=== PATIENT | female | born 1935 | race Caucasian/White ===

== ENCOUNTER 2023-04-10 09:52 | Outpatient (OUT) | payer OTHER, SELFPAY ==
[2023-04-10 10:36] LABS: Basophils Absolute Auto 0.1 10^3/uL (0.0-0.1); Basophils Percent Auto 0.9 % (0.2-2.0); Eosinophils Absolute Auto 0.2 10^3/uL (0.0-0.7); Eosinophils Percent Auto 2.4 % (0.9-7.0); Hematocrit 33.9 % (36.0-48.0); Immature Granulocytes Abs Auto 0.02 10^3/uL (0.00-0.03); Immature Granulocytes Pct Auto 0.3 % (0.0-0.5); Lymphocytes Absolute Auto 1.4 10^3/uL (1.2-3.8); Lymphocytes Percent Auto 21.4 % (20.5-60.0); Mean Corpuscular HGB Conc 32.4 g/dL (29.9-35.2); Mean Corpuscular Hemoglobin 30.2 pg (26.7-34.0); Mean Corpuscular Volume 93.1 fL (81.0-99.0); Mean Platelet Volume 10.1 fL (9.5-13.5); Monocytes Absolute Auto 0.4 10^3/uL (0.3-0.8); Neutrophils Absolute Auto 4.6 10^3/uL (1.4-6.5); Platelet Count 259 10^3/uL (150-450); Red Blood Count 3.64 10^6/uL (4.20-5.40); Red Cell Distribution Width 12.7 % (11.0-15.0); White Blood Count 6.6 10^3/uL (4.0-11.0)
[2023-04-10 11:21] LABS: Alanine Aminotransferase 24 U/L (14-59); Albumin Globulin Ratio 1.1; Albumin Level 3.9 g/dL (3.4-5.0); Alkaline Phosphatase 95 U/L (46-116); Anion Gap 11.5; Aspartate Amino Transferase 11 U/L (15-37); Bilirubin Total 0.3 mg/dL (0.2-1.0); Calcium 9.7 mg/dL (8.5-10.1); Carbon Dioxide 29.4 mmol/L (21.0-32.0); Chloride 100 mmol/L (98-107); Chol HDL Ratio 1.9; Cholesterol 152 mg/dL (<=200); Estimated GFR (African America >60 (>=60); Estimated GFR (Non-African Ame >60 (>=60); Globulin 3.5 g/dL; Glucose 112 mg/dL (74-106); HDL Cholesterol 78 mg/dL (40-60); Potassium 4.9 mmol/L (3.5-5.1); Sodium 136 mmol/L (136-145); Thyroid Stimulating Hormone 3.022 uIU/mL (0.358-3.740); Total Protein 7.4 g/dL (6.4-8.2); Triglycerides 34 mg/dL (<=150); VLDL CHOLESTEROL 6.8 mg/dL
[2023-04-10 12:46] LABS: Estimated Average Glucose 120 mg/dL; Glycohemoglobin A1C 5.8 % (4.5-6.2)
== END 2023-04-10 09:53 | disposition home or self-care (01) ==
LOC: LAB 09:56
PROVIDERS: PCP Internal Medicine; Visit Provider Internal Medicine
DX: E11.9 Type 2 diabetes mellitus without complications (principal); I10 Essential (primary) hypertension; E03.9 Hypothyroidism, unspecified; E78.5 Hyperlipidemia, unspecified
CPT/HCPCS: 36415; 80053; 80061; 83036; 84443; 85025

== ENCOUNTER 2023-08-02 08:41 | Outpatient (OUT) | payer OTHER, SELFPAY ==
--- NOTE | 2023-08-02 08:55 | US_ITS ---
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 TECHNIQUE: Duplex Doppler ultrasound analysis of carotid and vertebral arteries. . Bilateral carotid arterial duplex examination was performed using B-mode, color flow and spectral analysis. Carotid stenosis is reported according to validated velocity parameters, similar to NASCET criteria. FINDINGS: RIGHT CAROTID ARTERY Mild atherosclerotic plaque Subclavian: PSV: 107.3 cm/s cm/s EDV: 11.1 cm/s cm/s CCA: Prox: PSV: 104.8 cm/s cm/s EDV: 11.1 cm/s cm/s Mid: PSV: 82.3 cm/s cm/s EDV: 9.8 cm/s cm/s Distal: PSV: 64.4 cm/s cm/s EDV: 8.4 cm/s cm/s BULB: PSV: 32.9 cm/s cm/s EDV: 5.4 cm/s cm/s ICA: Prox: PSV: 85.6 cm/s cm/s EDV: 17.5 cm/s cm/s Mid: PSV: 88.9 cm/s cm/s EDV: 20.8 cm/s cm/s Distal: PSV: 68.8 cm/s cm/s EDV: 19.3 cm/s cm/s ECA: PSV: 87.4 cm/s cm/s EDV: 5.1 cm/s cm/s VERTEBRAL: PSV: 59.9 cm/s cm/s EDV: 7.2 cm/s cm/s, antegrade ICA/CCA ratio: PSV: 1.4 EDV: 2.5 LEFT CAROTID ARTERY Mild atherosclerotic plaque Subclavian: PSV: 101.7 cm/s cm/s EDV: 6.7 cm/s CCA: Prox: PSV: 96.3 cm/s cm/s EDV: 10.7 cm/s Mid: PSV: 97.9 cm/s cm/s EDV: 13.9 cm/s Distal: PSV: 86.6 cm/s cm/s EDV: 5.8 cm/s BULB: PSV: 62.2 cm/s cm/s EDV: 9.5 cm/s ICA: Prox: PSV: 74.3 cm/s cm/s EDV: 14.9 cm/s Mid: PSV: 80.9 cm/s cm/s EDV: 17.1 cm/s Distal: PSV: 97.4 cm/s cm/s EDV: 20.4 cm/s ECA: PSV: 90.7 cm/s cm/s EDV: 7.3 cm/s VERTEBRAL: PSV: 64.4 cm/s cm/s EDV: 16.0 cm/s , antegrade ICA/CCA ratio: PSV: 1.1 EDV: 3.5 Anechoic echogenicity the right thyroid lobe measuring 4.4 cm US/US carotid duplex BI IMPRESSION: 0-49% flow stenosis bilateral internal carotid arteries Spectral Doppler US Thresholds (Reference: Marciano EG, et al. Radiology 2000; 214:247-252) Stenosis (%) PSV (cm/sec) VICA/VCCA 0-49 <150 <2.5 50-69 150-225 2.5-4.0 >70 >225 >4.0 Electronically authenticated by: ROBSON ROCHA Date: 08/02/2023 10:39
== END 2023-08-02 08:42 | disposition home or self-care (01) ==
LOC: US 08:42
PROVIDERS: PCP Internal Medicine
DX: H35.82 Retinal ischemia (principal)
CPT/HCPCS: 93880

== ENCOUNTER 2024-01-03 10:25 | Outpatient (OUT) | payer OTHER, SELFPAY ==
[2024-01-03 11:13] LABS: Basophils Absolute Auto 0.1 10^3/uL (0.0-0.1); Basophils Percent Auto 1.2 % (0.2-2.0); Eosinophils Absolute Auto 0.3 10^3/uL (0.0-0.7); Hematocrit 36.1 % (36.0-48.0); Hemoglobin 11.9 g/dL (12.0-16.0); Immature Granulocytes Abs Auto 0.02 10^3/uL (0.00-0.03); Immature Granulocytes Pct Auto 0.2 % (0.0-0.5); Lymphocytes Absolute Auto 2.3 10^3/uL (1.2-3.8); Lymphocytes Percent Auto 26.1 % (20.5-60.0); Mean Corpuscular Hemoglobin 30.2 pg (26.7-34.0); Mean Corpuscular Volume 91.6 fL (81.0-99.0); Mean Platelet Volume 10.2 fL (9.5-13.5); Monocytes Absolute Auto 0.5 10^3/uL (0.3-0.8); Monocytes Percent Auto 5.5 % (1.7-12.0); Neutrophils Absolute Auto 5.6 10^3/uL (1.4-6.5); Platelet Count 299 10^3/uL (150-450); Red Blood Count 3.94 10^6/uL (4.20-5.40); Red Cell Distribution Width 12.5 % (11.0-15.0); White Blood Count 8.7 10^3/uL (4.0-11.0)
== END 2024-01-03 10:26 | disposition home or self-care (01) ==
LOC: LAB 10:26
PROVIDERS: PCP Internal Medicine; Visit Provider Internal Medicine
DX: I10 Essential (primary) hypertension (principal)
CPT/HCPCS: 36415; 85025

== ENCOUNTER 2024-04-04 09:05 | Outpatient (OUT) | payer OTHER, SELFPAY ==
[2024-04-04 09:59] LABS: Creatinine Urine Random 14.58 mg/dL (20.00-300.00); Protein Creatinine Ratio Urine 0.66; Total Protein Urine Random 9.6 mg/dL (<=11.9)
[2024-04-04 10:04] LABS: Estimated Average Glucose 111 mg/dL; Glycohemoglobin A1C 5.5 % (4.5-6.2)
[2024-04-04 10:19] LABS: Alanine Aminotransferase 23 U/L (14-59); Albumin Globulin Ratio 1.1; Albumin Level 3.8 g/dL (3.4-5.0); Alkaline Phosphatase 91 U/L (46-116); Anion Gap 12.6; Aspartate Amino Transferase 18 U/L (15-37); BUN Creatinine Ratio 17.8; Bilirubin Total 0.5 mg/dL (0.2-1.0); Calcium 9.8 mg/dL (8.5-10.1); Carbon Dioxide 30.2 mmol/L (21.0-32.0); Chloride 100 mmol/L (98-107); Chol HDL Ratio 1.9; Cholesterol 185 mg/dL (<=200); Estimated GFR (African America >60 (>=60); Estimated GFR (Non-African Ame 52 (>=60); Globulin 3.5 g/dL; Glucose 115 mg/dL (74-106); HDL Cholesterol 97 mg/dL (40-60); Potassium 4.8 mmol/L (3.5-5.1); Sodium 138 mmol/L (136-145); TSH W/ REFLEX FT4 4.033 uIU/mL (0.358-3.740); Total Protein 7.3 g/dL (6.4-8.2); Triglycerides 51 mg/dL (<=150); VLDL CHOLESTEROL 10.2 mg/dL
[2024-04-04 10:48] LABS: Free T4 0.92 ng/dL (0.76-1.46)
== END 2024-04-04 09:06 | disposition home or self-care (01) ==
LOC: LAB 09:05
PROVIDERS: PCP Internal Medicine; Visit Provider Internal Medicine
DX: E78.49 Other hyperlipidemia (principal); E11.42 Type 2 diabetes mellitus with diabetic polyneuropathy; I10 Essential (primary) hypertension; E03.9 Hypothyroidism, unspecified
CPT/HCPCS: 36415; 80053; 80061; 82570; 83036; 84156; 84439; 84443

== ENCOUNTER 2024-05-31 10:28 | Outpatient (OUT) | payer OTHER, SELFPAY ==
--- OUTSIDE RECORDS SUMMARY | 2024-05-31 10:51 | XMS_ITS | CCD ---
Author Organization [facility] Informat ion [facility] Care Team Providers Care Well Drill Operator Name Role Phone SHAIKH SIMON Primary Care Physician FAWWAD, SELLERS H Primary Care Unavailable TIMMIS, SANDRA Attending Unavailable TIMMIS, SANDRA Consulting Unavailable TIMMIS, SANDRA Admitting Unavailable TIMMIS, SANDRA Admitting Unavailable FAWWAD, SELLERS H Primary Care Unavailable TIMMIS, SANDRA Attending Unavailable TIMMIS, SANDRA Consulting Unavailable FAWWAD, SELLERS H Primary Care Unavailable TIMMIS, SANDRA Attending Unavailable TIMMIS, SANDRA Consulting Unavailable TIMMIS, SANDRA Admitting Unavailable AGUBOSIM, KIRSTEN Consulting Unavailable BASSAMSKIE MAYA Consulting Unavailable FAWWAD, SELLERS H Primary Care Unavailable TIMMIS, SANDRA Attending Unavailable TIMMIS, SANDRA Consulting Unavailable TIMMIS, SANDRA Admitting Unavailable DR ALEJANDRO EDWARDS Consulting Unavailable FAWWAD, SELLERS H Primary Care Unavailable FAWWAD, SELLERS H Admitting Unavailable FAWWAD, SELLERS H Attending Unavailable FAWWAD, SELLERS H Consulting Unavailable FAWWAD, SELLERS H Primary Care Unavailable FAWWAD, SELLERS H Admitting Unavailable FAWWAD, SELLERS H Attending Unavailable FAWWAD, SELLERS H Consulting Unavailable FAWWAD, SELLERS H Primary Care Unavailable FAWWAD, SELLERS H Admitting Unavailable FAWWAD, SELLERS H Attending Unavailable FAWWAD, SELLERS H Consulting Unavailable ERNESTO MEDRANO Consulting Unavailable Kanwal Bo MD Unavailable [phone] Solange ZELAYA, Ruthie Unavailable Unallocated Yojana VEGAS Provider Primary Care Provi maricruz SHAIKH SIMON Attending Unavailable RUTHIE NARVAEZ Attending UnavailSHAIKH Gonsalves Attending Unavailable SANDRA RAE Attending Unavailable Vickey English MD Primary Care Provider [phone] Medications Current Medications Medication Drug Class(es) Dates Sig (Normalized) Sig (Original) acetaminophen 325 mg / oxyCODONE hydrochloride 5 mg oral tablet (2 sources) Opioid Agonist Start: 05-27-2024 take 1 tablet by mouth once oxyCODONE-acetamin ophen (Percocet) 5-325 MG tablet Indications: Chronic knee pain after total replacement of both knee joints Take 1 tablet by mouth every 12 (twelve) hours if needed for severe pain 60 tablet 05/27/2024 Active End: 05-27-2024 take 1 tablet by mouth every six hours as needed for pain oxyCODONE-acetaminophen (Percocet) 5-325 MG tablet Take 1 tablet by mouth every 6 (six) hours if needed for severe pain 05/27/2024 Discontinued (Reorder) amLODIPine 10 mg oral tablet (4 sources) Dihydropyridine Calcium Channel Fly Start: 01-09-2024 take 1 tablet by mouth once daily amLODIPine (Norvasc) 10 MG tablet Indications: Essential (primary) hypertension (CMS/HCC) Take 1 tablet (10 mg) by mouth Daily 90 tablet 1 01/09/2024 Active carvedilol 12.5 mg oral tablet (4 sources) alpha-Adrenergic Fly, beta-Adrenergic Fly Start: 01-09-2024 take 1 tablet by mouth once carvedilol (Coreg) 12.5 MG tablet Indications: Essential (primary) hypertension (CMS/HCC) Take 1 tablet (12.5 mg) by mouth every 12 (twelve) hours 180 tablet 1 01/09/2024 Active fexofenadine hydrochloride 180 mg oral tablet (4 sources) Histamine-1 Receptor Antagonist Start: 01-09-2024 End: 07-07-2024 take 1 tablet by mouth once daily as needed fexofenadine (Tiana) 180 MG tablet Indications: Chronic allergic rhinitis Take 1 tablet (180 mg) by mouth Daily as needed (Allergies) 90 tablet 1 01/09/2024 07/07/2024 Active fluticasone propionate 0.5 mg/ml topical lotion (3 sources) Corticosteroid End: 05-22-2024 fluticasone (Cutivate) 0.05 % lotion Apply 1 application topically in the morning. 05/22/2024 Discontinued (Therapy completed) furosemide 20 mg oral tablet (4 sources) Loop Diuretic Start: 01-09-2024 End: 07-07-2024 take 1 tablet by mouth once daily furosemide (Lasix) 20 MG tablet Indications: Essential (primary) hypertension (CMS/HCC) Take 1 tablet (20 mg) by mouth Daily 90 tablet 1 01/09/2024 07/07/2024 Active gabapentin 100 mg oral capsule (4 sources) Anti-epileptic Agent Start: 10-25-2023 take 1 capsule by mouth in the morning, then take 1 capsule by mouth in the evening, then take 1 capsule by mouth at bedtime gabapentin (Neurontin) 100 MG capsule Indications: Type 2 diabetes mellitus with diabetic polyneuropathy, 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/HCC) TAKE 1 CAPSULE BY MOUTH IN THE MORNING and ONE CAPSULE IN THE EVENING and ONE CAPSULE AT BEDTIME 270 capsule 1 10/25/2023 Active levothyroxine sodium 0.075 mg oral tablet (4 sources) l-Thyroxine Start: 01-09-2024 take 1 tablet by mouth once daily levothyroxine (Synthroid, Levoxyl) 75 MCG tablet Indications: Hypothyroidism, unspecified (CMS/HCC) Take 1 tablet (75 mcg) by mouth Daily 90 tablet 1 01/09/2024 Active losartan potassium 100 mg oral tablet (4 sources) Angiotensin 2 Receptor Fly Start: 01-09-2024 take 1 tablet by mouth once daily losartan (Cozaar) 100 MG tablet Indications: Essential (primary) hypertension (CMS/HCC) Take 1 tablet (100 mg) by mouth Daily 90 tablet 1 01/09/2024 Active metFORMIN hydrochloride 500 mg oral tablet (4 sources) Biguanide Start: 01-09-2024 take 1 tablet by mouth in the morning metFORMIN (Glucophage) 500 MG tablet Indications: Type 2 diabetes mellitus without complications (CMS/HCC) Take 1 tablet (500 mg) by mouth in the morning and 1 tablet (500 mg) before bedtime. 180 tablet 1 01/09/2024 Active sertraline 50 mg oral tablet (4 sources) Serotonin Reuptake Inhibitor Start: 01-09-2024 End: 07-07-2024 take 1.5 tablets by mouth once daily sertraline (Zoloft) 50 MG tablet Indications: Recurrent major depressive disorder, in full remission (CMS/HCC) Take 1.5 tablets (75 mg) by mouth Daily 135 tablet 1 01/09/2024 07/07/2024 Active simvastatin 20 mg oral tablet (4 sources) HMG-CoA Reductase Inhibitor Start: 01-09-2024 End: 07-07-2024 take 1 tablet by mouth at bedtime simvastatin (Zocor) 20 MG tablet Indications: Other hyperlipidemia (CMS/HCC) Take 1 tablet (20 mg) by mouth at bedtime 90 tablet 1 01/09/2024 07/07/2024 Active Problems Active Problems Problem Classification Problem Date Documented Date Episodic/Chronic Diabetes mellitus with complications (4 sources) Polyneuropathy due to type 2 diabetes mellitus; Translations: [Type 2 diabetes mellitus with diabetic polyneuropathy] Onset: 07-06-2023 07-06-2023 Chronic Diabetes mellitus without complication (9 sources) Type 2 diabetes mellitus without complications; Translations: [Type 2 diabetes mellitus without complication] Onset: 04-01-2022 Chronic Disorders of lipid metabolism (5 sources) Hyperlipidemia, unspecified; Translations: [Hyperlipidemia] Onset: 01-12-2022 07-08-2023 Chronic Essential hypertension (9 sources) Essential (primary) hypertension; Translations: [Essential hypertension] Onset: 11-10-2022 07-06-2023 Chronic Gout and other crystal arthropathies (1 source) Gout, unspecified; Translations: [GOUT UNSPECIFIED] Onset: 01-12-2022 Chronic Mood disorders (5 sources) Major depressive disorder, single episode, unspecified; Translations: [Recurrent major depression in full remission] Onset: 01-12-2022 07-06-2023 Chronic Osteoarthritis (1 source) Unspecified osteoarthritis, unspecified site; Translations: [UNSPECIFIED OSTEOARTHRITIS UNS SITE] Onset: 01-12-2022 Chronic Osteoporosis (1 source) Age-related osteoporosis without current pathological fracture; Translations: [AGE-REL OSTEOPOR W/O CURR PATH FX] Onset: 01-12-2022 Chronic Other connective tissue disease (1 source) Presence of right artificial hip joint; Translations: [PRESENCE RIGHT ARTIFICIAL HIP JOINT] Onset: 02-01-2022 Chronic Other connective tissue disease (1 source) Presence of right artificial knee joint; Translations: [PRESENCE RT ARTIFICIAL KNEE JOINT] Onset: 02-01-2022 Chronic Other connective tissue disease (1 source) Presence of artificial knee joint, bilateral; Translations: [PRESENCE ARTIFICIAL KNEE JNT BILAT] Onset: 01-12-2022 Chronic Other ear and sense organ disorders (4 sources) Mixed conductive and sensorineural hearing loss, unilateral, 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; Translations: [MIXD C AND SSHL UL L EAR RSTRD HR C S] Onset: 11-11-2021 Chronic Other ear and sense organ disorders (2 sources) Mixed conductive AND sensorineural hearing loss; Translations: [Mixed conductive and sensorineural hearing loss, unilateral, 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] 05-22-2024 Chronic Other non-traumatic joint disorders (5 sources) Pain in right hip; Translations: [PAIN IN RIGHT HIP] Onset: 02-01-2022 Episodic Other non-traumatic joint disorders (5 sources) 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; Translations: [Pain in right knee] Onset: 07-06-2023 07-06-2023 Episodic Other upper respiratory disease (4 sources) Allergic rhinitis; Translations: [Allergic rhinitis, unspecified] Onset: 01-09-2024 01-09-2024 Chronic Other upper respiratory infections (1 source) Chronic maxillary sinusitis; Translations: [CHRONIC MAXILLARY SINUSITIS] Onset: 01-12-2022 Chronic Otitis media and related conditions (7 sources) Unspecified nonsuppurative otitis media, left ear; Translations: [Other specified disorders of Eustachian tube, left ear] Onset: 01-11-2022 Episodic Retinal detachments; defects; vascular occlusion; and retinopathy (4 sources) Exudative age-related macular degeneration; Translations: [Exudative age-related macular degeneration, bilateral, with active choroidal neovascularization] Onset: 07-08-2023 07-08-2023 Chronic Thyroid disorders (9 sources) Hypothyroidism, unspecified; Translations: [Hypothyroidism] Onset: 11-10-2022 07-06-2023 Chronic Unclassified (3 sources) LOW BACK PAIN, UNSPECIFIED; Translations: [LOW BACK PAIN, UNSPECIFIED] Onset: 02-01-2022 Unclassified (1 source) PERSONAL HISTORY OF COVID-19; Translations: [PERSONAL HISTORY OF COVID-19] Onset: 01-12-2022 Unclassified (1 source) CONTACT W/AND (SUSP) EXPOS COVID-19; Translations: [CONTACT W/AND (SUSP) EXPOS COVID-19] Onset: 01-11-2022 Unclassified (1 source) 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 05-27-2024 Past or Other Problems Problem Classification Problem Date Documented Da te Episodic/Chronic Heart valve disorders (1 source) Cardiac murmur, unspecified; Translations: [CARDIAC MURMUR UNSPECIFIED] Onset: 01-06-2022 Episodic Other aftercare (1 source) Other world travel counselor (current) drug therapy; Translations: [OTH SQUIRREL MAN CURRENT DRUG THERAPY] Onset: 01-06-2022 Episodic Other non-traumatic joint disorders (1 source) Pain in right knee; Translations: [PAIN IN RIGHT KNEE] Onset: 02-01-2022 Episodic Residual codes; unclassified (1 source) Acquired absence of other specified parts of digestive tract; Translations: [ACQ ABSENCE OTH PART DIGESTV TRACT] Onset: 01-12-2022 Episodic Unclassified (1 source) LOW BACK PAIN, UNSPECIFIED; Translations: [LOW BACK PAIN, UNSPECIFIED] Onset: 01-28-2022 Results Test Name Value Interpretation Reference Range Facility CBC W MANUAL DIFFon 11-08-19 23 ATYPICAL LYMPH # Normal [facility] Comment on above: Performed By: #### P OCGLUC #### [facility] [address] [address] [address] Germania Cadena ATYPICAL LYMPH % Normal [facility] Comment on above: Performed By: #### P OCGLUC #### [facility] [address] [address] [address] Germania Cadena BAND # 0.0 103/ul Normal 0.0-0.[address] [facility] Comment on above: Performed By: #### P OCGLUC #### [facility] [address] [address] [address] Germania Cadena BAND % 0 % Normal 0-[address] [facility] Comment on above: Performed By: #### P OCGLUC #### [facility] [address] [address] [address] Germania Cadena BASOM # 0.00 103/ul Normal 0.00-0.10 [facility] Comment on above: Performed By: #### P OCGLUC #### [facility] [address] [address] [address] Germania Cadena BASOM % 0.0 % Critically low 0.2-2.0 [facility] Comment on above: Performed By: #### P OCGLUC #### [facility] [address] [address] [address] Germania Cadena BLAST # Normal [facility] Comment on above: Performed By: #### P OCGLUC #### [facility] [address] [address] [address] Germania Cadena BLAST % Normal [facility] Comment on above: Performed By: #### P OCGLUC #### [facility] [address] [address] [address] Germania Cadena CORRECTED WBC Normal 4.0-11.0 [facility] Comment on above: Performed By: #### P OCGLUC #### [facility] [address] [address] [address] Germania Cadena EOS # 0.25 103/ul Normal 0.00-0.70 [facility] Comment on above: Performed By: #### P OCGLUC #### [facility] [address] [address] [address] Germania Cadena EOS% 4.0 % Normal 0.9-7.0 [facility] Comment on above: Performed By: #### P OCGLUC #### [facility] [address] [place] [address] Dr. Germania Cadena HCT 34.6 % Critically low 36.0-48.0 [facility] Comment on above: Performed By: #### P OCGLUC #### [facility] [address] [place] [address] Dr. Germania Cadena HGB 11.5 g/dl Critically low 12.0-16.0 [facility] Comment on above: Performed By: #### P OCGLUC #### [facility] [address] [address] [address] Germania Cadena LYMPHM # 1.24 103/ul Normal 1.20-3.80 [facility] Comment on above: Performed By: #### P OCGLUC #### [facility] [address] [address] [address] Germania Cadena LYMPHM% 20.0 % Critically low 20.5-60.0 [facility] Comment on above: Performed By: #### P OCGLUC #### [facility] [address] [address] [address] Germania Cadena MCH 30.4 pg Normal 26.7-34.0 [facility] Comment on above: Performed By: #### P OCGLUC #### [facility] [address] [place] [address] Dr. Germania Cadena MCHC 33.2 g/dl Normal 29.9-35.2 [facility] Comment on above: Performed By: #### P OCGLUC #### [facility] [address] [address] [address] Germania Cadena MCV 91.5 fL Normal 81.0-99.0 [facility] Comment on above: Performed By: #### P OCGLUC #### [facility] [address] [place] [address] Dr. Germania Cadena METAMYELOCYTE # Normal [facility] Comment on above: Performed By: #### P OCGLUC #### [facility] [address] [address] [address] Germania Cadena METAMYELOCYTE % Normal [facility] Comment on above: Performed By: #### P OCGLUC #### [facility] [address] [address] [address] Germania Cadena MONOM# 0.25 103/ul Critically low 0.30-0.80 [facility] Comment on above: Performed By: #### P OCGLUC #### [facility] [address] [address] [address] Germania Cadena MONOM% 4.0 % Normal 1.7-12.0 [facility] Comment on above: Performed By: #### P OCGLUC #### [facility] [address] [address] [address] Germania Cadena MPV 9.9 fL Normal 9.5-13.5 [facility] Comment on above: Performed By: #### P OCGLUC #### [facility] [address] [address] [address] Germania Cdaena MYELOCYTE # Normal [facility] Comment on above: Performed By: #### P OCGLUC #### [facility] [address] [address] [address] Germania Cadena MYELOCYTE % Normal [facility] Comment on above: Performed By: #### P OCGLUC #### [facility] [address] [place] [address] Dr. Germania Cadena NRBC Normal [facility] Comment on above: Performed By: #### P OCGLUC #### [facility] [address] [address] [address] Germania Cadena PLT 211 103/ul Normal 150-450 [facility] Comment on above: Performed By: #### P OCGLUC #### [facility] [address] [place] [address] Dr. Germania Cadena RBC 3.78 106/ul Critically low 4.20-5.40 [facility] Comment on above: Performed By: #### P OCGLUC #### [facility] [address] [place] [address] Dr. Germania Cadena RDW 12.6 % Normal 11.0-15.0 [facility] Comment on above: Performed By: #### P OCGLUC #### [facility] [address] [address] [address] Germania Cadena SEG # 4.46 103/ul Normal 1.40-6.50 [facility] Comment on above: Performed By: #### P OCGLUC #### [facility] [address] [place] [address] Dr. Germania Cadena SEG % 72.0 % Normal 43.0-75.0 [facility] Comment on above: Performed By: #### P OCGLUC #### [facility] [address] [address] [address] Germania Cadena WBC 6.2 103/ul Normal 4.0-11.0 [facility] Comment on above: Performed By: #### P OCGLUC #### [facility] [address] [place] [address] Dr. Germania Cadena GLYCOHEMOGLOBIN A1Con 2022 ADA RECOMMENDATION SEE BELOW Normal [facility] Comment on above: Result Comment: ADA RECOMMENDED LIMIT 4.0 - 6.0 ADA THERAPEUTIC TARGET < 7.0 ACTION SUGGESTED > 7.0 Performed By: #### A 1C #### [facility] [address] [place] [address] Dr. Germania Cadena Glucose [Mass/Vol] 114 mg/dL Normal [facility] Comment on above: Performed By: #### A 1C #### [facility] [address] [place] [address] Dr. Germania Cadena HbA1c (Bld) [Mass fraction] 5.6 % Normal 4.5-6.2 [facility] Comment on above: Performed By: #### A 1C #### [facility] [address] [place] [address] Dr. Germania Cadena PROF 14(COMP METB)on 023 Albumin [Mass/Vol] 3.3 g/dL Critically low 3.4-5.0 [facility] Comment on above: Performed By: #### P OCGLUC #### [facility] [address] [place] [address] Dr. Germania Cadena Albumin/Globulin [Mass ratio] 0.9 {ratio} Normal [facility] Comment on above: Performed By: #### P OCGLUC #### [facility] [address] [place] [address] Dr. Germania Cadena ALP [Catalytic activity/Vol] 91 U/L Normal 46-116 [facility] Comment on above: Performed By: #### P OCGLUC #### [facility] [address] [place] [address] Dr. Germania Cadena ALT [Catalytic activity/Vol] 40 U/L Normal 14-59 [facility] Comment on above: Performed By: #### P OCGLUC #### [facility] [address] [address] [address] Germania Cadena Anion gap [Moles/Vol] 11.1 mmol/L Normal [facility] Comment on above: Performed By: #### P OCGLUC #### [facility] [address] [address] [address] Germania Cadena AST [Catalytic activity/Vol] 22 U/L Normal 15-37 [facility] Comment on above: Performed By: #### P OCGLUC #### [facility] [address] [address] [address] Germania Cadena Bilirubin [Mass/Vol] 0.2 mg/dL Normal 0.2-1.0 [facility] Comment on above: Performed By: #### P OCGLUC #### [facility] [address] [address] [address] Germania Cadena Calcium [Mass/Vol] 9.2 mg/dL Normal 8.5-10.1 [facility] Comment on above: Performed By: #### P OCGLUC #### [facility] [address] [place] [address] Dr. Germania Cadena Chloride [Moles/Vol] 101 mmol/L Normal 98-107 [facility] Comment on above: Performed By: #### P OCGLUC #### [facility] [address] [address] [address] Germania Cadena CO2 [Moles/Vol] 28.8 mmol/L Normal 21.0-32.0 [facility] Comment on above: Performed By: #### P OCGLUC #### [facility] [address] [address] [address] Germania Cadena Creatinine [Mass/Vol] 0.85 mg/dL Normal 0.55-1.02 [facility] Comment on above: Performed By: #### P OCGLUC #### [facility] [address] [address] [address] Germania Cadena EGFR-AF LIBERIAN >60 Normal >=60 [facility] Comment on above: Performed By: #### P OCGLUC #### [facility] [address] [address] [address] Germania Cadena EGFR-NON AF LIBERIAN >60 Normal >=60 [facility] Comment on above: Performed By: #### P OCGLUC #### [facility] [address] [address] [address] Germania Cadena Globulin (S) [Mass/Vol] 3.7 g/dL Normal [facility] Comment on above: Performed By: #### P OCGLUC #### [facility] [address] [address] [address] Germania Cadena Glucose [Mass/Vol] 106 mg/dL Normal 74-106 [facility] Comment on above: Performed By: #### P OCGLUC #### [facility] [address] [address] [address] Germania Cadena Potassium [Moles/Vol] 4.3 mmol/L Normal 3.5-5.1 [facility] Comment on above: Performed By: #### P OCGLUC #### [facility] [address] [address] [address] Germania Cadena Protein [Mass/Vol] 7.0 g/dL Normal 6.4-8.2 [facility] Comment on above: Performed By: #### P OCGLUC #### [facility] [address] [address] [address] Germania Cadena Sodium [Moles/Vol] 137 mmol/L Normal 136-145 [facility] Comment on above: Performed By: #### P OCGLUC #### [facility] [address] [address] [address] Germania Cadena Urea nitrogen [Mass/Vol] 15.0 mg/dL Normal 7.0-18.0 [facility] Comment on above: Performed By: #### P OCGLUC #### [facility] [address] [address] [address] Germania Cadena Urea nitrogen/Creatinine [Mass ratio] 17.6 mg/mg Normal [facility] Comment on above: Performed By: #### P OCGLUC #### [facility] [address] [place] [address] Dr. Germania Cadena TSHon 11-07-2022 TSH 2.051 uIU/mL Normal 0.358-3.740 [facility] Comment on above: Performed By: #### P OCGLUC #### [facility] [address] [place] [address] Dr. Germania Cadena MICROALBUMIN URINEon 022 Albumin, Urine 24.8 ug/mL Normal Not Estab. [facility] Comment on above: Performed By: #### M ALBLC #### [facility] [address] [place] [address] Dr. Germania Cadena CBC AUTO DIFFon 04-01-2022 BASO # 0.1 103/ul Normal 0.0-0.1 [facility] Comment on above: Performed By: #### C BC #### [facility] [address] [place] [address] Dr. Germania Cadena Basophils/100 WBC (Bld) 1.0 % Normal 0.2-2.0 [facility] Comment on above: Performed By: #### C BC #### [facility] [address] [place] [address] Dr. Germania Cadena EO # 0.3 103/ul Normal 0.0-0.7 [facility] Comment on above: Performed By: #### C BC #### [facility] [address] [place] [address] Dr. Germania Cadena Eosinophils/100 WBC (Bld) 4.5 % Normal 0.9-7.0 [facility] Comment on above: Performed By: #### C BC #### [facility] [address] [place] [address] Dr. Germania Cadena Erythrocyte distribution width (RBC) [Ratio] 12.5 % Normal 11.0-15.0 [facility] Comment on above: Performed By: #### C BC #### [facility] [address] [place] [address] Dr. Germania Cadena Hematocrit (Bld) [Volume fraction] 35.7 % Critically low 36.0-48.0 [facility] Comment on above: Performed By: #### C BC #### [facility] [address] [place] [address] Dr. Germania Cadena Hemoglobin (Bld) [Mass/Vol] 11.8 g/dL Critically low 12.0-16.0 [facility] Comment on above: Performed By: #### C BC #### [facility] [address] [place] [address] Dr. Germania Cadena IG # 0.01 10e3/ul Normal 0.00-0.03 [facility] Comment on above: Performed By: #### C BC #### [facility] [address] [place] [address] Dr. Germania Cadena IG % 0.2 % Normal 0.0-0.5 [facility] Comment on above: Performed By: #### C BC #### [facility] [address] [place] [address] Dr. Germania Cadena LYMPH # 1.6 103/ul Normal 1.2-3.8 [facility] Comment on above: Performed By: #### C BC #### [facility] [address] [place] [address] Dr. Germania Cadena Lymphocytes/100 WBC (Bld) 26.9 % Normal 20.5-60.0 [facility] Comment on above: Performed By: #### C BC #### [facility] [address] [place] [address] Dr. Germania Cadena MANUAL DIFF REQ NO [facility] Comment on above: Performed By: #### C BC #### [facility] [address] [place] [address] Dr. Germania Cadena MCH (RBC) [Entitic mass] 30.6 pg Normal 26.7-34.0 [facility] Comment on above: Performed By: #### C BC #### [facility] [address] [place] [address] Dr. Germania Cadena MCHC (RBC) [Mass/Vol] 33.1 g/dL Normal 29.9-35.2 [facility] Comment on above: Performed By: #### C BC #### [facility] [address] [address] [address] Germania Cadena MCV (RBC) [Entitic vol] 92.5 fL Normal 81.0-99.0 [facility] Comment on above: Performed By: #### C BC #### [facility] [address] [address] [address] Germania Cadena MONO # 0.5 103/ul Normal 0.3-0.8 [facility] Comment on above: Performed By: #### C BC #### [facility] [address] [place] [address] Dr. Germania Cadena Monocytes/100 WBC (Bld) 8.2 % Normal 1.7-12.0 [facility] Comment on above: Performed By: #### C BC #### [facility] [address] [place] [address] Dr. Germania Cadena NEUT # 3.6 103/ul Normal 1.4-6.5 [facility] Comment on above: Performed By: #### C BC #### [facility] [address] [place] [address] Dr. Germania Cadena Neutrophils/100 WBC (Bld) 59.2 % Normal 43.0-75.0 [facility] Comment on above: Performed By: #### C BC #### [facility] [address] [address] [address] Germania Cadena Platelet mean volume (Bld) [Entitic vol] 10.9 fL Normal 9.5-13.5 [facility] Comment on above: Performed By: #### C BC #### [facility] [address] [address] [address] Germania Cadena PLT 254 103/ul Normal 150-[address] [facility] Comment on above: Performed By: #### C BC #### [facility] [address] [place] [address] Dr. Germania Cadena RBC 3.86 106/ul Critically low 4.20-5.40 [facility] Comment on above: Performed By: #### C BC #### [facility] [address] [address] [address] Germania Cadena WBC 6.0 103/ul Normal 4.0-11.0 [facility] Comment on above: Performed By: #### C BC #### [facility] [address] [place] [address] Dr. Germania Cadena CREATININE URINEon URINE CREAT 40.38 mg/dL Normal 20.00-300.00 [facility] Comment on above: Performed By: #### C REAU #### [facility] [address] [place] [address] Dr. Germania Cadena GLYCOHEMOGLOBIN A1Con 2021 ADA RECOMMENDATION SEE BELOW Normal [facility] Comment on above: Result Comment: ADA RECOMMENDED LIMIT 4.0 - 6.0 ADA THERAPEUTIC TARGET < 7.0 ACTION SUGGESTED > 7.0 Performed By: #### A 1C #### [facility] [address] [place] [address] Dr. Germania Cadena Glucose [Mass/Vol] 117 mg/dL Normal [facility] Comment on above: Performed By: #### A 1C #### [facility] [address] [place] [address] Dr. Germania Cadena HbA1c (Bld) [Mass fraction] 5.7 % Normal 4.5-6.2 [facility] Comment on above: Performed By: #### A 1C #### [facility] [address] [place] [address] Dr. Germania Cadena PROF CHEM 8 (BAS METB)on Anion gap [Moles/Vol] 14.6 mmol/L Normal [facility] Comment on above: Performed By: #### B MP #### [facility] [address] [place] [address] Dr. Germania Cadena Calcium [Mass/Vol] 9.8 mg/dL Normal 8.5-10.1 [facility] Comment on above: Performed By: #### B MP #### [facility] [address] [place] [address] Dr. Germania Cadena Chloride [Moles/Vol] 97 mmol/L Critically low 98-[address] [facility] Comment on above: Performed By: #### B MP #### [facility] [address] [address] [address] Germania Cadena CO2 [Moles/Vol] 29.9 mmol/L Normal 21.0-32.0 [facility] Comment on above: Performed By: #### B MP #### [facility] [address] [address] [address] Germania Cadena Creatinine [Mass/Vol] 0.78 mg/dL Normal 0.55-1.[address] [facility] Comment on above: Performed By: #### B MP #### [facility] [address] [place] [address] Dr. Germania Cadena EGFR-AF LIBERIAN >60 Normal >=60 [facility] Comment on above: Performed By: #### B MP #### [facility] [address] [place] [address] Dr. Germania Cadena EGFR-NON AF LIBERIAN >60 Normal >=[address] [facility] Comment on above: Performed By: #### B MP #### [facility] [address] [place] [address] Dr. Germania Cadena Glucose [Mass/Vol] 97 mg/dL Normal 74-106 [facility] Comment on above: Performed By: #### B MP #### [facility] [address] [place] [address] Dr. Germania Cadena Potassium [Moles/Vol] 4.5 mmol/L Normal 3.5-5.[address] [facility] Comment on above: Performed By: #### B MP #### [facility] [address] [address] [address] Germania Cadena Sodium [Moles/Vol] 137 mmol/L Normal 136-145 [facility] Comment on above: Performed By: #### B MP #### [facility] [address] [address] [address] Germania Cadena Urea nitrogen [Mass/Vol] 12.0 mg/dL Normal 7.0-18.0 [facility] Comment on above: Performed By: #### B MP #### [facility] [address] [address] [address] Germania Cadena Urea nitrogen/Creatinine [Mass ratio] 15.4 mg/mg Normal [facility] Comment on above: Performed By: #### B MP #### [facility] [address] [address] [address] Germania Cadena XR LSPINE 2_3 VIEWSon 2021 XR LSPINE 2_3 VIEWS EXAMINATION: XR LSPINE 2_3 VIEWS HISTORY: Low back pain ; chronic lumbar pain with new hip and knee pain COMPARISON: No relevant comparison available. FINDINGS: BONES: Moderate left convex curvature lumbar spine. No fracture or spondylolisthesis. Straightening of normal lordotic curvature. Moderate marked degenerative facet arthropathy L3-L4 through L5-S1. DISC SPACES: Moderate-marked disc space narrowing at all lumbar levels with prominent endplate osteophytes. PARASPINOUS: Marked atherosclerotic disease of aorta without visible aneurysm. OTHER: Negative. IMPRESSION: 1. No appreciable acute abnormality. 2. 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 Electronically authenticated by: ALEJANDRO EDWARDS Date: 2022-01-28 18:12 Normal [address] [facility] POINT OF CARE GLUCOSEon 12-23 Glucose [Mass/Vol] 112 mg/dL Critically high 74-106 [facility] Comment on above: Performed By: #### P OCGLUC #### [facility] [address] [address] [address] Germania Cadena Covid-19 PCR (CVDTBH)on 12-22 SARS-CoV-2 (COVID-19) RNA RONNIE+probe Ql (Unsp spec) Not detected Normal NOT DETECTED [facility] Comment on above: Result Comment: This test is not yet approved or cleared by the [place] FDA. When there are no FDA-approved or cleared tests available, and other criteria are met, FDA can make tests available under an emergency access mechanism called an Emergency Use Authorization (EUA). The EUA for this test is supported by the Wound Care Coordinator of Health and Human Service's (HHS's) declaration that circumstances exist to justify the emergency use of in vitro diagnostics for the detection and/or diagnosis of the virus that causes COVID-19. This EUA will remain in effect (meaning this test can be used) for the duration of the COVID-19 declaration justifying emergency of IVDs, unless it is terminated or revoked by FDA (after which the test may no longer be used). When diagnostic testing is negative, the possibility of a false negative should be considered in the context of a patient's recent exposures and the presence of clinical signs and symptoms consistent with SARS-CoV-2. Performed By: #### C VDTB #### [facility] [address] [place] [address] Dr. Germania Cadena CBC AUTO DIFFon 01-03-2022 BASO # 0.0 103/ul Normal 0.0-0.1 [facility] Comment on above: Performed By: #### C BC #### [facility] [address] [place] [address] Dr. Germania Cadena Basophils/100 WBC (Bld) 0.5 % Normal 0.2-2.0 [facility] Comment on above: Performed By: #### C BC #### [facility] [address] [place] [address] Dr. Germania Cadena EO # 0.1 103/ul Normal 0.0-0.7 [facility] Comment on above: Performed By: #### C BC #### [facility] [address] [place] [address] Dr. Germania Cadena Eosinophils/100 WBC (Bld) 1.8 % Normal 0.9-7.[address] [facility] Comment on above: Performed By: #### C BC #### [facility] [address] [place] [address] Dr. Germania Cadena Erythrocyte distribution width (RBC) [Ratio] 13.1 % Normal 11.0-15.[address] [facility] Comment on above: Performed By: #### C BC #### [facility] [address] [place] [address] Dr. Germania Cadena Hematocrit (Bld) [Volume fraction] 34.8 % Critically low 36.0-48.0 [facility] Comment on above: Performed By: #### C BC #### [facility] [address] [place] [address] Dr. Germania Cadena Hemoglobin (Bld) [Mass/Vol] 11.4 g/dL Critically low 12.0-16.0 [facility] Comment on above: Performed By: #### C BC #### [facility] [address] [place] [address] Dr. Germania Cadena IG # 0.02 10e3/ul Normal 0.00-0.03 [facility] Comment on above: Performed By: #### C BC #### [facility] [address] [place] [address] Dr. Germania Cadena IG % 0.3 % Normal 0.0-0.5 [facility] Comment on above: Performed By: #### C BC #### [facility] [address] [place] [address] Dr. Germania Cadena LYMPH # 1.0 103/ul Critically low 1.2-3.8 [facility] Comment on above: Performed By: #### C BC #### [facility] [address] [place] [address] Dr. Germania Cadena Lymphocytes/100 WBC (Bld) 13.1 % Critically low 20.5-60.0 [facility] Comment on above: Performed By: #### C BC #### [facility] [address] [place] [address] Dr. Germania Cadena MANUAL DIFF REQ NO [facility] Comment on above: Performed By: #### C BC #### [facility] [address] [place] [address] Dr. Germania Cadena MCH (RBC) [Entitic mass] 30.8 pg Normal 26.7-34.[address] [facility] Comment on above: Performed By: #### C BC #### [facility] [address] [place] [address] Dr. Germania Cadena MCHC (RBC) [Mass/Vol] 32.8 g/dL Normal 29.9-35.[address] [facility] Comment on above: Performed By: #### C BC #### [facility] [address] [address] [address] Germania Cadena MCV (RBC) [Entitic vol] 94.1 fL Normal 81.0-99.0 [facility] Comment on above: Performed By: #### C BC #### [facility] [address] [address] [address] Germania Cadena MONO # 0.4 103/ul Normal 0.3-0.8 [facility] Comment on above: Performed By: #### C BC #### [facility] [address] [address] [address] Germania Cadena Monocytes/100 WBC (Bld) 5.5 % Normal 1.7-12.0 [facility] Comment on above: Performed By: #### C BC #### [facility] [address] [address] [address] Germania Cadena NEUT # 6.1 103/ul Normal 1.4-6.5 [facility] Comment on above: Performed By: #### C BC #### [facility] [address] [address] [address] Germania Cadena Neutrophils/100 WBC (Bld) 78.8 % Critically high 43.0-75.0 [facility] Comment on above: Performed By: #### C BC #### [facility] [address] [address] [address] Germania Cadena Platelet mean volume (Bld) [Entitic vol] 10.6 fL Normal 9.5-13.[address] [facility] Comment on above: Performed By: #### C BC #### [facility] [address] [address] [address] Germania Cadena PLT 193 103/ul Normal 150-[address] [facility] Comment on above: Performed By: #### C BC #### [facility] [address] [address] [address] Germania Cadena RBC 3.70 106/ul Critically low 4.20-5.40 [facility] Comment on above: Performed By: #### C BC #### [facility] [address] [address] [address] Germania Cadena WBC 7.8 103/ul Normal 4.0-11.0 [facility] Comment on above: Performed By: #### C BC #### [facility] [address] [place] [address] Dr. Germania Cadena PROF CHEM 8 (BAS METB)on Anion gap [Moles/Vol] 11.5 mmol/L Normal [facility] Comment on above: Performed By: #### B MP #### [facility] [address] [place] [address] Dr. Germania Cadena Calcium [Mass/Vol] 9.0 mg/dL Normal 8.5-10.1 [facility] Comment on above: Performed By: #### B MP #### [facility] [address] [place] [address] Dr. Germania Cadena Chloride [Moles/Vol] 99 mmol/L Normal 98-107 [facility] Comment on above: Performed By: #### B MP #### [facility] [address] [place] [address] Dr. Germania Cadena CO2 [Moles/Vol] 30.2 mmol/L Normal 21.0-32.0 [facility] Comment on above: Performed By: #### B MP #### [facility] [address] [place] [address] Dr. Germania Cadena Creatinine [Mass/Vol] 0.85 mg/dL Normal 0.55-1.02 [facility] Comment on above: Performed By: #### B MP #### [facility] [address] [place] [address] Dr. Germania Cadena EGFR-AF LIBERIAN >60 Normal >=60 [facility] Comment on above: Performed By: #### B MP #### [facility] [address] [place] [address] Dr. Germania Cadena EGFR-NON AF LIBERIAN >60 Normal >=60 [facility] Comment on above: Performed By: #### B MP #### [facility] [address] [place] [address] Dr. Germania Cadena Glucose [Mass/Vol] 110 mg/dL Critically high 74-106 T [facility] Comment on above: Performed By: #### B MP #### [facility] [address] [address] [address] Germania Cadena Potassium [Moles/Vol] 4.7 mmol/L Normal 3.5-5.1 [facility] Comment on above: Performed By: #### B MP #### [facility] [address] [address] [address] Germania Cadena Sodium [Moles/Vol] 136 mmol/L Normal 136-145 [facility] Comment on above: Performed By: #### B MP #### [facility] [address] [address] [address] Germania Cadena Urea nitrogen [Mass/Vol] 23.0 mg/dL Critically high 7.0-18.0 [facility] Comment on above: Performed By: #### B MP #### [facility] [address] [address] [address] Germania Cadena Urea nitrogen/Creatinine [Mass ratio] 27.1 mg/mg Normal [facility] Comment on above: Performed By: #### B MP #### [facility] [address] [place] 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 LARGE POLYP OR CYST RIGHT MAXILLARY SINUS. SOFT TISSUE OPACIFICATION OF LEFT MASTOIDS AND LEFT MIDDLE EAR CANAL. 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 COMMENT: Unenhanced images were obtained. There is a large ovoid polyp or cyst within the right maxillary sinus. There is near complete soft tissue opacification of the left maxillary sinus. The right maxillary ostiomeatal complex is aerated, but the left maxillary ostiomeatal complex is soft tissue opacified. There is mucosal thickening involving some of the ethmoid air cells bilaterally and there is minimal mucosal thickening in the inferior portions of the frontal sinuses. The sphenoid sinuses are aerated and appear clear. No bone destruction is noted. The bony nasal septum is midline. The nasal turbinates are unremarkable. There is complete soft tissue opacification of left mastoid antrum and left mastoid air cells, without evidence of bone destruction on this exam. There is complete soft tissue opacification of the left middle ear canal, without evidence of erosion of the left ossicles, within the limitations of this exam. The right mastoids and right middle ear canal are aerated. There are hypertrophic degenerative arthritic changes at the atlantoodontoid articulation. All CT scans at this facility use dose modulation, iterative reconstruction, and/or weight based dosing when appropriate to reduce radiation dose to as low as reasonably achievable. FINAL REPORT Dictated: 12/28/2021 8:29 am Destin Dacosta M.D. Signed (Electronic Signature): 12/28/2021 8:29 am Signed by: Destin Dacosta M.D. Transcribed by: SHAY Technologist: BETTYE Mendez [facility] Coding Summary.on 12-27-2021 Coding Summary. [id number] G h0bWw+PGhlYWQ+WG6ZIYL zK15raBOuvC1SE5xRPK2C PTHMQAXXAO9ZFD2evUF2E FxlS7IspiQz OhnspDMuEQ83EPi1PHM4p PlkUOormJ8rtDIpK5c5Ua QeOS00gC15LHarLLXwFxE 3LjZpbjsgbWFy D6iuWfDmkIGsPjm+PHRhY mxlIHdpZHRoPScxMDAlJy AbyDvwLA4gEm2nDHYkVVV vbGxhcHNlOiBj v3mnOGVcSSgxFV4jjFlcS 6LxfUR2BCEal4i9Pt50lJ I+WPSjVMA2nPviUObxk59 6OvVur7ebHOY7 yPGbGTanAIP6A83jj3L1Q YJoWZYbGYS9oFU1bE9fhA yxnoclS9PzuUUyMnM6FQL 2eXGgfS6opOsk dajlhC0nSft+E84VFH4LY BRCSR0LLmz6B6PxKkmtoA I+ID12IKObEU55tGCxyZB ol4szpZk2MwGq CRWoXMP1dHqcQLvxn6TxR MVlN89vgVAtf1X9FWMmsG hlsCVwIbXfyQD5gQ4mTSm ekdarf4wtysfb Bjpda5guam29eZ81F02rD JpmZIHvBKQ5PTPvWXYxmJ jqos9pwI7ePz4+VYknx5l ep9qarXc9GeSs SCTeacPdtDnaDEL3j5BrF v50O4ZqyNnzu8PhPkc7cw 41qLAnx0M5qYD4GDcuQUM hhQ7dKAfjHqK5 CAAdUdUkyK64lSUaBKcqX j3cqXqxbHxaHN5sJXAssk wyFABqfX3tLYPlcGRnaIo zGT1lZCWqtgos t762ObMsPXJ4DKDwiTGmM 2UcuB2fLsZzXNOsPDVuC4 RbdJKuLByoH461UJilPlS 0IZPqbrDcK2Wu UEBkkDxlBgD6u7B4Xu1Vj 1IvfvsmBVM4SObmXED8Vv U7NqNkRiH0G8DpNnl4VDG jqZwyQB7sG1Et MBHcnhnnmexnsDD7CRVmE LCcfO43kIHnUSnkRv6pm0 Z6v260QUSaRNQelF75Le2 udDogMTBwdCBU nT9zcslow5tezllbNhTxX JDeZHe3EBi0QRRwoZlaFc KqRHG3KcL3TNR1yVBvfW1 fkFytsafpqY0k Oyc+M56maN4wEJT8EKF8w fxtTALeaiTiOK89DP47B8 RyPjwvdGFibGU+PGRpdiB evXelCG5bUaAw w2xmy0IjQHeyG9ViTTWzW NswIfg1UVBtDJD4cBE0vE 7nRADcIHblb5C7zUS2O3G oyxFrki4kl8aw HAHkEAewH79gtPHvk2B1X WDgpXG9SQQrbQyyOgAzkB 93Oyc+LQFgdNjdg0UoAik dp4bkt2ofrQu2 FaZkGSDysxClyOcvALZ3a 1TaMp10M12gFGhjGMJxGG RzZTEzRPYdjKgbax7ssJ5 wIi8+PGNvbCB3 hCI7nH2zBMTpXmE7GPrbM 437LjRbbRKlTdvjn9fif0 hziVi5VoCpLJBcbqPrnFt yJTG8n6PoUq51 B73tPJnvRKRmYWBwYCXtC QMspAarcn6fcV5pNu8+PC 5iw1rjkm31bI66rTT+PHR iOKU3wJhxUShw LITphR0oQJkoMoD7EFCyW tTyiV85jVKzZIbkHq6ttD hksNrePN2aURCuvtqpr63 2RgZzp1mzFBIm hVHmPGwoJQL7Z94ps9O4Z ZAgIFCbNBX7oSL0lN9joC lnbjogbGVmdDsgdmVydGl cNUjjLDdhK304 IHRvcDsnPlBhdGllbnQgT wTyTUm8J1FoSnx0EZXddV gzHP1zhSUmXDxhPp1qpAp vaOqyBX5rXWTi njsmf806TsDuz2glRJCce HYtVZthFLR6H82bp1K0OZ IwRBUzEUD7sFP3cB2lfXu nbjogbGVmdDsg jvNhsTgmRBjpNDisN859O HRvcDsnPkJpcnRoIERhdG V8JV71CZ89bIJoh2Y6tNQ 4V3NeEHCanwda wsjpiOM7SSLeTNSioR43S f5goWetJk5eTPVfPYI4LD YozIEqS1ZnbK7bTdTzHDO hVGBxF6OhoPXm JFggN167ULikXcB2GPMob kFiI0TmFIUibEyeCkE0r9 T8Mo9BL9E5XK21BR06qZA dh7X3xBU9N9Xl EFBzloaezjbyvPP8FFOaB IAekR37Ea8kaMizId5gJK XkMZJ2EHGmpTGhK6YzeQ8 yOiAjMDAwMDAw W4FlzVXhDLxvX323BTrcJ nJ2PPYchyTxB1SzCDLkpR ytZdV4v0P6Ii8TOSs3NK3 3XZ69xGZja9Z0 uIW0B4UhUWTovfvarytre LX1OGFtYPGguC57Ft9byA yuWo0jVPNtPNF5WHTtrOS kQ0YxdB4sQtQa CNAnRTRtQ6NdmAVcGHzwC 083BZwyIoN5DKFtleBeI2 IvHXQmgFjtBtE6d9N3Yl8 SKZFpBJ72SOE3 bFU2NU41IK63Q6DwKtxaz GFibGU+PHRhYmxlIHdpZH RoPScxMDAlJyBzdHlsZT0 hMk9nIRAcDKJg bVklxYTkCxPmp8bbPZJdT WmkPG5kxCkzP6LbvWZ2FO Oql5y8Ox09H14tU0YyuLJ +CZJbwPB9jEE8 iS6kPjNnIiS9JDceY729I aNrbYDjAvqsu2otj0topW x7UqK3OMTijmAboIzvXLF 6w3UkPt18G77b IHdpZHRoPSIxNSUiIHZhb Yyzha2sjI2yQz9+PGNvbC F2jCE7qQ8xCkEcBiW7PPu bA191YdVazOUo Hgmpk2jin8wbjZo2RsNyG MAakaUwySlkZKJ3s6TrHb 66T9LwgUpvg6SbKzu4sw0 2xHJeh0E8oLU3 Y6VtYPYttmeriGBmlFoxH Y5vWHXgwupcJOGikH6iKS GgJ1v6MgXvJoU5PSumK0S fpaW5JSWqzQTj TJckCVY5Y99ro3T3FTQpV EEiNVR8iJB9tY3gpTefno ogbGVmdDsgdmVydGljYWw nDThgN312GTTw iThlYOEaxT8mCVAytJMws HpgXO1iXLYcrndzJiOZGA 8OHW3TPAoINCDARLNUDGJ XHGOUOG80JZ76 pPRsd9T7nSA4I5RsXQQfh lhuoxxdtTP6WGKcOUQkiS 39uGWiQDgyRx3jl0Z8q55 6FFJnXRZsfP19 De4ciXpqZUAlnHGSpA6oh zvfg0eospxjZwTzBHElPQ h7ZDc3MILomQthKaXdMDK 2HiU9CPD5gZLm uL4puWjlgxainR2mGwv+M TEvMjYvMTkzNzwvdGQ+PH IoTYE3wEqvXDbzSIEdqN4 lZSIyD7u2FtPc JvS9HWuiB7YeSQZtmqygZ p80wB7tYqDpQiB6GQowO1 UstsG6DCLisIGhBCekBDM 3A90os7R3XMTi NBAkCOI5nCN0qM9vcAamm jogbGVmdDsgdmVydGljYW ggRKleC053YUNgqSybFrq 9FJajQEInXB67 WV66yRNra2K6xOL4B8GfY WDtkjaybhvowOV5DOJfMA UjrY38uKKnXNqxNk5pb3R 6q440PLNoZDFl zW29Xd3hzJgvCECduKDIv N4vvodeb1nimlrjAeCtYR WxVVe3QLr9SXHfvQwcRiK lMMY3DcT0MGS0 oEHbmT7xvBszgmdpiL7jP yc+RuAeTInfAA90LG39gA Qus8W1qFL5W5NtICCwttn himdtkAP4MASd WONdzC77nRTcOSusGi5zm 4F5p745SPGfKRMjmG79Jk 3kaDwcEZJbhXSTkP8kvvq mo9ttombxVsHi BNBaWEh1TVk1OLOsgUpsO oOyAUU8MdX0QRP5sPQklN 0ugFnqynqytQ5bKym+T3V 9xZF2uUDzgAye dGQ+XB66ee90R4SkYcshP ob1RPPoASX0zWJ0yP0qZN QcHBbvc2F1yVF1M5WvaiG cfu4ur2iyTUEi YSqqD70yrKYpd2J3VUXnj LP9QKWujBpcHbLljH63Aa c+XMHhcAkng3DrTvbnl7r tu6narDi7AjIv JSEhbfErwFyaSDU7i1PpY s41P95fAOfkDGDsHREoRQ TkEWGzgTokwa1fwD5aOq6 +YQOxtXW4zFL9 yB9hDyGeVsS4OLkqB681A yVxcQRvVcvvi9tql8ngtI p0UwIgIPXyjpApwVobRCU 7c3PqGy13Q5Sa jXcqn6EfOjp2oi83bQObz 1K9eVH7P7DzRLKkxxvywS OrjYnpEZ2wUIPqbsdfXOT lpC8xKJElV7z1 HsNuNzP8VSfeN6XpgrS3R ABcyZStXKVvgXGNcJ3dot muf2duxqceHsWjVNKkSIu 9QVl1KXXefZhg MyCbMCE2JgT4YSF4dLWpz L1kcCupvbiqtM1qBik+UG i8e3dxvRXnAN3vzLP2ZZ6 4AU44sFTqm4X5 lOV1L4PgOMXhqqbsdzoyy OM4ASZrQULrkM49Er6kdX hcAf1jRXEqNYR9ITTsbTX xF4PrbH6zYpVk ZWHkZGZsP1VgjKXnCDmfU 493YGgwRmP5XHNckdHyG1 FzUSVkuZpoKsO4e3K0Wa9 TVI23XE70OS55 iTEjr2S9rWN4L4CnHXAdj leqzcyijAN2FCCnRGHujQ 43Yu0bcJmaPo1zBWPmKWS 2DNAmcNHyP6Tl kU1yKhMuRYZkNKMeZ4Afg WKoPLogJ106DXcwLuF0UU NbohEkV4FbRWMsfHvfVcP 3u7P4Zi1JEp38 TN08GP60wKLvv5A1kGY8M 8LbQWEwmxchslzdeLO9GZ FuCQFnqE29Eq5xcJamIk4 tVLXgIAM3YDFo fHRdG9ZctM1iAaCvGEEcV ZGvR7RvyPNuCFfpA750FU dgPlP9BVVtqlSxC9XlSVQ ptRaoYdH6i1F8 Ox5QGUjknid0C6SvTqonv HI+YM66JHTpAW97cOLxcQ Rqe3emvAg5ViBpFMPaWKJ 0lGydKEswy0Zi ZXIt (more content not included)... Normal [facility] Consent for Treatmenton 06-0 Consent for Treatment [id number] .[id number]:127 Normal [facility] Physician Orderon 12-09-2021 Physician Order [id number] .00CD:127 Normal [facility] Physician Orderon 11-22-2021 Physician Order [id number] .00CD:[address] [facility] [address] TEMPORAL BONES WO CONon 0 11-12-2021 CT TEMPORAL BONES WO CON EXAMINATION: CT TEMPORAL BONES WO CON HISTORY: Mixed conductive and sensorineural hearing loss of left ear. COMPARISON: None. TECHNIQUE: CT scan performed through the temporal bones and reconstructed in the axial and coronal planes. Dose reduction techniques were achieved by using automated exposure control and/or adjustment of mA and/or kV according to patient size and/or use of iterative reconstruction technique. FINDINGS: Right mastoid air cells and middle ear are normal in appearance. The right otic capsule is normal in appearance. Facial nerve is normal in course. Vascular anatomy is normal. No evidence of dehiscence. Examination of the left temporal bone demonstrates opacification of the mastoid, mastoid attic, and middle ear. No evidence of erosion of the scutum or lateral semicircular canal. The otic capsule is normal in appearance. Facial nerve is normal in course. Vascular anatomy is normal without dehiscence. Skull base normal in appearance. Opacification of the left maxillary sinus with retention cyst in the right maxillary sinus. The nasopharynx is normal. IMPRESSION: 1. Opacification of the left middle and inner ear without erosion of the semicircular canal or scutum. 2. The right temporal bone is normal in appearance. Electronically authenticated by: Domenic GARVIN Date: 2021-11-12 16:16 Normal [facility] Vital Signs Date Time Vital Sign Value Performing Clinician Faci lity 05-22-2024 11:10040 Body height 157.5 cm Sandra Rae MD Work Phone: [facility] 05-22-2024 11:10-0400 Body mass index (BMI) [Ratio] 31.28 kg/m2 Sandra Rae MD Work Phone: [facility] 05-22-2024 11:10-040 Body weight 77.56 kg Sandra Rae MD Work Phone: [facility] 05-22-2024 11:10-0400 Diastolic blood pressure 60 mm[Hg] Sandra Rae MD Work Phone: [facility] 05-22-2024 11:10-0400 Systolic blood pressure 148 mm[Hg] Sandra Rae MD Work Phone: [facility] Encounters Encounter Date Encounter Type Care Provider Facility Start: 05-27-2024 End: 05-27-2024 Refill Marce Veliz MA [facility] Comment on above: 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) Start: 05-22-2024 End: 05-22-2024 Bamboo flowsheet Sandra Rae MD Work Phone: [facility] Start: 05-22-2024 End: 05-22-2024 Bamboo flowsheet Sandra Rae MD Work Phone: [facility] Start: 05-22-2024 End: 05-22-2024 Office outpatient visit 25 minutes Sandra Rae MD Work Phone: [facility] Comment on above: OME (otitis media wi th effusion), left (Primary Dx); Mixed conductive and sensorineural hearing loss of left ear with restricted hearing of right ear Start: 05-22-2024 End: 05-22-2024 ambulatory SANDRA RAE Not Available Start: 04-10-2024 End: 04-10-2024 ambulatory RUTHIE NARVAEZ Not Available Start: 01-09-2024 End: 01-09-2024 ambulatory SELLERS FAWWAD Not Available Start: 07-06-2023 End: 07-06-2023 ambulatory SELLERS FAWWAD Not Available Start: 07-06-2023 Patient encounter procedure Sandra Rae MD Work Phone: [facility] Start: 11-07-2022 End: 11-08-2022 ambulatory SELLERS H FAWWAD Facility:[facility] Start: 04-01-2022 End: 04-02-2022 ambulatory SELLERS H FAWWAD Facility:[facility] Start: 01-28-2022 End: 01-29-[address] ALEJANDRO EDWARDS Facility:[facility] Start: 01-11-2022 Encounter for preprocedural laboratory examination SANDRA RAE [facility] Start: 01-11-2022 End: 01-11-2022 ambulatory SHAIKH Carmine FAWWAChelsea Facility:[facility] Start: 01-08-2022 End: 01-09-2022 ambulatory SANDRA RAE Facility:[facility] Start: 01-08-2022 End: 01-09-2022 Encounter for preprocedural laboratory examination SANDRA RAE Facility:[facility] Start: 01-06-2022 Encounter for preprocedural cardiovascular examination SANDRA RAE [facility] Start: 01-03-2022 End: 01-04-2022 ambulatory SHAIKH Carmine SIMON Facility:[facility] Start: 12-24-2021 End: 12-24-2021 Patient encounter procedure Sandra Rae [facility] Start: 11-11-2021 End: 11-12-2021 ambulatory SHAIKH Carmine SIMON Facility:[facility] Plan of Treatment Date Care Activity Detail Author Start: 04-04-2025 Urine screening for protein Diabetes: Urine Protein Screening [facility] Start: 10-08-2024 End: 10-08-2024 Patient encounter procedure 10/08/2024 9:00 AM EDT Office Visit [facility] [address] [place] [id number] Ruthie Narvaez NP [address] [place] [id number] [facility] Start: 07-27-2024 Glaucoma screening Diabetes: R etinopathy Screening [facility] Start: 07-09-2024 End: 07-09-2024 Patient encounter procedure 07/09/2024 11:10 AM EST Office Visit [facility] [address] [facility] [address] [place] [address] Sandra Rae MD [address] [facility] [address] [place] [address] [facility] Start: 07-06-2024 Medicare Annual Well ness (AWV) Medicare Annual Wellness (AWV) [facility] Start: 07-06-2024 Pneumococcal Vaccine : 65+ Years (1 of 2 - PCV) Pneumococcal Vaccine: 65+ Years (1 of 2 - PCV) [facility] Comment on above: Postponed from 06/18 (Patient Refused) Start: 05-22-2024 End: 05-22-2024 Patient encounter procedure 05/22/2024 11:10 AM EDT Office Visit [facility] [address] [facility] [address] [place] [phone] Sandra Rae MD [address] [facility] [address] [place] [address] Arrived [facility] Comment on above: Arrived Start: 03-24-2024 Influenza vaccination Influenza Vacc ine (#1) [facility] Start: 10-09-2023 Hemoglobin A1c measurement Diabetes: Hemoglobin A1C [facility] Payers Date Payer Category Payer Medicare (Managed Care) [facility] [id number] 2020 Unknown [id number] 1957 Medicare [id number] 1937 Unknown [id number] 593 1937 Unknown [id number] [id number]. 593 1937 Unknown [id number] [id number]. 593 1937 Unknown [id number] [id number]. 593 1937 Unknown [id number] [id number]. 593 1937 Unknown [id number] [id number]. 593 1937 Unknown [id number] [id number]. 593 1937 Unknown [id number] [id number]. 1259 1937 Unknown [id number] [id number]. 1259 1937 Unknown [id number] [id number]. 1259 1937 Unknown [id number] [id number]. 1259 Social History Date Type Detail Facility Tobacco smoking status Never smoker [facility] Start: 07-06-2023 End: 04-10-2024 Sex Assigned At Female [facility] Start: 01-09-2024 Tobacco smoking status KSIS Never smoked tobacco [facility] Start: 01-09-2024 Tobacco use and exposure Smokeless tobacco non-user [facility] Start: 04-10-2024 End: 05-22-2024 Alcoholic beverage intake Lifetime non-drinker (finding) [facility] Start: 07-06-2023 End: 04-10-2024 History of Social function [facility] Within the last year , have you been afraid of your partner or ex-partner? No [facility] Are you now , , , , never or living with a partner? [facility] How often to you hav e a drink containing alcohol? Never [facility] How many standard drinks containing alcohol do you have on a typical day? Patient does not drink [facility] Do you feel stress - tense, restless, nervous, or anxious, or unable to sleep at night because your mind is troubled all the time - these days [OSQ] Not at all [facility] (I/We) worried whether (my/our) food would run out before (I/we) got money to buy more. Never true [facility] Start: 06-23-2023 Alcohol Comment caffeine: 1-2 cups per day [facility] Start: 1935 Sex assigned at Not on file [facility] NEGATED: Highlighted rowStart: NINF History of tobacco use Passive smoker [facility] Clinical Notes 01-11-2022 to 05-27-2024 Telephone Encounter - Marce Veliz MA - 05/27/2024 10:30 AM ESTTelephone Encounter - Marce Veliz MA - 05/27/2024 10:30 AM Manuel Rae MD - 05/22/2024 11:10 AM EDT Note Date & Type Note Facility 05-27-2024 Telephone encounter Note Pt had script for 5 days worth requesting the 90 day script like the one that Dr Simon would send in. [facility] 05-27-2024 Miscellaneous Notes Pt had script for 5 days worth requesting the 90 day script like the one that Dr Simon would send in. documented in this encounter [facility] 05-22-2024 History of Present illness Narrative Subjective Patient ID: Lise Sharp is a 88 y.o. female who presents for Ear Problem (Tube check last seen 2021. BMT 01/19/22.) Review of Systems All other systems reviewed and are negative. Family History Problem Relation Name Age of Onset Heart disease Mother Heart disease Father Heart disease Sister Heart disease Son passed ; after 2 heart surgeries Active Ambulatory Problems Diagnosis Date Noted Type 2 diabetes mellitus with diabetic polyneuropathy, 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/HCC) 07/06/2023 Primary hypertension (CMS/HCC) 07/06/2023 Other hyperlipidemia (CMS/HCC) 07/06/2023 Hypothyroid (CMS/HCC) 07/06/2023 Recurrent major depressive disorder, in full remission (CMS/HCC) 07/06/2023 Chronic knee pain after total replacement of both knee joints 07/06/2023 Encounter for Medicare annual wellness exam 07/06/2023 Exudative age-related macular degeneration, bilateral, with active choroidal neovascularization (CMS/HCC) 07/08/2023 Essential (primary) hypertension (CMS/HCC) 01/09/2024 Hypothyroidism, unspecified ([facility]/HCC) 01/09/2024 Type 2 diabetes mellitus without complications ([facility]) 01/09/2024 Chronic allergic rhinitis 01/09/2024 Resolved Ambulatory Problems Diagnosis Date Noted No Resolved Ambulatory Problems Past Medical History: Diagnosis Date Allergic rhinitis COVID-19 05/2021 Decreased hearing Depression ([facility]/HCC) Diabetes mellitus, type 2 (CMS/HCC) Dyslipidemia ([facility]/HCC) Gout HTN (hypertension) ([facility]) Intermittent palpitations Mitral late systolic murmur Osteoarthritis Osteoporosis (CMS/HCC) Thyroid disease (CMS/HCC) Ulnar nerve impingement Past Surgical History: Procedure Laterality Date APPENDECTOMY CARPAL TUNNEL RELEASE CATARACT EXTRACTION CHOLECYSTECTOMY JOINT REPLACEMENT Bilateral 2002 Knee Replacements, Dr. Lam SHOULDER ARTHROSCOPY Left TOTAL HIP ARTHROPLASTY Right 2008 Dr. Spangler TYMPANOSTOMY TUBE PLACEMENT Left 01/11/2022 Timmis No Known Allergies Current Outpatient Medications on File Prior to Visit Medication Sig Dispense Refill amLODIPine (Norvasc) 10 MG tablet Take 1 tablet (10 mg) by mouth Daily 90 tablet 1 carvedilol (Coreg) 12.5 MG tablet Take 1 tablet (12.5 mg) by mouth every 12 (twelve) hours 180 tablet 1 fexofenadine (Tiana) 180 MG tablet Take 1 tablet (180 mg) by mouth Daily as needed (Allergies) 90 tablet 1 furosemide (Lasix) 20 MG tablet Take 1 tablet (20 mg) by mouth Daily 90 tablet 1 gabapentin (Neurontin) 100 MG capsule TAKE 1 CAPSULE BY MOUTH IN THE MORNING and ONE CAPSULE IN THE EVENING and ONE CAPSULE AT BEDTIME 270 capsule 1 levothyroxine (Synthroid, Levoxyl) 75 MCG tablet Take 1 tablet (75 mcg) by mouth Daily 90 tablet 1 losartan (Cozaar) 100 MG tablet Take 1 tablet (100 mg) by mouth Daily 90 tablet 1 metFORMIN (Glucophage) 500 MG tablet Take 1 tablet (500 mg) by mouth in the morning and 1 tablet (500 mg) before bedtime. 180 tablet 1 sertraline (Zoloft) 50 MG tablet Take 1.5 tablets (75 mg) by mouth Daily 135 tablet 1 simvastatin (Zocor) 20 MG tablet Take 1 tablet (20 mg) by mouth at bedtime 90 tablet 1 [DISCONTINUED] fluticasone (Cutivate) 0.05 % lotion Apply 1 application topically in the morning. No current facility-administered medications on file prior to visit. Objective Last Recorded Vitals Vitals: 05/22/24 1110 BP: 148/60 ENT Physical Exam Ear Ear comments: LT serous effusion Respiratory Inspection: breathing unlabored; normal breathing rate; Auscultation: breath sounds are clear; Cardiovascular Inspection: extremities are warm and well perfused; no peripheral edema present; Auscultation: regular rate and rhythm; Assessment/Plan Diagnoses and all orders for this visit: OME (otitis media with effusion), left Mixed conductive and sensorineural hearing loss of left ear with restricted hearing of right ear Left HL recurred once tube out. Proceed with LT t-tube documented in this encounter [facility] 11-07-2022 Note PROCEDURE: XR HIP RT 2 3V WO PELVIS DATE: 11/07/2022 10:50 AM CDT COMPARISONS: 01/28/2022 CLINICAL INDICATION: Pain in right hip joint Hip replacement years ago. FINDINGS: There is no evidence of fractures or other acute osseous abnormalities. 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 Prosthetic components are in good position and alignment, stable from previous exam. On lateral view, hypertrophic osseous changes are noted superior lateral aspect proximal femur. These are stable from previous exam. IMPRESSION: Stable appearing prosthetic right hip when compared to 01/28/2022. [place] osseous structures show no acute abnormalities. . Electronically authenticated by: ERNESTO MEDRANO Date: 2022-11-07 12:22 [facility] 01-28-2022 Note PROCEDURE: XR KNEE R T 3V HISTORY: Pain of right knee joint ; chronic lumbar pain, new hip and knee pain COMPARISON: None. FINDINGS: BONES:Total knee replacement without evidence of hardware fracture or loosening. No bone fracture dislocation. SOFT TISSUES:No visible soft tissue swelling. EFFUSION:Large joint effusion. OTHER: Negative. IMPRESSION: 1. Right knee replacement without visible hardware failure. 2. No acute bone abnormality. 3. Moderate-large joint effusion. Electronically authenticated by: ALEJANDRO EDWARDS Date: 2022-01-28 18:09 [facility] 01-28-2022 Note PROCEDURE: XR HIP RT 2 3V W PELVIS HISTORY: Pain in right hip joint ; chronic lumbar pain increasing in severity COMPARISON: None. FINDINGS: BONES:Total right hip replacement without evidence of hardware fracture or loosening. No bone fracture dislocation. Moderate degenerative changes of left hip joint. Mild degenerative change of the sacroiliac joints. SOFT TISSUES:No visible soft tissue swelling. EFFUSION:None visible. OTHER: Negative. IMPRESSION: 1. Right hip replacement without is of hardware failure. 2. No appreciable acute bone abnormality. 3. Multifocal mild to moderate degenerative changes. Electronically authenticated by: ALEJANDRO EDWARDS Date: 2022-01-28 18:08 [facility] 01-11-2022 Note OPERATIVE NOTE OPERATION DATE: 01/11/2022 PRIMARY CARE PHYSICIAN: Dr. Sotomayor SURGEON: Sandra Rae M.D. PREOPERATIVE DIAGNOSIS: Left eustachian tube dysfunction. POSTOPERATIVE DIAGNOSIS: Left eustachian tube dysfunction. PROCEDURE: Left myringotomy and tube with microdissection, placement of a T-tube. ANESTHESIA: General LMA. COMPLICATIONS: None. FINDINGS: Left serous effusion. INDICATIONS: This 86-year-old woman presented with otitis media effusion, unresponsive to aggressive medical management. PROCEDURE: Patient identified in the holding area and taken back to the OR where she was placed in the supine position. After induction of general anesthesia by LMA, the left ear was approached with the otomicroscope. An anterior radial myringotomy was performed. Serous effusion was suctioned from the ear and a modified Adan's T-tube was folded, inserted into the ear and opened in the middle ear using microdissection. The patient was then awakened and taken to the recovery room in good condition. [facility] Signed and Approved by: DR SANDRA RAE 01/18/2022 08:11:00 [facility] Evaluation + Plan note No data available for this section [facility] Evaluation note Diagnosis Type 2 diabetes mellitus with diabetic polyneuropathy, 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/HCC)- Primary Primary hypertension (CMS/HCC) Unspecified essential hypertension Other hyperlipidemia (CMS/HCC) Hypothyroidism, unspecified type (CMS/HCC) Encounter for Medicare annual wellness exam Chronic knee pain after total replacement of both knee joints Chronic allergic rhinitis Recurrent major depressive disorder, in full remission (CMS/HCC) Chronic knee pain after total replacement of both knee joints- Primary Essential (primary) hypertension (CMS/HCC) Unspecified essential hypertension Hypothyroidism, unspecified (CMS/HCC) Type 2 diabetes mellitus without complications (CMS/HCC) Chronic allergic rhinitis Recurrent major depressive disorder, in full remission (CMS/HCC) Other hyperlipidemia (CMS/HCC) Type 2 diabetes mellitus with diabetic polyneuropathy, 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/HCC)- Primary Primary hypertension (CMS/HCC) Unspecified essential hypertension Other hyperlipidemia (CMS/HCC) Recurrent major depressive disorder, in full remission ([facility]/HCC) Chronic knee pain after total replacement of both knee joints OME (otitis media with effusion), left- Primary Mixed conductive and sensorineural hearing loss of left ear with restricted hearing of right ear documented in this encounter [facility] HealthcareEvaluation note* Diagnosis Type 2 diabetes mellitus with diabetic polyneuropathy, without long-term current use of insulin ([facility]/HCC)- Primary Primary hypertension (CMS/HCC) Unspecified essential hypertension Other hyperlipidemia ([facility]/HCC) Hypothyroidism, unspecified type ([facility]) Encounter for Medicare annual wellness exam Chronic knee pain after total replacement of both knee joints Chronic allergic rhinitis Recurrent major depressive disorder, in full remission ([facility]/HCC) Chronic knee pain after total replacement of both knee joints- Primary Essential (primary) hypertension (CMS/HCC) Unspecified essential hypertension Hypothyroidism, unspecified (CMS/HCC) Type 2 diabetes mellitus without complications (CMS/HCC) Chronic allergic rhinitis Recurrent major depressive disorder, in full remission ([facility]/HCC) Other hyperlipidemia ([facility]/HCC) Type 2 diabetes mellitus with diabetic polyneuropathy, without long-term current use of insulin ([facility]/HCC)- Primary Primary hypertension (CMS/HCC) Unspecified essential hypertension Other hyperlipidemia (CMS/HCC) Recurrent major depressive disorder, in full remission (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- Primary documented in this encounter [facility] HealthcareHospital Discharge instructions No data available for this section [facility] Summary Purpose Family History No Family History Records FoundNo Family History Records FoundNo Family History Records Found Advance Directives No Advanced Directives Records FoundNo Advanced Directives Records FoundNo Advanced Directives Records Found Additional Source Comments INFORMATION SOURCE (unrecogn ized section and content) DATE CREATED AUTHOR 12/28/2021 [facility] DATE CREATED AUTHOR AUTHOR'S ORGANIZ ATION 11/10/2022 [facility] DATE CREATED AUTHOR AUTHOR'S ORGANIZ ATION 05/24/2024 [facility] dical Specialists EPIC Care Teams (unrecognized sec tion and content) Well Drill Operator Relationship Specialty Start Date End Date Kanwal Bo MD [address] [facility] [place] [address] PCP - Devoted 07/24/22 UnallocatYojana huerta MD [address] [facility] [place] [place] [address] PCP - General Family Medicine 05/08/24 Ruthie Narvaez NP [address] [place] [address] Nurse Practitioner Family Medicine 03/04/24 Well Drill Operator Relationship Specialty Start Date End Date Kanwal Bo MD [address] [facility] [place] [address] PCP - Devoted 07/24/22 UdaycatYojana huerta MD [address] [place] [address] PCP - General Family Medicine 05/08/24 Ruthie Narvaez NP [address] [place] [address] Nurse Practitioner Family Medicine 03/04/24 Well Drill Operator Relationship Specialty Start Date End Date Kanwal Bo MD [address] [facility] [place] [address] PCP - Devoted 07/24/22 Vickey English MD [address] [place] [address] PCP - General Family Medicine 05/23/24 Ruthie Narvaez NP [address] [place], [place] [address] [address] Nurse Practitioner Family Medicine 03/04/24 Reason for Visit (unrecogniz ed section and content) Reason Comments Ear Problem Tube check last seen 2021. BMT 01/19/22. Reason Onset Date Comments Med Refill 05/27/2024 FOR RECORDS PERTAINING TO PATIENTS WHO ARE OR HAVE BEEN ENROLLED IN A CHEMICAL DEPENDENCY/SUBSTANCEABUSE PROGRAM, SOME INFORMATION MAY BE OMITTED. This clinical summary was aggregated from multiple sources. Caution should be exercised in using it in the provision of clinical care. This summary normalizes information from multiple sources, and as a consequence, information in this document may materially change the coding, format and clinical context of patient data. In addition, data may be omitted in some cases. CLINICAL DECISIONS SHOULD BE BASED ON THE PRIMARY CLINICAL RECORDS. [employer] provides no warranty or guarantee of the accuracy or completeness of information in this document.
--- NOTE | 2024-05-31 11:14 | ECG_ITS ---
[facility] [place] Test Date: 2024-05-31 Pat Name: NETO ROUSE Department: Room: - Gender: Female [employer] Server: : [id number] Requested By: ESTEBAN RAE Order Number: [id number] Reading MD: DEBORAH BOGGS Measurements Intervals [place] Rate: 63 P: 19 MD: 203 QRS: 64 QRSD: 86 T: 51 QT: 410 QTc: 421 Interpretive Statements SINUS RHYTHM WITH OCCASIONAL SUPRAVENTRICULAR PREMATURE COMPLEXES Compared to ECG 01/03/2022 14:40:54 Myocardial infarct finding no longer present Electronically Signed On 06-01-2024 6:27:03 EST by DEBORAH BOGGS
[2024-05-31 12:14] LABS: Anion Gap 13.5; Carbon Dioxide 26.6 mmol/L (21.0-32.0); Chloride 100 mmol/L (98-107); Glucose 121 mg/dL (74-106); Potassium 5.1 mmol/L (3.5-5.1); Sodium 135 mmol/L (136-145)
[2024-05-31 12:15] LABS: BUN Creatinine Ratio 19.6; Estimated GFR (African America 56 (>=60 mL/min/1.73m^2); Estimated GFR (Non-African Ame 46 (>=60 mL/min/1.73m^2)
[2024-05-31 12:26] LABS: Basophils Absolute Auto 0.1 10^3/uL (0.0-0.1); Basophils Percent Auto 1.2 % (0.2-2.0); Eosinophils Absolute Auto 0.3 10^3/uL (0.0-0.7); Eosinophils Percent Auto 4.2 % (0.9-7.0); Hematocrit 34.8 % (36.0-48.0); Hemoglobin 11.8 g/dL (12.0-16.0); Immature Granulocytes Abs Auto 0.01 10^3/uL (0.00-0.03); Immature Granulocytes Pct Auto 0.2 % (0.0-0.5); Lymphocytes Absolute Auto 1.9 10^3/uL (1.2-3.8); Lymphocytes Percent Auto 32.8 % (20.5-60.0); Mean Corpuscular HGB Conc 33.9 g/dL (29.9-35.2); Mean Corpuscular Hemoglobin 31.3 pg (26.7-34.0); Mean Corpuscular Volume 92.3 fL (81.0-99.0); Mean Platelet Volume 10.7 fL (9.5-13.5); Monocytes Absolute Auto 0.5 10^3/uL (0.3-0.8); Monocytes Percent Auto 7.8 % (1.7-12.0); Neutrophils Absolute Auto 3.2 10^3/uL (1.4-6.5); Neutrophils Percent Auto 53.8 % (43.0-75.0); Platelet Count 216 10^3/uL (150-450); Red Blood Count 3.77 10^6/uL (4.20-5.40); Red Cell Distribution Width 12.2 % (11.0-15.0); White Blood Count 5.9 10^3/uL (4.0-11.0)
== END 2024-05-31 10:29 | disposition home or self-care (01) ==
LOC: PST 10:28
PROVIDERS: Visit Provider Otolaryngology
DX: Z01.810 Encounter for preprocedural cardiovascular examination (principal); Z01.812 Encounter for preprocedural laboratory examination; H65.92 Unspecified nonsuppurative otitis media, left ear
CPT/HCPCS: 80048; 85025; 93005

== ENCOUNTER 2024-06-06 09:17 | Day surgery (SDC) | payer OTHER, SELFPAY ==
[2024-05-31 11:56] VITALS: BP 145/69; PULSE 63; TEMP 36.4; O2SAT 100; BMI 31.5
[2024-06-06] VITALS (11 sets, daily range): BP systolic 118–164; BP diastolic 56–75; PULSE 66–73; TEMP 36.2–36.6; O2SAT 98–100; BMI 31.0
--- NOTE | 2024-06-06 | OP_ITS ---
OPERATION DATE: 06/06/2024 SURGEON: Sandra Tobar M.D. PREOPERATIVE DIAGNOSIS: Left eustachian tube dysfunction. POSTOPERATIVE DIAGNOSIS: Left eustachian tube dysfunction. PROCEDURE: Left myringotomy and tube with microdissection, placement of a T- tube. ANESTHESIA: MAC. COMPLICATIONS: None. FINDINGS: Left serous effusion. INDICATIONS: This 88-year-old woman presented with development of mixed hearing loss in the left ear due to serous effusion, soon after her previously placed tympanostomy tube extruded. PROCEDURE: Patient identified in the holding area and taken back to the OR where she was placed in the supine position. After induction of MAC anesthesia, the left ear was approached with the otomicroscope and an anterior radial myringotomy was performed. A modified Adan?s T-tube was folded, inserted through the myringotomy and opened in the middle ear using microdissection. The patient was then awakened and taken to the recovery room in good condition. DAJA
--- OUTSIDE RECORDS SUMMARY | 2024-06-06 09:27 | XMS_ITS | CCD ---
Author Organization [facility] Informat ion [facility] Care Team Providers Care Hand Alterations Seamstress Name Role Phone SHAIKH SIMON Primary Care [...] MEDRANO Consulting Unavailable Kanwal Bo MD Unavailable [phone] ZELAYA, Ruthie Unavailable Unallocated Yojana VEGAS [facility] SHAIKH SIMON Attending Unavailable RUTHIE NARVAEZ Attending UnavailSHAIKH Gonsalves Attending Unavailable SANDRA RAE Attending Unavailable Vickey English MD Primary Care Provider [phone] Medications Current Medications Medication Drug Class(es) Dates Sig (Normalized) Sig (Original) acetaminophen 325 mg / oxyCODONE hydrochloride 5 mg oral tablet (3 sources) Opioid Agonist Start: 05-27-2024 take 1 [...] Discontinued (Reorder) amLODIPine 10 mg oral tablet (5 sources) Dihydropyridine Calcium Channel Fly Start: 01-09-2024 take 1 tablet by mouth once daily amLODIPine (Norvasc) 10 MG tablet Indications: Essential (primary) hypertension (CMS/HCC) Take 1 tablet (10 mg) by mouth Daily 90 tablet 1 01/09/2024 Active carvedilol 12.5 mg oral tablet (5 sources) alpha-Adrenergic Fly, beta-Adrenergic Fly Start: 01-09-2024 take 1 tablet by mouth once carvedilol (Coreg) 12.5 MG tablet Indications: Essential (primary) hypertension (CMS/HCC) Take 1 tablet (12.5 mg) by mouth every 12 (twelve) hours 180 tablet 1 01/09/2024 Active fexofenadine hydrochloride 180 mg oral tablet (5 sources) Histamine-1 Receptor Antagonist Start: 01-09-2024 End: 07-07-2024 take 1 tablet by mouth once daily as needed fexofenadine (Taina) 180 MG tablet Indications: Chronic allergic rhinitis Take 1 tablet (180 mg) by mouth Daily as needed (Allergies) 90 tablet 1 01/09/2024 07/07/2024 Active fluticasone propionate 0.5 mg/ml topical lotion (3 sources) Corticosteroid End: 05-22-2024 fluticasone (Cutivate) 0.05 % lotion Apply 1 application topically in the morning. 05/22/2024 Discontinued (Therapy completed) furosemide 20 mg oral tablet (5 sources) Loop Diuretic Start: 01-09-2024 End: 07-07-2024 take 1 tablet by mouth once daily furosemide (Lasix) 20 MG tablet Indications: Essential (primary) hypertension (CMS/HCC) Take 1 tablet (20 mg) by mouth Daily 90 tablet 1 01/09/2024 07/07/2024 Active gabapentin 100 mg oral capsule (5 sources) Anti-epileptic Agent Start: 10-25-2023 take 1 [...] Active levothyroxine sodium 0.075 mg oral tablet (5 sources) l-Thyroxine Start: 01-09-2024 take 1 tablet by mouth once daily levothyroxine (Synthroid, Levoxyl) 75 MCG tablet Indications: Hypothyroidism, unspecified (CMS/HCC) Take 1 tablet (75 mcg) by mouth Daily 90 tablet 1 01/09/2024 Active losartan potassium 100 mg oral tablet (5 sources) Angiotensin 2 Receptor Fly Start: 01-09-2024 take 1 tablet by mouth once daily losartan (Cozaar) 100 MG tablet Indications: Essential (primary) hypertension (CMS/HCC) Take 1 tablet (100 mg) by mouth Daily 90 tablet 1 01/09/2024 Active metFORMIN hydrochloride 500 mg oral tablet (5 sources) Biguanide Start: 01-09-2024 take 1 tablet by mouth in the morning metFORMIN (Glucophage) 500 MG tablet Indications: Type 2 diabetes mellitus without complications (CMS/HCC) Take 1 tablet (500 mg) by mouth in the morning and 1 tablet (500 mg) before bedtime. 180 tablet 1 01/09/2024 Active sertraline 50 mg oral tablet (5 sources) Serotonin Reuptake Inhibitor Start: 01-09-2024 End: 07-07-2024 take 1.5 tablets by mouth once daily sertraline (Zoloft) 50 MG tablet Indications: Recurrent major depressive disorder, in full remission (CMS/HCC) Take 1.5 tablets (75 mg) by mouth Daily 135 tablet 1 01/09/2024 07/07/2024 Active simvastatin 20 mg oral tablet (5 sources) HMG-CoA Reductase Inhibitor Start: 01-09-2024 End: 07-07-2024 take 1 tablet by mouth at bedtime simvastatin (Zocor) 20 MG tablet Indications: Other hyperlipidemia (CMS/HCC) Take 1 tablet (20 mg) by mouth at bedtime 90 tablet 1 01/09/2024 07/07/2024 Active Problems Active Problems Problem Classification Problem Date Documented Date Episodic/Chronic Diabetes mellitus with complications (5 sources) Polyneuropathy due to type 2 diabetes mellitus; Translations: [Type 2 diabetes mellitus with diabetic polyneuropathy] Onset: 07-06-2023 07-06-2023 Chronic Diabetes mellitus without complication (10 sources) Type 2 diabetes mellitus without complications; Translations: [Type 2 diabetes mellitus without complication] Onset: 04-01-2022 Chronic Disorders of lipid metabolism (6 sources) Hyperlipidemia, unspecified; Translations: [Hyperlipidemia] Onset: 01-12-2022 07-08-2023 Chronic Essential hypertension (11 sources) Essential (primary) hypertension; Translations: [Essential hypertension] Onset: 11-10-2022 07-06-2023 Chronic Gout and other crystal arthropathies (1 source) Gout, unspecified; Translations: [GOUT UNSPECIFIED] Onset: 01-12-2022 Chronic Mood disorders (6 sources) Major depressive disorder, single episode, unspecified; [...] IN RIGHT HIP] Onset: 02-01-2022 Episodic Other upper respiratory disease (5 sources) Allergic rhinitis; Translations: [Allergic rhinitis, unspecified] Onset: 01-09-2024 01-09-2024 Chronic Other upper respiratory infections (1 source) Chronic maxillary sinusitis; Translations: [CHRONIC MAXILLARY SINUSITIS] Onset: 01-12-2022 Chronic Otitis media and related conditions (7 sources) Unspecified nonsuppurative otitis media, left ear; Translations: [Other specified disorders of Eustachian tube, left ear] Onset: 01-11-2022 Episodic Retinal detachments; defects; vascular occlusion; and retinopathy (5 sources) Exudative age-related macular degeneration; Translations: [Exudative age-related macular degeneration, bilateral, with active choroidal neovascularization] Onset: 07-08-2023 07-08-2023 Chronic Thyroid disorders (11 sources) Hypothyroidism, unspecified; Translations: [Hypothyroidism] Onset: 11-10-2022 [...] 01-06-2022 Episodic Other aftercare (1 source) Other local company intermodal truck driver (current) drug therapy; Translations: [OTH BANANA RIPENING ROOM SUPERVISOR CURRENT DRUG THERAPY] Onset: 01-06-2022 Episodic Other non-traumatic joint disorders (1 source) Pain in right knee; Translations: [PAIN IN RIGHT KNEE] Onset: 02-01-2022 Episodic Other non-traumatic joint disorders (6 sources) 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 Calcium [Mass/Vol] 10 mg/dL 8.5 - 10. 1 mg/dL [facility] Chloride [Moles/Vol] 100 mmol/L 98 - 10 7 mmol/L [facility] CO2 [Moles/Vol] 26.6 mmol/L 21.0 - 32.0 mmol/L [facility] Creatinine [Mass/Vol] 1.12 mg/dL High 0.55 - 1.02 mg/dL [facility] GFR/1.73 sq M.predicted CKD-EPI (S/P/Bld) [Vol rate/Area] 56 Low >=60 mL/min/1.73m 2 [facility] Glucose [Mass/Vol] 121 mg/dL High 74 - 106 mg/dL NO [facility] Interpretation and review of laboratory results Abnormal [facility] Potassium [Moles/Vol] 5.1 mmol/L 3.5 - 5.1 mmol/L [facility] Sodium [Moles/Vol] 135 mmol/L Low 136 - 145 mmol/L [facility] TBH EGFR-NON AF SCOTTISH 46 Low >=60 mL/min/1.73m 2 [facility] Urea nitrogen [Mass/Vol] 22 mg/dL High 7.0 - 18.0 mg/dL [facility] Urea nitrogen/Creatinine [Mass ratio] 19.6 mg/mg [facility] e CBC W MANUAL DIFFon 11-08-19 23 ATYPICAL LYMPH # Normal [facility] Comment on above: Performed By: #### P OCGLUC #### [facility] [address] [place] [address] Dr. Germania Cadena ATYPICAL LYMPH % Normal [facility] Comment on above: Performed By: #### P OCGLUC #### [facility] [address] [place] [address] Dr. Germania Cadena BAND # 0.0 103/ul Normal 0.0-0.3 [facility] Comment on above: Performed By: #### P OCGLUC #### [facility] [address] [place] [address] Dr. Germania Cadena BAND % 0 % Normal 0-5 [facility] Comment on above: Performed By: #### P OCGLUC #### [facility] [address] [place] [address] Dr. Germania Cadena BASOM # 0.00 103/ul Normal 0.00-0.10 [facility] Comment on above: Performed By: #### P OCGLUC #### [facility] [address] [place] [address] Dr. Germania Cadena BASOM % 0.0 % Critically low 0.2-2.0 [facility] Comment on above: Performed By: #### P OCGLUC #### [facility] [address] [place] [address] Dr. Germania Cadena BLAST # Normal [facility] Comment on above: Performed By: #### P OCGLUC #### [facility] [address] [place] [address] Dr. Germania Cadena BLAST % Normal [facility] Comment on above: Performed By: #### P OCGLUC #### [facility] [address] [address] [address] Germania Cadena CORRECTED WBC Normal 4.0-11.0 [facility] Comment on above: Performed By: #### P OCGLUC #### [facility] [address] [address] [address] Germania Cadena EOS # 0.25 103/ul Normal 0.00-0.70 [facility] Comment on above: Performed By: #### P OCGLUC #### [facility] [address] [address] [address] Germania Cadena EOS% 4.0 % Normal 0.9-7.0 [facility] Comment on above: Performed By: #### P OCGLUC #### [facility] [address] [place] [address] Dr. Germania Cadena HCT 34.6 % Critically low 36.0-48.0 [facility] Comment on above: Performed By: #### P OCGLUC #### [facility] [address] [address] [address] Germania Cadena HGB 11.5 g/dl Critically low 12.0-16.0 [facility] Comment on above: Performed By: #### P OCGLUC #### [facility] [address] [address] [address] Germania Cadena LYMPHM # 1.24 103/ul Normal 1.20-3.80 [facility] Comment on above: Performed By: #### P OCGLUC #### [facility] [address] [address] [address] Germania Cadena LYMPHM% 20.0 % Critically low 20.5-60.0 [facility] Comment on above: Performed By: #### P OCGLUC #### [facility] [address] [address] [address] Germania Cadena MCH 30.4 pg Normal 26.7-34.0 [facility] Comment on above: Performed By: #### P OCGLUC #### [facility] [address] [address] [address] Germania Cadena MCHC 33.2 g/dl Normal 29.9-35.2 [facility] Comment on above: Performed By: #### P OCGLUC #### [facility] [address] [address] [address] Germania Cdaena MCV 91.5 fL Normal 81.0-99.0 [facility] Comment on above: Performed By: #### P OCGLUC #### [facility] [address] [address] [address] Germania Cadena METAMYELOCYTE # Normal [facility] Comment on above: Performed By: #### P OCGLUC #### [facility] [address] [address] [address] Germania Cadena METAMYELOCYTE % Normal [facility] Comment on above: Performed By: #### P OCGLUC #### [facility] [address] [place] [address] Dr. Germania Cadena MONOM# 0.25 103/ul Critically low 0.30-0.80 [facility] Comment on above: Performed By: #### P OCGLUC #### [facility] [address] [place] [address] Dr. Germania Cadena MONOM% 4.0 % Normal 1.7-12.0 [facility] Comment on above: Performed By: #### P OCGLUC #### [facility] [address] [address] [address] Germania Cadena MPV 9.9 fL Normal 9.5-13.5 [facility] Comment on above: Performed By: #### P OCGLUC #### [facility] [address] [address] [address] Germania Cadena MYELOCYTE # Normal [facility] Comment on above: Performed By: #### P OCGLUC #### [facility] [address] [place] [address] Dr. Germania Cadena MYELOCYTE % Normal [facility] Comment on above: Performed By: #### P OCGLUC #### [facility] [address] [address] [address] Germania Cadena NRBC Normal [facility] Comment on above: Performed By: #### P OCGLUC #### [facility] [address] [address] [address] Germania Cadena PLT 211 103/ul Normal 150-450 [facility] Comment on above: Performed By: #### P OCGLUC #### [facility] [address] [address] [address] Germania Cadena RBC 3.78 106/ul Critically low 4.20-5.40 [facility] Comment on above: Performed By: #### P OCGLUC #### [facility] [address] [address] [address] Germania Cadena RDW 12.6 % Normal 11.0-15.0 [facility] Comment on above: Performed By: #### P OCGLUC #### [facility] [address] [address] [address] Germania Cadena SEG # 4.46 103/ul Normal 1.40-6.50 [facility] Comment on above: Performed By: #### P OCGLUC #### [facility] [address] [address] [address] Germania Cadena SEG % 72.0 % Normal 43.0-75.0 [facility] Comment on above: Performed By: #### P OCGLUC #### [facility] [address] [address] [address] Germania Cadena WBC 6.2 103/ul Normal 4.0-11.0 [facility] Comment on above: Performed By: #### P OCGLUC #### [facility] [address] [address] [address] Germania Cadena GLYCOHEMOGLOBIN A1Con 2022 ADA RECOMMENDATION SEE BELOW Normal [facility] Comment on above: Result Comment: ADA RECOMMENDED LIMIT 4.0 - 6.0 ADA THERAPEUTIC TARGET < 7.0 ACTION SUGGESTED > 7.0 Performed By: #### A 1C #### [facility] [address] [address] [address] Germania Cadena Glucose [Mass/Vol] 114 mg/dL Normal [facility] Comment on above: Performed By: #### A 1C #### [facility] [address] [place] [address] Dr. Germania Cadena HbA1c (Bld) [Mass fraction] 5.6 % Normal 4.5-6.2 [facility] Comment on above: Performed By: #### A 1C #### [facility] [address] [place] [address] Dr. Germania Cadena PROF 14(COMP METB)on 023 Albumin [Mass/Vol] 3.3 g/dL Critically low 3.4-5.0 [facility] Comment on above: Performed By: #### P OCGLUC #### [facility] [address] [place] [address] Dr. Germania Cadena Albumin/Globulin [Mass ratio] 0.9 {ratio} Normal [facility] Comment on above: Performed By: #### P OCGLUC #### [facility] [address] [place] [address] Dr. Germania Cadena ALP [Catalytic activity/Vol] 91 U/L Normal 46-116 [facility] Comment on above: Performed By: #### P OCGLUC #### [facility] [address] [place] [address] Dr. Germania Cadena ALT [Catalytic activity/Vol] 40 U/L Normal 14-59 [facility] Comment on above: Performed By: #### P OCGLUC #### [facility] [address] [place] [address] Dr. Germania Cadena Anion gap [Moles/Vol] 11.1 mmol/L Normal [facility] Comment on above: Performed By: #### P OCGLUC #### [facility] [address] [place] [address] Dr. Germania Cadena AST [Catalytic activity/Vol] 22 U/L Normal 15-37 [facility] Comment on above: Performed By: #### P OCGLUC #### [facility] [address] [place] [address] Dr. Germania Cadena Bilirubin [Mass/Vol] 0.2 mg/dL Normal 0.2-1.0 [facility] Comment on above: Performed By: #### P OCGLUC #### [facility] [address] [address] [address] Germania Cadena Calcium [Mass/Vol] 9.2 mg/dL Normal 8.5-10.1 [facility] Comment on above: Performed By: #### P OCGLUC #### [facility] [address] [address] [address] Germania Cadena Chloride [Moles/Vol] 101 mmol/L Normal 98-107 [facility] Comment on above: Performed By: #### P OCGLUC #### [facility] [address] [address] [address] Germania Cadena CO2 [Moles/Vol] 28.8 mmol/L Normal 21.0-32.0 [facility] Comment on above: Performed By: #### P OCGLUC #### [facility] [address] [address] [address] Germania Cadena Creatinine [Mass/Vol] 0.85 mg/dL Normal 0.55-1.02 [facility] Comment on above: Performed By: #### P OCGLUC #### [facility] [address] [address] [address] Germania Cadena EGFR-AF SCOTTISH >60 Normal >=60 [facility] Comment on above: Performed By: #### P OCGLUC #### [facility] [address] [address] [address] Germania Cadena EGFR-NON AF SCOTTISH >60 Normal >=60 [facility] Comment on above: Performed By: #### P OCGLUC #### [facility] [address] [address] [address] Germania Cadena Globulin (S) [Mass/Vol] 3.7 g/dL Normal [facility] Comment on above: Performed By: #### P OCGLUC #### [facility] [address] [address] [address] Germania Cadena Glucose [Mass/Vol] 106 mg/dL Normal 74-106 [facility] Comment on above: Performed By: #### P OCGLUC #### [facility] [address] [address] [address] Germania Cadena Potassium [Moles/Vol] 4.3 mmol/L Normal 3.5-5.1 [facility] Comment on above: Performed By: #### P OCGLUC #### [facility] [address] [address] [address] Germania Cadena Protein [Mass/Vol] 7.0 g/dL Normal 6.4-8.2 [facility] Comment on above: Performed By: #### P OCGLUC #### [facility] [address] [address] [address] Germania Cadena Sodium [Moles/Vol] 137 mmol/L Normal 136-145 [facility] Comment on above: Performed By: #### P OCGLUC #### [facility] [address] [address] [address] Germania Cadena Urea nitrogen [Mass/Vol] 15.0 mg/dL Normal 7.0-18.0 [facility] Comment on above: Performed By: #### P OCGLUC #### [facility] [address] [address] [address] Germania Cadena Urea nitrogen/Creatinine [Mass ratio] 17.6 mg/mg Normal [facility] Comment on above: Performed By: #### P OCGLUC #### [facility] [address] [address] [address] Germania Cadena TSHon 11-07-2022 TSH 2.051 uIU/mL Normal 0.358-3.740 [facility] Comment on above: Performed By: #### P OCGLUC #### [facility] [address] [address] [address] Germania Cadena MICROALBUMIN URINEon 022 Albumin, Urine 24.8 ug/mL Normal Not Estab. [facility] Comment on above: Performed By: #### M ALBLC #### [facility] [address] [address] [address] Germania Cadena CBC AUTO DIFFon 04-01-2022 BASO # 0.1 103/ul Normal 0.0-0.1 [facility] Comment on above: Performed By: #### C BC #### [facility] [address] [place] [address] Dr. Germania Cadena Basophils/100 WBC (Bld) 1.0 % Normal 0.2-2.0 [facility] Comment on above: Performed By: #### C BC #### [facility] [address] [place] [address] Dr. Germania Cadena EO # 0.3 103/ul Normal 0.0-0.7 [facility] Comment on above: Performed By: #### C BC #### [facility] [address] [place] [address] Dr. Germania Cadena Eosinophils/100 WBC (Bld) 4.5 % Normal 0.9-7.0 [facility] Comment on above: Performed By: #### C BC #### [facility] [address] [place] [address] Dr. Germania Cadena Erythrocyte distribution width (RBC) [Ratio] 12.5 % Normal 11.0-15.0 [facility] Comment on above: Performed By: #### C BC #### [facility] [address] [place] [address] Dr. Germania Cadena Hematocrit (Bld) [Volume fraction] 35.7 % Critically low 36.0-48.0 [facility] Comment on above: Performed By: #### C BC #### [facility] [address] [place] [address] Dr. Germania Cadena Hemoglobin (Bld) [Mass/Vol] 11.8 g/dL Critically low 12.0-16.0 [facility] Comment on above: Performed By: #### C BC #### [facility] [address] [place] [address] Dr. Germania Cadena IG # 0.01 10e3/ul Normal 0.00-0.03 [facility] Comment on above: Performed By: #### C BC #### [facility] [address] [place] [address] Dr. Germania Cadena IG % 0.2 % Normal 0.0-0.5 [facility] Comment on above: Performed By: #### C BC #### [facility] [address] [place] [address] Dr. Germania Cadena LYMPH # 1.6 103/ul Normal 1.2-3.8 [facility] Comment on above: Performed By: #### C BC #### [facility] [address] [place] [address] Dr. Germania Cadena Lymphocytes/100 WBC (Bld) 26.9 % Normal 20.5-60.0 [facility] Comment on above: Performed By: #### C BC #### [facility] [address] [place] [address] Dr. Germania Cadena MANUAL DIFF REQ NO Normal [facility] Comment on above: Performed By: #### C BC #### [facility] [address] [place] [address] Dr. Germania Cadena MCH (RBC) [Entitic mass] 30.6 pg Normal 26.7-34.0 [facility] Comment on above: Performed By: #### C BC #### [facility] [address] [place] [address] Dr. Germania Cadena MCHC (RBC) [Mass/Vol] 33.1 g/dL Normal 29.9-35.2 [facility] Comment on above: Performed By: #### C BC #### [facility] [address] [place] [address] Dr. Germania Cadena MCV (RBC) [Entitic vol] 92.5 fL Normal 81.0-99.0 [facility] Comment on above: Performed By: #### C BC #### [facility] [address] [place] [address] Dr. Germania Cadena MONO # 0.5 103/ul Normal 0.3-0.8 [facility] Comment on above: Performed By: #### C BC #### [facility] [address] [place] [address] Dr. Germania Cadena Monocytes/100 WBC (Bld) 8.2 % Normal 1.7-12.0 [facility] Comment on above: Performed By: #### C BC #### [facility] [address] [place] [address] Dr. Germania Cadena NEUT # 3.6 103/ul Normal 1.4-6.5 [facility] Comment on above: Performed By: #### C BC #### [facility] [address] [address] [address] Germania Cadena Neutrophils/100 WBC (Bld) 59.2 % Normal 43.0-75.0 [facility] Comment on above: Performed By: #### C BC #### [facility] [address] [place] [address] Dr. Germania Cadena Platelet mean volume (Bld) [Entitic vol] 10.9 fL Normal 9.5-13.5 [facility] Comment on above: Performed By: #### C BC #### [facility] [address] [place] [address] Dr. Germania Cadena PLT 254 103/ul Normal 150-450 [facility] Comment on above: Performed By: #### C BC #### [facility] [address] [place] [address] Dr. Germania Cadena RBC 3.86 106/ul Critically low 4.20-5.40 [facility] Comment on above: Performed By: #### C BC #### [facility] [address] [place] [address] Dr. Germania Cadena WBC 6.0 103/ul Normal 4.0-11.0 [facility] Comment on above: Performed By: #### C BC #### [facility] [address] [place] [address] Dr. Germania Cadena CREATININE URINEon URINE CREAT 40.38 mg/dL Normal 20.00-300.00 [facility] Comment on above: Performed By: #### C REAU #### [facility] [address] [place] [address] Dr. Germania Cadena GLYCOHEMOGLOBIN A1Con 2021 ADA RECOMMENDATION SEE BELOW Normal [facility] Comment on above: Result Comment: ADA RECOMMENDED LIMIT 4.0 - 6.0 ADA THERAPEUTIC TARGET < 7.0 ACTION SUGGESTED > 7.0 Performed By: #### A 1C #### [facility] [address] [place] [address] Dr. Germania Cadena Glucose [Mass/Vol] 117 mg/dL Normal [facility] Comment on above: Performed By: #### A 1C #### [facility] [address] [place] [address] Dr. Germania Cadena HbA1c (Bld) [Mass fraction] 5.7 % Normal 4.5-6.2 [facility] Comment on above: Performed By: #### A 1C #### [facility] [address] [place] [address] Dr. Germania Cadena PROF CHEM 8 (BAS METB)on Anion gap [Moles/Vol] 14.6 mmol/L Normal [facility] Comment on above: Performed By: #### B MP #### [facility] [address] [place] [address] Dr. Germania Cadena Calcium [Mass/Vol] 9.8 mg/dL Normal 8.5-10.1 [facility] Comment on above: Performed By: #### B MP #### [facility] [address] [place] [address] Dr. Germania Cadena Chloride [Moles/Vol] 97 mmol/L Critically low 98-107 [facility] Comment on above: Performed By: #### B MP #### [facility] [address] [place] [address] Dr. Germania Cadena CO2 [Moles/Vol] 29.9 mmol/L Normal 21.0-32.[address] [facility] Comment on above: Performed By: #### B MP #### [facility] [address] [place] [address] Dr. Germania Cadena Creatinine [Mass/Vol] 0.78 mg/dL Normal 0.55-1.02 [facility] Comment on above: Performed By: #### B MP #### [facility] [address] [place], [place] [id number] Dr. Germania Cadena EGFR-AF SCOTTISH >60 Normal >=[address] [facility] Comment on above: Performed By: #### B MP #### [facility] [address] [address] [address] Germania Cadena EGFR-NON AF SCOTTISH >60 Normal >=60 [facility] Comment on above: Performed By: #### B MP #### [facility] [address] [address] [address] Germania Cadena Glucose [Mass/Vol] 97 mg/dL Normal 74-106 [facility] Comment on above: Performed By: #### B MP #### [facility] [address] [place] [address] Dr. Germania Cadena Potassium [Moles/Vol] 4.5 mmol/L Normal 3.5-5.1 [facility] Comment on above: Performed By: #### B MP #### [facility] [address] [place] [address] Dr. Germania Cadena Sodium [Moles/Vol] 137 mmol/L Normal 136-145 [facility] Comment on above: Performed By: #### B MP #### [facility] [address] [place] [address] Dr. Germania Cadena Urea nitrogen [Mass/Vol] 12.0 mg/dL Normal 7.0-18.0 [facility] Comment on above: Performed By: #### B MP #### [facility] [address] [place] [address] Dr. Germania Cadena Urea nitrogen/Creatinine [Mass ratio] 15.4 mg/mg Normal [facility] Comment on above: Performed By: #### B MP #### [facility] [address] [place] [address] Dr. Germania Cadena XR LSPINE 2_3 VIEWSon [...] ALEJANDRO EDWARDS Date: 2022-01-28 18:12 Normal [facility] POINT OF CARE GLUCOSEon 12-23 Glucose [Mass/Vol] 112 mg/dL Critically high 74-106 T [facility] Comment on above: Performed By: #### P OCGLUC #### [facility] [address] [place], [place] [address] Dr. Germania Cadena Covid-19 PCR (CVDTB)on 12-22 SARS-CoV-2 (COVID-19) RNA RONNIE+probe Ql (Unsp spec) Not detected Normal NOT DETECTED [facility] Comment on above: Result Comment: This test is not yet approved or cleared by the [place] FDA. When there are no FDA-approved or cleared tests available, and other criteria are met, FDA can make tests available under an emergency access mechanism called an Emergency Use Authorization (EUA). The EUA for this test is supported by the [place] of Health and Human Service's (HHS's) declaration [...] consistent with SARS-CoV-2. Performed By: #### C VDTBH #### [facility] [address] [place], [place] [address] Dr. Germania Cadena CBC AUTO DIFFon 01-03-2022 BASO # 0.0 103/ul Normal 0.0-0.1 [facility] Comment on above: Performed By: #### C BC #### [facility] [address] [place] [address] Dr. Germania Cadena Basophils/100 WBC (Bld) 0.5 % Normal 0.2-2.0 [facility] Comment on above: Performed By: #### C BC #### [facility] [address] [place] [address] Dr. Germania Cadena EO # 0.1 103/ul Normal 0.0-0.7 [facility] Comment on above: Performed By: #### C BC #### [facility] [address] [place] [address] Dr. Germania Cadena Eosinophils/100 WBC (Bld) 1.8 % Normal 0.9-7.0 [facility] Comment on above: Performed By: #### C BC #### [facility] [address] [place] [address] Dr. Germania Cadena Erythrocyte distribution width (RBC) [Ratio] 13.1 % Normal 11.0-15.0 [facility] Comment on above: Performed By: #### C BC #### [facility] [address] [place] [address] Dr. Germania Cadena Hematocrit (Bld) [Volume fraction] 34.8 % Critically low 36.0-48.0 [facility] Comment on above: Performed By: #### C BC #### [facility] [address] [place] [address] Dr. Germania Cadena Hemoglobin (Bld) [Mass/Vol] 11.4 g/dL Critically low 12.0-16.0 [facility] Comment on above: Performed By: #### C BC #### [facility] [address] [place] [address] Dr. Germania Cadena IG # 0.02 10e3/ul Normal 0.00-0.03 [facility] Comment on above: Performed By: #### C BC #### [facility] [address] [place] [address] Dr. Germania Cadena IG % 0.3 % Normal 0.0-0.5 [facility] Comment on above: Performed By: #### C BC #### [facility] [address] [place] [address] Dr. Germania Cadena LYMPH # 1.0 103/ul Critically low 1.2-3.8 [facility] Comment on above: Performed By: #### C BC #### [facility] [address] [place] [address] Dr. Germania Cadena Lymphocytes/100 WBC (Bld) 13.1 % Critically low 20.5-60.0 [facility] Comment on above: Performed By: #### C BC #### [facility] [address] [place] [address] Dr. Germania Cadena MANUAL DIFF REQ NO Normal [facility] Comment on above: Performed By: #### C BC #### [facility] [address] [place] [address] Dr. Germania Cadena MCH (RBC) [Entitic mass] 30.8 pg Normal 26.7-34.0 [facility] Comment on above: Performed By: #### C BC #### [facility] [address] [place] [address] Dr. Germania Cadena MCHC (RBC) [Mass/Vol] 32.8 g/dL Normal 29.9-35.2 [facility] Comment on above: Performed By: #### C BC #### [facility] [address] [place] [address] Dr. Germania Cadena MCV (RBC) [Entitic vol] 94.1 fL Normal 81.0-99.0 [facility] Comment on above: Performed By: #### C BC #### [facility] [address] [place] [address] Dr. Germania Cadena MONO # 0.4 103/ul Normal 0.3-0.8 [facility] Comment on above: Performed By: #### C BC #### [facility] [address] [place] [address] Dr. Germania Cadena Monocytes/100 WBC (Bld) 5.5 % Normal 1.7-12.0 [facility] Comment on above: Performed By: #### C BC #### [facility] [address] [place] [address] Dr. Germania Cadena NEUT # 6.1 103/ul Normal 1.4-6.5 [facility] Comment on above: Performed By: #### C BC #### [facility] [address] [address] [address] Germania Cadena Neutrophils/100 WBC (Bld) 78.8 % Critically high 43.0-75.0 [facility] Comment on above: Performed By: #### C BC #### [facility] [address] [place] [address] Dr. Germania Cadena Platelet mean volume (Bld) [Entitic vol] 10.6 fL Normal 9.5-13.5 [facility] Comment on above: Performed By: #### C BC #### [facility] [address] [place] [address] Dr. Germania Cadena PLT 193 103/ul Normal 150-450 [facility] Comment on above: Performed By: #### C BC #### [facility] [address] [place] [address] Dr. Germania Cadena RBC 3.70 106/ul Critically low 4.20-5.40 [facility] Comment on above: Performed By: #### C BC #### [facility] [address] [place] [address] Dr. Germania Cadena WBC 7.8 103/ul Normal 4.0-11.0 [facility] Comment on above: Performed By: #### C BC #### [facility] [address] [place] [address] Dr. Germania Cadena PROF CHEM 8 (BAS METB)on Anion gap [Moles/Vol] 11.5 mmol/L Normal [facility] Comment on above: Performed By: #### B MP #### [facility] [address] [place] [address] Dr. Germania Cadena Calcium [Mass/Vol] 9.0 mg/dL Normal 8.5-10.1 [facility] Comment on above: Performed By: #### B MP #### [facility] [address] [address] [address] Germania Cadena Chloride [Moles/Vol] 99 mmol/L Normal 98-107 [facility] Comment on above: Performed By: #### B MP #### [facility] [address] [address] [address] Germania Cadena CO2 [Moles/Vol] 30.2 mmol/L Normal 21.0-32.0 [facility] Comment on above: Performed By: #### B MP #### [facility] [address] [address] [address] Germania Cadena Creatinine [Mass/Vol] 0.85 mg/dL Normal 0.55-1.02 [facility] Comment on above: Performed By: #### B MP #### [facility] [address] [address] [address] Gremania Cadena EGFR-AF SCOTTISH >60 Normal >=[address] [facility] Comment on above: Performed By: #### B MP #### [facility] [address] [address] [address] Germania Cadena EGFR-NON AF SCOTTISH >60 Normal >=60 [facility] Comment on above: Performed By: #### B MP #### [facility] [address] [address] [address] Germania Cadena Glucose [Mass/Vol] 110 mg/dL Critically high 74-106 [facility] Comment on above: Performed By: #### B MP #### [facility] [address] [address] [address] Germania Cadena Potassium [Moles/Vol] 4.7 mmol/L Normal 3.5-5.1 [facility] Comment on above: Performed By: #### B MP #### [facility] [address] [place] [address] Dr. Germania Cadena Sodium [Moles/Vol] 136 mmol/L Normal 136-145 [facility] Comment on above: Performed By: #### B MP #### [facility] [address] [address] [address] Germania Cadena Urea nitrogen [Mass/Vol] 23.0 mg/dL Critically high 7.0-18.0 [facility] Comment on above: Performed By: #### B MP #### [facility] [address] [place], [place] [address] Dr. Germania Cadena Urea nitrogen/Creatinine [Mass ratio] 27.1 mg/mg Normal [facility] Comment on above: Performed By: #### B MP #### [facility] [address] [place], [place] [address] Maxillofacial w/o Contras [...] Dacosta M.D. Transcribed by: SHAY Technologist: BETTYE [facility] Coding Summary.on 12-27-2021 Coding Summary. CD:[id number] Gh0bWw+PGhlYWQ+PE1FV BDvK35bbZCxbM9KL6jOP X9JWRJEIMLQWP1QPB3wi GF9MZbpA5DkvfBb PzljtMDkTK35YSj7ADW1 cCqpLEhzjN7xfCAlM2p4 VnJpNZ06fX15VXvfLTNa FpM5ZvIjyfzsuHOi T4wuDbYlkNNtUao+PHRh YmxlIHdpZHRoPScxMDAl WfJwbRxdTN2iKk4fWVOg LWNvbGxhcHNlOiBj v7wdYUZjTDsnJK6ynIgv H2MzwBS4EUOtm4i5Si71 dHI+TZNfVCK8iMojPKsi s697EkNfw0phONN3 nAMzYMdgHYD4Q36sf0G1 TOUkHLKgZAZ0qWC9dS5w mBatjikeI4JpnYXbXdT1 DFA0gUWzqR6ubXas njkduM7ySvb+M77EJM6G VOTMXL9VVax1S1BnJznn dHI+IJ91BBUsBK12rIRw oIZig0tgqYq4SpDa EIAkWCZ1yKccITybm1Wi OQGtQ70mtQDic9W8TCKa nVyseQNtQrGiiYL9qU3a VVersrouc8ykkxov Tmjiu1uyce44wI64O63j RBakBUMwJWS1MHQeDZTq tKjqru9ueN3rFe8+IDxj e7zxv5jtkDf1GxWf PSKxxyCtxDdxHIN7b8Rl Hu14F5ZwoGdgg4JsTjj9 da33nNFoo3J4vQP4CPzc XHRbyK0hQQwsHzO3 JANrSvMjjM65wVOdTMwb Yd9kcKmhpXgnDI9iSIYl uergRXQvnI9vTVTbjQOg vWhuMO1nSFMrryzn r440ZxVfTVH5AUPaqCLo F7JnmB5uQnTcJSKrVBYi X5RpsSDdHYueF768TVpx WiP6MKNqwjGlO0Lu UCLjkKtuOaL7i0I7Rb7K t3JchusnETG0UQydPDT4 PmH0CeRqMyX3Q9MhEde1 EIOhiYrzPR9tE4Yh SDQkdcmtkwdnaIV6YHZk YQCvsF60xKElFSguFj8z s6B5l524QYVyVLGmiZ48 Sw3hhSwuBNKocAOY oX7igjoqc6bcdirxXnWq NTRsDIi7VXx5MZOthTdl UeZuOYN9NkU0VGL9ySVi nI8lyOguiwrweS0t Oyc+P49bcY7iVND5MSU4 dpxaVKRrsfZxLR24BN20 H8JiHauyuDQlmSZ+PGRp jaAhuEsaNH5qVuLo l8mzz8WtDDosF4IkMZWb UAybXql0SMCsLQD4iIP4 aC1rLNXyIDsbb2W7rRF6 X4FuccGfms5mz1tc HOLkNVqxX59hwGXce7D3 RUEoaLM5XPDdaHipHsIc tE35Iwa+EWTokLxzi3Hl Tieco3ahe8qjxRw5 IjMwJSIgdmFsaWduPSJ0 g5OnCa03D62eDGjrINOn SDMcQVAvXEJpmYxkmo3i nL3nPr3+PGNvbCB3 zKO1bG6pJFVmPaE9FSkt D464HaKpcPOyRibsz7ng z7gkgJl6NxAoGXKrubSt sSuwZQD8v3BuQl25 Q59vFUipTHNrYRGrVVBb JZSurFdgdg0yfV5bWi6+ TX5du9lsfy07dR55mWL+ RTGvVUN0uRwvEEzt VFRrbN3wACubRpJ1CMUo EhVhfF94iVXwSUqbKb3h xGrzbBqaKI3lAOOhyywt k142ToQcl5ywDNEx eTFrWMnuVVI6T94lq3W6 WYRuSCHqZAU3mWQ5eI5i bGlnbjogbGVmdDsgdmVy wDqqHWhqWQlqJ380 IHRvcDsnPlBhdGllbnQg BcPoFZh9B1HySmo7IBGb hQjcEH3jcIZjQHqlDz3x fPztzZvcEP8dIJSy wfkto689AgHjm6qzNLZm mMXmQPdiOKF0Y22ob0D6 ZGMwHNFtUGK2kLJ1dN3w bGlnbjogbGVmdDsg qgZerMzcDGimCSibE037 IHRvcDsnPkJpcnRoIERh sMA4XJ91WG39jKDvw8H2 qPK4V1PwZJQbsksk vrkfgEH6GVPdQKPmcG61 Cv2umRrsNk6fVJLbFMD6 PZXloWVdD6XtqV6cJtMx CCAwUDLpY8LwdHWm SQkdT600ZXjrByC4NEDk qiLtV4MkSTGrgJtfCzH3 i8K7Ap2GQ0F5RU75PF60 fYSmq5K6fUW1C7Qy QPNximwrzootiDH4GNJk JULpjZ47Le4fbXimQr9n SBTeFTZ4ZAEtiEWnO4Tv pO8aMuKhBSOtAJOr E3JopSXaRGshA718IBxz WdF6QYTiufHkV3BsGOXv aEphIbD8n2X4Ti5TIHi7 QA45DW62jUQwz6D2 xFG4O1NrFZKjczjsczzi zOH5CSJlOYWoiE66Jb8g wCvkSz4wRYLkERY8MILk aKIhI6ZyxP0iXhGp AWPlBZEmF1GsjQVoXWud X321KNjkIzH1LCNxelCy T0QhBWEoyHziKcG9u5G8 Sp8ROJEhYE69JHJ9 yXZ5CX82EO87W9NeTiah dGFibGU+PHRhYmxlIHdp ZHRoPScxMDAlJyBzdHls OH6iSy3fOGXaFEXn tQbbjNXeEoRrv8zjAXSg IMndHP4lyLpuD8HpyXX2 HTOte1w1Wo54A30fV7Qh dXA+WUOuvVT4xLY0 iS6aUfTeCcO7TCnpH877 RdIbsYApUrurv0wyx9od pAh2WyO6FHNdabMolZef BKD2q0IlVj77V22v IHdpZHRoPSIxNSUiIHZh kPcjmf7pbT3zQf7+PGNv tEA6cGQ4bU4fHmYbTkR3 QVthL878XyGqkCFx Oaruu9mrj3cbkWd0DnXt QJFdnfKihHxsLGC3s3Cm An66H1NitFlso3SfOjy5 ve33vRQbv7O1jOW5 J5HmUGSljpbhoFCwjOzb DZ2rLHBhohdnQPKexP3i DXObA2c8PlEpBtY0ELol K1TqysL4MXZgdGZr EFtrRDR5W76cu1Z7VYEl ISZaEDT9eNR0mQ2ymFgk bjogbGVmdDsgdmVydGlj ZHnyRQwiT595FKAw pCdcSTPznA8bXGMjhBZt jVpxAO5kKSFkqtndShFE SI2BYB4ZTPuXFPBNHPOH VZWSXDGIDF36RB54 xUSit8R7wCZ5V7NoCWBi picgqtafmPK8NDGfDDOe fJ77rZVzFYcjYh2dd9N6 v129OGNqSAVpbU73 Ak9gwOlcNNDxtQIThV3z oqnuc7oqoyxxHsSwMITz OOz5SDn8FDGcjNsdMiWy VIA7XoN4ZQL4jMYp kX9fhEetmzrhlT3gIym+ MTEvMjYvMTkzNzwvdGQ+ FPLnMPS0xHdmGDvmKQWk cV5bLXTyM5w0PcAx EdH8EVtjH1BeVVYorewk Lx68sM6tHsKoTvP7TIwb Z5QuivX1RBTieDDuYIlb PPO1N61xy0K1FLJl BIOaYMA7pNH8bX1bvHud bjogbGVmdDsgdmVydGlj ZZokOApkZ429ACTufXgy Brl3BEdcSHTvVM58 LS47uVFth7G7aGV6T1Bq KMFstznucvkqwPW5CANa HHZqoI47jJIsWHjmEc1k b1X1l149ZEGqDAPl tW97Ue0ieMlkXZHzqDSW kG7ncviav0wtqoojJfGt XBZlCDb0TAg5WNAjpCtw IyZeYME8ByK6UIT1 nVOpiT8elFgjmzyryC7x Oyc+ScXbGHtoBI49FF79 tBSld7M5aQG0D5RuQWFt basczpwklLW5ZSWg KXEcfJ40uWWoQAvfGi4l o3G7l969GKVeBXLbdG07 Kg0igYitHHTauCCQzL6g fxmmn5zdjoodNaYi CFOjYZu5DCz0FMNtsAxu WyAzQXR4AuZ1QAT7uHNt gO4lvNfxkqczlQ8tHlv+ V5B3iBY6nKTqxGkn dGQ+PY41fk23V8BmOmwr Oqv9SAUiHBN3kMB5lW5e TSQrPRhtg5I9hGK3N0Uc fjRfsf4ix1nqIANa NGigJ14wuIYqb4V0HKTt cOE8GXVwpHatUiVemI42 Oyc+FTJjmPkhw0NzBwrf y3ncc9syzFd5NzEc LMUahtEjoZszXND6q0Zu Gd78P49oKLnbJGMrKULl AOGuBSVktQjhxa4dvP5t Ii8+WPJtgGM0oVJ0 bL9cHiAyJdA2RModY052 AsGqwPQvChqdo6ttg1fs eIg1EsKzZKGfavHkjOml HBD2u2GcHb33J9Md gYtim8DbPqz3ur49aKHi x8G6vVR3O5ZmVOGvarjz rMXakNaoVO8kDLAoykhf HLBocD9mAZFoL8h4 BzCqAdK3CCroW9AahlO6 ELKdnDLhXYHrsMRElT4j fifbe8jefteaTeHxQONt IPl4JCr1LXBnoZtv PzWjHTX6HqN4APX8rXLd jX6vhVjmaeggkO0iTus+ YJo0j2acjXTjOP7ztND5 DY24YA12kLVqh1V2 zHR6Z5RnRBVsofhhfwkx bVU2YUSiHFGcjZ14Eh1h aIhrYj7oQLTkMEY5SHEs sZLaW3UihW1eBhTi BFVuUMKkU5QzlPObULvs J097UAyfPaF9KQMguwMc S2KwLKWqsJaeOfS6i8W9 Bu1NJH09YN84OF14 xNHug8G7nMO7Q1XnDKYl prbgugtquCS3FYMjCZPu vR10Iq6ohSaqTz1bCBBd HFS4HMYnvDBaV0At jW7rTcCbNSKqFLDfX7Tm wRCjFVwqJ234JKxbMoW6 EXVxwrUoY3ElFSCzmVlo NzG5b6P3Oj6JSt54 BW66ET35vEQqs9O3bZD9 M4ExRZZvdnoqdnaakYY6 EJLfYFNhsX11Cn8jfHqx Dn1bRHJaMIQ5KCIu kECoP7CcvP6cUkNeREJl VGRzH4AihBCfOPkmS870 MCtqLqI0XWKbfsFjY6Sk TAGbcYgtFbP7z1J2 Jt2YUSipteb8F4WmLsje dHI+VC15XUYhGA06fVZb lNMrf7zlzTr2HtZmOEXh MES3bWrvXNxpn2Wj ZXIt (more content not included)... Normal [facility] Consent for Treatmenton 06-0 Consent for Treatment [id number] #[id number]:127 Normal [facility] Physician Orderon 12-09-2021 Physician Order [id number] #[id number]:127 Normal [facility] Physician Orderon 11-22-2021 Physician Order [id number] #1.00CD:[address] [facility] [address] TEMPORAL BONES WO CONon 0 [...] by: Domenic GARVIN Date: 2021-11-12 16:16 Normal [facility] Vital Signs Date Time Vital Sign Value Performing Clinician Faci lity 05-22-2024 11:100400 Body height 157.5 cm Sandra Rae MD Work Phone: [facility] 05-22-2024 11:10040 Body mass index (BMI) [Ratio] 31.28 kg/m2 Sandra Rae MD Work Phone: [facility] 05-22-2024 11:10040 Body weight 77.56 kg Sandra Rae MD Work Phone: [facility] 05-22-2024 11:10-0400 Diastolic blood pressure 60 mm[Hg] Sandra Rae MD Work Phone: [facility] 05-22-2024 11:10-0400 Systolic blood pressure 148 mm[Hg] Sandra Rae MD Work Phone: [facility] Healthcare Encounters Encounter Date Encounter Type Care Provider Facility Start: 05-31-2024 End: 05-31-2024 Clinisync Result Encounter Sandra Rae MD Work Phone: [facility] External Department Unsolicited Start: 05-31-2024 End: 05-31-2024 Clinisync Result Encounter Sandra Rae MD Work Phone: [facility] External Department Unsolicited Start: 05-27-2024 End: 05-27-2024 Refill Marce Veliz MA [facility] FM Comment on above: 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) Start: 05-22-2024 End: 05-22-2024 Bamboo flowsheet Sandra Rae MD Work Phone: [facility] Start: 05-22-2024 End: 05-22-2024 Bamboo [...] Available Start: 04-10-2024 End: 04-10-2024 ambulatory RUTHIE BECKHAMZPATRICK Not Available Start: 01-09-2024 End: 01-09-2024 ambulatory SELLERS FAWWAD Not Available Start: 07-06-2023 End: 07-06-2023 ambulatory SELLERS FAWWAD Not Available Start: 07-06-2023 Patient encounter procedure Sandra Rae MD Work Phone: [facility] Start: 11-07-2022 End: 11-08-2022 ambulatory SELLERS H FAWWAD Facility:[facility] Start: 04-01-2022 End: 04-02-2022 ambulatory SELLERS H FAWWAD Facility:[facility] Start: 01-28-2022 End: 01-29-[address] ALEJANDRO EDWARDS Facility:[facility] Start: 01-11-2022 Encounter for preprocedural laboratory examination [facility] Start: 01-11-2022 End: 01-11-2022 ambulatory SELLERS H FAWWAD Facility:[facility] Start: 01-08-2022 End: 01-09-2022 ambulatory SANDRA RAE Facility:[facility] Start: 01-08-2022 End: 01-09-2022 Encounter for preprocedural laboratory examination SANDRA RAE Facility:[facility] Start: 01-06-2022 Encounter for preprocedural cardiovascular examination SANDRA [facility] Start: 01-03-2022 End: 01-04-2022 ambulatory SELLERS H FAWWAD Facility:[facility] Start: 12-24-2021 End: 12-24-2021 Patient encounter procedure Sandra Rae [facility] Start: 11-11-2021 End: 11-12-2021 ambulatory SHAIKH Carmine SIMON Facility:[facility] Procedures Date Procedure Procedure Detail Performing Clinician Start: 05-31-2024 ALL BASIC METABOLIC PANEL Generic External Data Provider Plan of Treatment Date Care Activity Detail Author Start: 04-04-2025 Urine screening for protein Diabetes: Urine Protein Screening [facility] Start: 10-08-2024 End: 10-08-2024 Patient encounter procedure 10/08/2024 9:00 AM EDT Office Visit [facility] [address] [place] [address] Ruthie Narvaez NP [address] [place] [address] [facility] Start: 07-27-2024 Glaucoma screening Diabetes: R etinopathy Screening [facility] Start: 07-09-2024 End: 07-09-2024 Patient encounter procedure 07/09/2024 11:10 AM EST Office Visit [facility] [address] [place] [address] Sandra Rae MD [address] [place] [address] [facility] Start: 07-06-2024 Medicare Annual [...] EDT Office Visit [facility] [address] [place] [address] Sandra Rae MD [address] [place] [address] Arrived [facility] Comment on above: Arrived Start: 03-24-2024 Influenza vaccination Influenza Vacc ine (#1) [facility] Start: 10-09-2023 Hemoglobin A1c measurement Diabetes: Hemoglobin A1C [facility] Payers Date Payer Category Payer Medicare (Managed Care) [facility] [id number] 2020 Unknown [id number] 1957 Medicare [id number] 1935 Unknown [id number] 2.16.840.1.398783.3.579.2. 593 1937 Unknown [id number] 2.16.840.1.522648.3.579.2. 593 1937 Unknown [id number] 2.16.840.1.901698.3.579.2. 593 1937 Unknown [id number] 2.16.840.1.223570.3.579.2. 593 1937 Unknown [id number] 2.16.840.1.048882.3.579.2. 593 1937 Unknown [id number] 2.16.840.1.262100.3.579.2. 593 1937 Unknown [id number] 2.16.840.1.943322.3.579.2. 593 1937 Unknown [id number] 2.16.840.1.040490.3.579.2. 1259 1937 Unknown [id number] 2.16.840.1.166806.3.579.2. 1259 1937 Unknown [id number] 2.16.840.1.054926.3.579.2. 1259 1937 Unknown [id number] 2.16.840.1.533036.3.579.2. 1259 Social History Date Type Detail Facility Tobacco smoking status Never smoker [facility] Start: 07-06-2023 End: 04-10-2024 Sex Assigned At Female [facility] Start: 01-09-2024 Tobacco smoking status NHIS Never smoked tobacco [facility] Start: 01-09-2024 [...] Sex assigned at Not on file [facility] NEGATED: Highlighted rowStart: NINF History of tobacco use Passive smoker [facility] Clinical Notes 01-11-2022 to 05-27-2024 Telephone Encounter [...] one that Dr Simon would send in. [facility] 05-27-2024 Miscellaneous Notes Pt had script for 5 days worth requesting the 90 day script like the one that Dr Simon would send in. documented in this encounter [facility] 05-22-2024 History of Present illness Narrative Subjective [...] current use of insulin ([facility]) 07/06/2023 Primary hypertension (CMS/HCC) 07/06/2023 Other hyperlipidemia (CMS/[facility]) 07/06/2023 Hypothyroid (CMS/HCC) 07/06/2023 Recurrent major depressive disorder, in full remission (CMS/HCC) 07/06/2023 Chronic knee pain after total replacement of both knee joints 07/06/2023 Encounter for Medicare annual wellness exam 07/06/2023 Exudative age-related macular degeneration, bilateral, with active choroidal neovascularization ([facility]) 07/08/2023 Essential (primary) hypertension (CMS/HCC) 01/09/2024 Hypothyroidism, unspecified (CMS/HCC) 01/09/2024 Type 2 diabetes mellitus without complications (CMS/HCC) 01/09/2024 Chronic allergic rhinitis 01/09/2024 Resolved Ambulatory Problems Diagnosis Date Noted No Resolved Ambulatory Problems Past Medical History: Diagnosis Date Allergic rhinitis COVID-19 05/2021 Decreased hearing Depression (CMS/HCC) Diabetes mellitus, type 2 (CMS/HCC) Dyslipidemia (CMS/HCC) Gout HTN (hypertension) (CMS/HCC) Intermittent palpitations Mitral late systolic murmur Osteoarthritis [...] with LT t-tube documented in this encounter [facility] 11-07-2022 Note PROCEDURE: XR HIP RT 2 [...] prosthetic right hip when compared to 01/28/2022. Hoh osseous structures show no acute abnormalities. . Electronically authenticated by: ERNESTO MEDRANO Date: 2022-11-07 12:22 [facility] 01-28-2022 Note PROCEDURE: XR KNEE R T [...] authenticated by: ALEJANDRO EDWARDS Date: 2022-01-28 18:09 [facility] 01-28-2022 Note PROCEDURE: XR HIP RT 2 [...] to moderate degenerative changes. Electronically authenticated by: ALEJANRDO EDWARDS Date: 2022-01-28 18:08 [facility] 01-11-2022 Note OPERATIVE NOTE OPERATION DATE: 01/11/2022 [...] to the recovery room in good condition. [facility] Signed and Approved by: DR SANDRA RAE 01/18/2022 08:11:00 [facility] Evaluation + Plan note No data available for this section [facility] Evaluation note Diagnosis Type 2 diabetes [...] of right ear [facility] Diagnosis Type 2 diabetes mellitus with diabetic polyneuropathy, 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/HCC)- Primary Primary hypertension (CMS/HCC) Unspecified essential hypertension Other hyperlipidemia (CMS/HCC) Hypothyroidism, unspecified type ([facility]) Encounter for Medicare annual wellness exam Chronic knee pain after total replacement of both knee joints Chronic allergic rhinitis Recurrent major depressive disorder, in full remission (CMS/HCC) Chronic knee pain after total replacement of both knee joints- Primary Essential (primary) hypertension (CMS/HCC) Unspecified essential hypertension Hypothyroidism, unspecified (CMS/HCC) Type 2 diabetes mellitus without complications ([facility]/HCC) Chronic allergic rhinitis Recurrent major depressive disorder, in full remission (CMS/HCC) Other hyperlipidemia (CMS/HCC) Type 2 diabetes mellitus with diabetic polyneuropathy, 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/HCC)- Primary Primary hypertension (CMS/HCC) Unspecified essential hypertension Other hyperlipidemia (CMS/HCC) Recurrent major depressive disorder, in full remission ([facility]/HCC) 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- Primary [facility] No data available for this section [facility] Summary Purpose Family History No Family History Records FoundNo Family History Records FoundNo Family History Records Found Advance Directives No Advanced Directives Records FoundNo Advanced Directives Records FoundNo Advanced Directives Records Found Additional Source Comments INFORMATION SOURCE (unrecogn ized section and content) DATE CREATED AUTHOR 12/28/2021 [facility] DATE CREATED AUTHOR AUTHOR'S ORGANIZ ATION 11/10/2022 [facility] DATE CREATED AUTHOR AUTHOR'S ORGANIZ ATION 05/24/2024 [facility] dical Specialists EPIC Care Teams (unrecognized sec tion and content) Hand Alterations Seamstress Relationship Specialty Start Date End Date Kanwal Bo MD [address] [place] [address] PCP - Devoted 07/24/22 Unallocated, Yojana Hernandez MD [address] [place] [address] PCP - General Family Medicine 05/08/24 Ruthie Narvaez NP [address] [place] [address] Nurse Practitioner Family Medicine 03/04/24 Hand Alterations Seamstress Relationship Specialty Start Date End Date Kanwal Bo MD [address] [place] [address] PCP - Devoted 07/24/22 Unallocated, Yojana Hernandez MD [address] [place] [address] PCP - General Family Medicine 05/08/24 Ruthie Narvaez NP [address] [place] [address] Nurse Practitioner Family Medicine 03/04/24 Hand Alterations Seamstress Relationship Specialty Start Date End Date Kanwal Bo MD [address] [place] [address] PCP - Devoted 07/24/22 Vickey English MD [address] [place] [address] PCP - General Family Medicine 05/23/24 Ruthie Narvaez NP [address] [place] [address] Nurse Practitioner Family Medicine 03/04/24 Hand Alterations Seamstress Relationship Specialty Start Date End Date Kanwal Bo MD [address] [place], [place] [address] PCP - Devoted 07/24/22 Vickey English MD [address] [place] [address] PCP - General Family Medicine 05/23/24 Ruthie Narvaez NP [address] [place] [address] Nurse Practitioner Family Medicine 03/04/24 Reason for [...] BE BASED ON THE PRIMARY CLINICAL RECORDS. [employer] provides no warranty or guarantee of the accuracy or completeness of information in this document.
[2024-06-06 09:35] LABS: Glucometer 112 mg/dL (74-106)
[2024-06-06] MEDS: LACTATED RINGER'S SOLUTION 1,000 ML 50 ML IV (09:40)
== END 2024-06-06 11:10 | disposition home or self-care (01) ==
PROVIDERS: Visit Provider Otolaryngology
PROC: (CPT 69436; principal; 2024-06-06 10:00)
DX: H65.92 Unspecified nonsuppurative otitis media, left ear (principal); E11.9 Type 2 diabetes mellitus without complications; H69.82 Other specified disorders of Eustachian tube, left ear; H90.72 Mixed conductive and sensorineural hearing loss, unilateral, left ear, with unrestricted hearing on the contralateral side; Z90.49 Acquired absence of other specified parts of digestive tract; Z96.653 Presence of artificial knee joint, bilateral; Z79.84 Long term (current) use of oral hypoglycemic drugs; I10 Essential (primary) hypertension
CPT/HCPCS: 69436; 36415; 82948

== ENCOUNTER 2025-04-08 09:09 | Outpatient (OUT) | payer OTHER, SELFPAY ==
--- OUTSIDE RECORDS SUMMARY | 2025-04-08 09:13 | XMS_ITS | Encounter Summary ---
Author Organization [facility] Address [address] [facility] [place] [address] Care Team Providers Care Field Marketing Director Name Role Phone Kanwal Bo MD Unavailable [phone] Ruthie Narvaez NP Unavailable [phone] Vickey English MD Primary Care Provider [phone] Encounter Details Date Type Department Care Team (Late st Contact Info) Description 06/03/2024 Orders Only [facility] Ot[facility] [address] [facility] [address] [place] [address] Sandra Tobar MD [address] [facility] [address] [place] [address] Social History Tobacco Use Types Packs/Day Years Used Date Smoking Tobacco: Never Passive Smoke Exposure: Never Smokeless Tobacco: Never Alcohol Use Standard Drinks/Week Comments Never 0 (1 standard drink = 0.6 oz pur e alcohol) caffeine: 1-2 cups per day Humiliation, Afraid, Rape, and Kick questionnair e Answer Date Recorded Within the last year, have y ou been afraid of your partner or ex-partner? No 07/06/2023 Within the last year, have y ou been humiliated or emotionally abused in other ways by your partner or ex-partner? No Within the last year, have y ou been kicked, hit, slapped, or otherwise physically hurt by your partner or ex-partner? No 07/06/2023 Within the last year, have y ou been raped or forced to have any kind of sexual activity by your partner or ex-partner? No 07/06/2023 Social Connection and Isolat ion Panel [NHANES] Answer Date Recorded In a typical week, how many times do you talk on the phone with family, friends, or neighbors? More than three times a week 07/06/2023 How often do you get togethe r with friends or relatives? Once a week 07/06/2023 How often do you attend chur or sabianism services? More than 4 times per year 07/06/2023 Do you belong to any clubs o r organizations such as religious groups, unions, fraternal or athletic groups, or school groups? No 07/06/2023 How often do you attend meet ings of the clubs or organizations you belong to? Never 07/06/2023 Are you , , di vorced, , never , or living with a partner? 07/06/2023 AUDIT-C Answer Date Recorded Q1: How often do you have a drink containing alcohol? Never 07/06/2023 Q2: How many drinks containi ng alcohol do you have on a typical day when you are drinking? Patient does not drink Q3: How often do you have si x or more drinks on one occasion? Never 07/06/2023 Overall Financial Resource Strain (CARDIA) Answe r Date Recorded How hard is it for you to pa y for the very basics like food, housing, medical care, and heating? Not hard at all 07/06/2023 PHQ-2 Answer Date Recorded Patient Health Questionnaire-2 Score 0 04/10/2024 [facility] Questionnaire Answer Date Recorded Do you feel stress - tense, restless, nervous, or anxious, or unable to sleep at night because your mind is troubled all the time - these days? Not at all 07/06/2023 Exercise Vital Sign Answer Date Recorde d On average, how many days pe r week do you engage in moderate to strenuous exercise (like a brisk walk)? 0 days 07/06/2023 On average, how many minutes do you engage in exercise at this level? 0 min 07/06/2023 Hunger Vital Sign Answer Date Recorded Within the past 12 months, y ou worried that your food would run out before you got the money to buy more. Never true 07/06/20 23 Within the past 12 months, t he food you bought just didn't last and you didn't have money to get more. Never true 07/06/2023 PRAPARE - Transportation Answer Date Re corded In the past 12 months, has l ack of transportation kept you from medical appointments or from getting medications? No 06/23 In the past 12 months, has l ack of transportation kept you from meetings, work, or from getting things needed for daily living? No 07/06/2023 Housing Stability Vital Sign Answer Jose e Recorded In the last 12 months, was t here a time when you were not able to pay the mortgage or rent on time? No 07/06/2023 In the last 12 months, how many places have you lived? 1 07/06/2023 In the last 12 months, was t here a time when you did not have a steady place to sleep or slept in a group home (including now)? No 07/06/2023 Comments Unknown Sex and Gender Information Value Date Recorded Sex Assigned at Not on file Legal Sex Female 6:40 PM EDT Gender Identity Not on file Sexual Orientation Not on file documented as of this encounter Plan of Treatment Not on file documented as of this encounter Procedures Procedure Name Priority Date/Time Associated Diagnosis Comments ECG 12-LEAD Routine 05/31/2024 7:30 AM EST documented in this encounter Results * ECG 12 lead (05/31/2024 7:30 AM EST) Sandra Tobar MD ECG ORDERABLES Final Result documented in this encounter Visit Diagnoses Not on filedocumented in this encounter Care Teams Field Marketing Director Relationship Specialty Start Date End Date Kanwal Bo MD [address] [place] [address] PCP - Devoted 07/24/22 Vickey English MD [address] [facility] [place] [address] PCP - General Family Medicine 05/23/24 Ruthie Narvaez NP [address] [place] [address] Nurse Practitioner Family Medicine 03/04/24 10/09/24 documented as of this encounter
--- OUTSIDE RECORDS SUMMARY | 2025-04-08 09:13 | XMS_ITS | Encounter Summary ---
Author Organization [facility] Address [address] [place] [address] Phone Care Team Providers Care Feeder Associate Name Role Phone Shaikh ASCENCION Simon Primary Care Provider [phone] Encounter Details Date Type Department Care Team (Late st Contact Info) Description 07/29/2021 Orders Only [facility] [address] [place] [address] Conversion, Onbase Social History Tobacco Use Types Packs/Day Years Used Date Smoking Tobacco: Never Assessed Comments Unknown Sex and Gender Information Value Date Recorded Sex Assigned at Not on file Legal Sex Female 10:37 PM EST Gender Identity Not on file Sexual Orientation Not on file documented as of this encounter Plan of Treatment Scheduled Orders Name Type Priority Associated Diagnoses Orde r Schedule OUTSIDE LAB SCAN Lab Ordered: 07/29/2021 documented as of this encounter Visit Diagnoses Not on filedocumented in this encounter Care Teams Feeder Associate Relationship Specialty Start Date End Date Shaikh Simon MD PCP - General 09/30/21 documented as of this encounter
--- OUTSIDE RECORDS SUMMARY | 2025-04-08 09:13 | XMS_ITS | Encounter Summary ---
Author Organization [facility] Address [address] [place] [address] Care Team Providers Care Veneer Taper Name Role Phone Kanwal Bo MD Unavailable [phone] Shaikh ASCENCION Simon Primary Care Provider [phone] Shaikh ASCENCION Simon Primary Care Provider [phone] Vickey English MD Primary Care Provider [phone] Ruthie Narvaez NP Unavailable [phone] Unallocated, [facility] Provider Primary Care Provi maricruz Vickey Enlgish MD Primary Care Provider [phone] Encounter Details Date Type Department Care Team (Late st Contact Info) Description 08/07/2023 Orders Only [facility] [address] [place] [address] Shaikh Simon MD [address] [facility] [place] [address] Social History Tobacco Use Types Packs/Day Years Used Date Smoking Tobacco: Never Smokeless Tobacco: Never Alcohol Use Standard [...] week 07/06/2023 How often do you attend [facility] or [facility]ostal services? More than 4 times per year 07/06/2023 Do you belong to any clubs o r organizations such as protestant groups, unions, fraternal or athletic groups, or [...] Date Recorded Patient Health Questionnaire-2 Score 0 07/06/2023 [facility] - Occupational Stress Questionnaire Answer Date Recorded [...] place to sleep or slept in a long-term (including now)? No 07/06/2023 Comments Unknown Sex and Gender Information Value Date Recorded Sex Assigned at Not on file Legal Sex Female 6:40 PM EDT Gender Identity Not on file Sexual Orientation Not on file documented as of this encounter Plan of Treatment Not on file documented as of this encounter Procedures Procedure Name Priority Date/Time Associated Diagnosis Comments VASC US CAROTID ARTERY DUPLEX BILATERAL Routine 08/02/2023 10:39 AM EST documented in this encounter Results * Vascular US carotid artery duplex bilateral (08/02/2023 10:39 AM EST) Anatomical Region Laterality Modality Neck Ultrasound us Shaikh Alfred [facility] IMG US PROCEDURES Final Result documented in this encounter Visit Diagnoses Not on filedocumented in this encounter Care Teams Veneer Taper Relationship Specialty Start Date End Date Kanwal Bo MD [address] [place] [address] PCP - Devoted 07/24/22 Shaikh Simon MD [address] [place] [address] PCP - General Internal Medicine 01/25/23 01/08/24 Shaikh Simon MD [address] [place] [address] PCP - General Internal Medicine 01/09/24 03/03/24 Vickey English MD [address] [place] [address] PCP - General Family Medicine 03/04/24 05/07/24 Unallocated, Yojana Hernandez MD [address] [place] [address] PCP - General Family Medicine 05/08/24 05/22/24 Vickey English MD [address] [place] [address] PCP - General Family Medicine 05/23/24 Ruthie Narvaez NP [address] [place] [address] Nurse Practitioner Family Medicine 03/04/24 10/09/24 documented as of this encounter
--- OUTSIDE RECORDS SUMMARY | 2025-04-08 09:13 | XMS_ITS | Encounter Summary ---
Author Organization [facility] Address [address] [facility] [place] [address] Care Team Providers Care Pharmacy Innovation Assistant Name Role Phone Kanwal Bo MD Unavailable [phone] Ruthie Narvaez NP Unavailable [phone] Vickey English MD Primary Care Provider [phone] Encounter Details Date Type Department Care Team (Late st Contact Info) Description 05/31/2024 Clinisync Result Encounter [facility] External Department Unsolicited Provider, Generic External Data Social History Tobacco Use Types Packs/Day Years [...] 07/06/2023 How often do you attend chur ch or jew services? More than 4 times per year 07/06/2023 Do you belong to any clubs o r organizations such as pentecostal groups, unions, fraternal or athletic groups, or [...] Recorded Patient Health Questionnaire-2 Score 0 04/10/2024 [facility] - Occupational Stress [...] place to sleep or slept in a chcf (including now)? No 07/06/2023 Comments Unknown Sex and Gender Information Value Date Recorded Sex Assigned at Not on file Legal Sex Female 6:40 PM EDT Gender Identity Not on file Sexual Orientation Not on file documented as of this encounter Plan of Treatment Not on file documented as of this encounter Procedures Procedure Name Priority Date/Time Associated Diagnosis Comments ECG 12-LEAD 05/31/2024 11:50 AM EST documented in this encounter Results * ECG 12-LEAD (05/31/2024 11:50 AM EST) Anatomical Region Laterality Modality Other 05/31/2024 11:5 0 AM EST Narrative 06/01/2024 6:27 [place] [address] Electrocardiograph Report Signed Patient: LISE SHARP MR#: [id number] : 1935 Acct:[id number] Age/Sex: 88 / F ADM Date: 05/31/24 Loc: PST Attending Dr: Esteban Tobar M.D. Ordering Physician: Esteban Tobar M.D. Date of Service: 05/31/24 Procedure(s): ECG 12 lead Accession Number(s): [id number] cc: [facility] Test Date: 2024-05-31 Pat Name: LISE SHARP Department: Room: - Gender: Female Executive Pilot: : 1935 Requested By: ESTEBAN TOBAR Order Number: [id number] Reading MD: JULIUS DUBOSE Measurements Intervals [place] Rate: 63 P: 19 ID: [id number] QRS: 64 QRSD: 86 T: 51 QT: 410 QTc: 421 Interpretive Statements SINUS RHYTHM WITH OCCASIONAL SUPRAVENTRICULAR PREMATURE COMPLEXES Compared to ECG 01/03/2022 14:40:54 Myocardial infarct finding no longer present Electronically Signed On 06-01-2024 6:27:03 EST by JULIUS DUBOSE Dictated By: Julius Dubose M.D. Signed By: 06/01/24626 DD/ 115 TD/TT: Retail Customer Service Specialist: Procedure Note Radiology, Radiologist, MD - 06/01/2024 [place] [address] Electrocardiograph Report Signed Patient: LIES SHARP AMR#: [id number] : 1935cct:[id number] Age/Sex: 88 / FADM Date: 05/31/24 Loc: PST Attending Dr: Esteban Tobar M.D. Ordering Physician: Esteban Tobar M.D. Date of Service: 05/31/24 Procedure(s): ECG 12 lead Accession Number(s): [id number] cc: [facility] Test Date: 2024-05-31 Pat Name: LISE SHARP Department: Room: - Gender: Female Executive Pilot: : 1935 Requested By: ESTEBAN TOBAR Order Number: [id number] Reading MD: JULIUS DUBOSE Measurements Intervals [place] Rate: 63 P: 19 ID: 203 QRS: 64 QRSD: 86 T: 51 QT: 410 QTc: 421 Interpretive Statements SINUS RHYTHM WITH OCCASIONAL SUPRAVENTRICULAR PREMATURE COMPLEXES Compared to ECG 01/03/2022 14:40:54 Myocardial infarct finding no longer present Electronically Signed On 06-01-2024 6:27:03 EST by JULIUS DUBOSE Dictated By: Julius Dubose M.D. Signed By:06/01/24626 DD/ 1150 TD/TT: Retail Customer Service Specialist: us Generic External Data Provider [facility] Final Result documented in this encounter Visit Diagnoses Not on filedocumented in this encounter Care Teams Pharmacy Innovation Assistant Relationship Specialty Start Date End Date Kanwal Bo MD [address] [place] [address] PCP - Devoted 07/24/22 Vickey English MD [address] [place] [address] PCP - General Family Medicine 05/23/24 Ruthie Narvaez NP [address] [place] [address] Nurse Practitioner Family Medicine 03/04/24 10/09/24 documented as of this encounter
--- OUTSIDE RECORDS SUMMARY | 2025-04-08 09:13 | XMS_ITS | Clinical Summary ---
Author Organization [facility] Address [address] [facility] [place] [address] Phone Care Team Providers Care Cross Cut Sawyer Name Role Phone Shaikh ASCENCION Simon Primary Care Provider [phone] Social History Tobacco Use Types Packs/Day Years Used Date Smoking Tobacco: Never Assessed Comments Unknown Sex and Gender Information Value Date Recorded Sex Assigned at Not on file Legal Sex Female 10:37 PM EST Gender Identity Not on file Sexual Orientation Not on file Last Filed Vital Signs Vital Sign Reading Time Taken Comments Blood Pressure 138/68 02/18/2022 2:25 PM EDT Pulse 60 02/18/2022 2:25 PM EDT Temperature - - Respiratory Rate - - Oxygen Saturation - - Inhaled Oxygen Concentration - - Weight 69.9 kg (154 lb) 02/18/2022 2:25 PM EDT Height 157.5 cm (5' 2 ) 02/18/2022 2:25 PM EDT Body Mass Index 28.17 02/18/2022 2:25 PM EDT Plan of Treatment Health Maintenance Due Date Last Done Comments Lipid Panel 1935 Yearly Adult Physical 1935 DTaP/Tdap/Td Vaccines (1 - Tdap) 1959 Pneumococcal Vaccine (1 of 1 - PCV) 1987 Zoster Vaccines (1 of 2) 1987 Bone Density Scan 2002 RSV High Risk: (Elderly (60+ ) or Population) (1 - 1-dose 75+ series) 2012 COVID-19 Vaccine (1 - 2023-2 5 season) 2025 Influenza Vaccine (#1) 2025 HIB Vaccines Aged Out No longer eligi ble based on patient's age to complete this topic HPV Vaccines Aged Out No longer eligi ble based on patient's age to complete this topic Hepatitis A Vaccines Aged Out No long er eligible based on patient's age to complete this topic Hepatitis B Vaccines Aged Out No long er eligible based on patient's age to complete this topic IPV Vaccines Aged Out No longer eligi ble based on patient's age to complete this topic Meningococcal Vaccine Aged Out No polly paola eligible based on patient's age to complete this topic Rotavirus Vaccines Aged Out No longer eligible based on patient's age to complete this topic Care Teams Cross Cut Sawyer Relationship Specialty Start Date End Date Shaikh Simon MD PCP - General 09/30/21
--- OUTSIDE RECORDS SUMMARY | 2025-04-08 09:13 | XMS_ITS | Encounter Summary ---
Author Organization [facility] Address [address] [place] [address] Care Team Providers Care Triage Licensed Practical Nurse Name Role Phone Kanwal Bo MD Unavailable [phone] Shaikh ASCENCION Simon Primary Care Provider [phone] Shaikh ASCENCION Simon Primary Care Provider [phone] Vickey English MD Primary Care Provider [phone] Ruthie Narvaez NP Unavailable [phone] Unallocated, [facility] Provider Primary Care Provi maricruz Vickey English MD Primary Care Provider [phone] Encounter Details Date Type Department Care Team (Late st Contact Info) Description 08/02/2023 Clinisync Result Encounter [facility] Unsolicited [...] week 07/06/2023 How often do you attend [facility] or rastafarian services? More than 4 times per year 07/06/2023 Do you belong to any clubs o r organizations such as amish groups, unions, fraternal or athletic groups, or [...] Recorded Patient Health Questionnaire-2 Score 0 07/06/2023 [facility] - Occupational Stress [...] place to sleep or slept in a fdc (including now)? No 07/06/2023 Comments Unknown Sex [...] Comments VASC US CAROTID ARTERY DUPLEX BILATERAL 08/02/2023 10:39 AM EST documented in this encounter Results * Vascular US carotid artery duplex bilateral (08/02/2023 10:39 AM EST) Anatomical Region Laterality Modality Neck Ultrasound 08/02/2023 10:3 9 AM EST Narrative 08/02/2023 10:41 [place] [address] Ultrasound Report Signed Patient: NETO SHARP MR#: [id number] : 1935 Acct:[id number] Age/Sex: 88 / F ADM Date: 08/02/23 Loc: US Attending Dr: Non-Staff Physician Batres Ordering Physician: Rita Rey M.D. 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 TECHNIQUE: Duplex Doppler ultrasound analysis of carotid and vertebral arteries. . Bilateral carotid arterial duplex examination was performed using B-mode, color flow and spectral analysis. Carotid stenosis is reported according to validated velocity parameters, similar to NASCET criteria. FINDINGS: RIGHT CAROTID ARTERY Mild atherosclerotic plaque Subclavian: PSV: 107.3 cm/s cm/s EDV: 11.1 cm/s cm/s CCA: Prox: PSV: 104.8 cm/s cm/s EDV: 11.1 cm/s cm/s Mid: PSV: 82.3 cm/s cm/s EDV: 9.8 cm/s cm/s Distal: PSV: 64.4 cm/s cm/s EDV: 8.4 cm/s cm/s BULB: PSV: 32.9 cm/s cm/s EDV: 5.4 cm/s cm/s ICA: Prox: PSV: 85.6 cm/s cm/s EDV: 17.5 cm/s cm/s Mid: PSV: 88.9 cm/s cm/s EDV: 20.8 cm/s cm/s Distal: PSV: 68.8 cm/s cm/s EDV: 19.3 cm/s cm/s ECA: PSV: 87.4 cm/s cm/s EDV: 5.1 cm/s cm/s VERTEBRAL: PSV: 59.9 cm/s cm/s EDV: 7.2 cm/s cm/s, antegrade ICA/CCA ratio: PSV: 1.4 EDV: 2.5 LEFT CAROTID ARTERY Mild atherosclerotic plaque Subclavian: PSV: 101.7 cm/s cm/s EDV: 6.7 cm/s CCA: Prox: PSV: 96.3 cm/s cm/s EDV: 10.7 cm/s Mid: PSV: 97.9 cm/s cm/s EDV: 13.9 cm/s Distal: PSV: 86.6 cm/s cm/s EDV: 5.8 cm/s BULB: PSV: 62.2 cm/s cm/s EDV: 9.5 cm/s ICA: Prox: PSV: 74.3 cm/s cm/s EDV: 14.9 cm/s Mid: PSV: 80.9 cm/s cm/s EDV: 17.1 cm/s Distal: PSV: 97.4 cm/s cm/s EDV: 20.4 cm/s ECA: PSV: 90.7 cm/s cm/s EDV: 7.3 cm/s VERTEBRAL: PSV: 64.4 cm/s cm/s EDV: 16.0 cm/s , antegrade ICA/CCA ratio: PSV: 1.1 EDV: 3.5 Anechoic echogenicity the right thyroid lobe measuring 4.4 cm US/US carotid duplex BI IMPRESSION: 0-49% flow stenosis bilateral internal carotid arteries Spectral Doppler US Thresholds (Reference: Marciano EG, et al. Radiology 2000; 214:247-252) Stenosis (%) PSV (cm/sec) VICA/VCCA 0-49 <150 <2.5 50-69 150-225 2.5-4.0 >70 >225 >4.0 Electronically authenticated by: ROBSON ROCHA Date: 08/02/2023 10:39 Dictated By: Robson Rocha M.D. Signed By: 08/02/23 1041 DD/ 1039 TD/TT: Looping Machine Operator: Procedure Note Radiology, Radiologist, - 08/02/2023 [place] [address] Ultrasound Report Signed Patient: NETO SHARP AMR#: [id number] : 1935cct:[id number] Age/Sex: 88 / FADM Date: 08/02/23 Loc: US Attending Dr: Bessy-Staff Physician Batres Ordering Physician: Rita Rey M.D. Date of Service: 08/02/23 Procedure(s): US carotid duplex BI Accession Number(s): [id number] cc: Shaikh Medardo Simon; Rita Rey M.D. 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 TECHNIQUE: Duplex Doppler ultrasound analysis of carotid and vertebral arteries. . Bilateral carotid arterial duplex examination was performedusing B-mode, color flow and spectral analysis. Carotid stenosis is reported according to validated velocity parameters, similar to NASCET criteria. FINDINGS: RIGHT CAROTID ARTERY Mild atherosclerotic plaque Subclavian: PSV: 107.3 cm/s cm/s EDV: 11.1 cm/s cm/s CCA: Prox: PSV: 104.8 cm/s cm/s EDV: 11.1 cm/s cm/s Mid: PSV: 82.3 cm/s cm/s EDV: 9.8 cm/s cm/s Distal: PSV: 64.4 cm/s cm/s EDV: 8.4 cm/s cm/s BULB: PSV: 32.9 cm/s cm/s EDV: 5.4 cm/s cm/s ICA: Prox: PSV: 85.6 cm/s cm/s EDV: 17.5 cm/s cm/s Mid: PSV: 88.9 cm/s cm/s EDV: 20.8 cm/s cm/s Distal: PSV: 68.8 cm/s cm/s EDV: 19.3 cm/s cm/s ECA: PSV: 87.4 cm/s cm/s EDV: 5.1 cm/s cm/s VERTEBRAL: PSV: 59.9 cm/s cm/s EDV: 7.2 cm/s cm/s, antegrade ICA/CCA ratio: PSV: 1.4 EDV: 2.5 LEFT CAROTID ARTERY Mild atherosclerotic plaque Subclavian: PSV: 101.7 cm/s cm/s EDV: 6.7 cm/s CCA: Prox: PSV: 96.3 cm/s cm/s EDV: 10.7 cm/s Mid: PSV: 97.9 cm/s cm/s EDV: 13.9 cm/s Distal: PSV: 86.6 cm/s cm/s EDV: 5.8 cm/s BULB: PSV: 62.2 cm/s cm/s EDV: 9.5 cm/s ICA: Prox: PSV: 74.3 cm/s cm/s EDV: 14.9 cm/s Mid: PSV: 80.9 cm/s cm/s EDV: 17.1 cm/s Distal: PSV: 97.4 cm/s cm/s EDV: 20.4 cm/s ECA: PSV: 90.7 cm/s cm/s EDV: 7.3 cm/s VERTEBRAL: PSV: 64.4 cm/s cm/s EDV: 16.0 cm/s , antegrade ICA/CCA ratio: PSV: 1.1 EDV: 3.5 Anechoic echogenicity the right thyroid lobe measuring 4.4 cm US/US carotid duplex BI IMPRESSION: 0-49% flow stenosis bilateral internal carotid arteries Spectral Doppler US Thresholds (Reference: Marciano EG, et al. [id number]; 214:247-252) Stenosis (%) PSV (cm/sec) VICA/VCCA 0-49 <150 <2.5 50-69 150-225 2.5-4.0 >70 >225 >4.0 Electronically authenticated by: ROBSON ROCHA Date: 08/02/2023 10:39 Dictated By: Robson Rocha M.D. Signed By:08/02/23 1041 DD/ 1039 TD/TT: Looping Machine Operator: us Generic External Data Provider IMG US PROCEDURES Final Result documented in this encounter Visit Diagnoses Not on filedocumented in this encounter Care Teams Triage Licensed Practical Nurse Relationship Specialty Start Date End Date Kanwal Bo MD [address], [place] [id number] PCP - Devoted 07/24/22 Shaikh Simon MD [address], [place] [id number] PCP - General Internal Medicine 01/25/23 01/08/24 Shaikh Simon MD [address] [place] [id number] PCP - General Internal Medicine 01/09/24 03/03/24 Vickey English MD [address] [place] [id number] PCP - General Family Medicine 03/04/24 05/07/24 Unallocated, [facility] Provider, [address] [place] [address] PCP - General Family Medicine 05/08/24 05/22/24 Vickey English MD [address] [place] [phone] PCP - General Family Medicine 05/23/24 Ruthie Narvaez NP [address] [place] [id number] Nurse Practitioner Family Medicine 03/04/24 10/09/24 documented as of this encounter
--- OUTSIDE RECORDS SUMMARY | 2025-04-08 09:23 | XMS_ITS | CCD ---
Author Organization [facility] Informat ion [facility] Care Team Providers Care Resident Hall Director Name Role Phone SHAIKH SIMON Primary Care [...] MEDRAN[employer] Consulting Unavailable Kanwal Bo MD Unavailable Solange ZELAYA, Ruthie Unavailable Unallocated Yojana VEGAS Provider Primary Care Provi maricruz Vickey Li MD Primary Care Provider [phone] Jonathan Han Attending Unavailable Vickey Li MD Primary Care Provider [phone] Ruthie Narvaez NP Unavailable VICKEY LI Attending Unavailable VICKEY LI Attending Unavailable SHAIKH SIMON Attending Unavailable RUTHIE NARVAEZ Attending UnavailSANDRA Hernández Attending Unavailable SANDRA RAE Attending Unavailable Medications Current Medications Medication Drug Class(es) Dates Sig (Normalized) Sig (Original) acetaminophen 325 mg / oxyCODONE hydrochloride 5 mg oral tablet (20 sources) Opioid Agonist Start: 01-30-2025 take 1 tablet by mouth once oxyCODONE-acetamin ophen (Percocet) 5-325 MG tablet Indications: Chronic knee pain after total replacement of both knee joints Take 1 tablet by mouth every 12 (twelve) hours if needed for severe pain 60 tablet 01/30/2025 Active Start: 12-13-2024 End: 01-30-2025 take 1 tablet by mouth once oxyCODONE-acetaminophen (Percocet) 5-325 MG tablet Indications: Chronic knee pain after total replacement of both knee joints Take 1 tablet by mouth every 12 (twelve) hours if needed for severe pain 60 tablet 12/13/2024 01/30/2025 Discontinued (Reorder) Start: 05-27-2024 End: 10-10-2024 take 1 tablet by mouth once oxyCODONE-acetaminophen (Percocet) 5-325 MG tablet Indications: Chronic knee pain after total replacement of both knee joints Take 1 tablet by mouth every 12 (twelve) hours if needed for severe pain 60 tablet 10/10/2024 Active Start: 04-10-2024 End: 05-27-2024 take 1 tablet by mouth every six hours for pain oxyCODONE-acetaminophen (Percocet) 5-325 MG tablet Indications: Chronic knee pain after total replacement of both knee joints Take 1 tablet by mouth every 6 (six) hours if needed for severe pain for up to 5 days 15 tablet 04/10/2024 04/15/2024 Active alendronic acid 35 mg oral tablet (4 sources) Bisphosphonate End: 04-10-2024 alendronate (Fosamax) 35 MG tablet Take 35 mg by mouth every 7 (seven) days 04/10/2024 Discontinued (Therapy completed) amLODIPine 10 mg oral tablet (20 sources) Dihydropyridine Calcium Channel Fly Start: 01-09-2024 End: 10-22-2024 take 1 tablet by mouth once daily amLODIPine (Norvasc) 10 MG tablet Indications: Essential (primary) hypertension Take 1 tablet (10 mg) by mouth Daily 90 tablet 1 10/22/2024 Active carvedilol 12.5 mg oral tablet (20 sources) alpha-Adrenergic Fly, beta-Adrenergic Fly Start: 01-09-2024 End: 10-22-2024 take 1 tablet by mouth once carvedilol (Coreg) 12.5 MG tablet Indications: Essential (primary) hypertension Take 1 tablet (12.5 mg) by mouth every 12 (twelve) hours 180 tablet 1 10/22/2024 Active fexofenadine hydrochloride 180 mg oral tablet (20 sources) Histamine-1 Receptor Antagonist Start: 09-09-2024 End: 07-20-2025 take 1 tablet by mouth once daily as needed fexofenadine (Tiana) 180 MG tablet Indications: Chronic allergic rhinitis Take 1 tablet (180 mg) by mouth Daily as needed (Allergies) 90 tablet 01/21/2025 07/20/2025 Active Start: 01-09-2024 End: 09-06-2024 take 1 tablet by mouth once daily as needed fexofenadine (Tiana) 180 MG tablet Indications: Chronic allergic rhinitis Take 1 tablet (180 mg) by mouth Daily as needed (Allergies) 90 tablet 1 01/09/2024 09/06/2024 Discontinued (Reorder) fluticasone propionate 0.5 mg/ml topical lotion (7 sources) Corticosteroid End: 05-22-2024 fluticasone (Cutivate) 0.05 % lotion Apply 1 application topically in the morning. 05/22/2024 Discontinued (Therapy completed) furosemide 20 mg oral tablet (20 sources) Loop Diuretic Start: 01-21-2025 End: 07-20-2025 take 1 tablet by mouth once daily furosemide (Lasix) 20 MG tablet Indications: Essential (primary) hypertension Take 1 tablet (20 mg) by mouth Daily 90 tablet 1 01/21/2025 07/20/2025 Active Start: 07-15-2024 End: 01-11-2025 take 1 tablet by mouth once daily furosemide (Lasix) 20 MG tablet Indications: Essential (primary) hypertension Take 1 tablet (20 mg) by mouth Daily 90 tablet 1 07/15/2024 Active Start: 01-09-2024 End: 07-12-2024 take 1 tablet by mouth once daily furosemide (Lasix) 20 MG tablet Indications: Essential (primary) hypertension (CMS/HCC) Take 1 tablet (20 mg) by mouth Daily 90 tablet 1 01/09/2024 07/12/2024 Discontinued (Reorder) gabapentin 100 mg oral capsule (20 sources) Anti-epileptic Agent Start: 07-15-2024 End: 01-17-2025 take 1 capsule by mouth in the morning, then take 1 capsule by mouth in the evening, then take 1 capsule by mouth at bedtime gabapentin (Neurontin) 100 MG capsule Indications: Type 2 diabetes mellitus with diabetic polyneuropathy, without long-term current use of insulin (HCC) TAKE 1 CAPSULE BY MOUTH IN THE MORNING then TAKE 1 CAPSULE BY MOUTH IN THE EVENING then TAKE 1 CAPSULE BY MOUTH BEFORE bedtime 270 capsule 01/17/2025 Active Start: 10-25-2023 End: 07-12-2024 take 1 capsule by mouth in the [...] CAPSULE AT BEDTIME 270 capsule 1 10/25/2023 07/12/2024 Discontinued (Reorder) levothyroxine sodium 0.075 mg oral tablet (20 sources) l-Thyroxine Start: 01-09-2024 End: 10-22-2024 take 1 tablet by mouth once daily levothyroxine (Synthroid, Levoxyl) 75 MCG tablet Indications: Hypothyroidism, unspecified Take 1 tablet (75 mcg) by mouth Daily 90 tablet 1 10/22/2024 Active losartan potassium 100 mg oral tablet (20 sources) Angiotensin 2 Receptor Fly Start: 01-09-2024 End: 10-22-2024 take 1 tablet by mouth once daily losartan (Cozaar) 100 MG tablet Indications: Essential (primary) hypertension Take 1 tablet (100 mg) by mouth Daily 90 tablet 1 10/22/2024 Active metFORMIN hydrochloride 500 mg oral tablet (19 sources) Biguanide Start: 01-09-2024 End: 10-22-2024 take 1 tablet by mouth in the morning metFORMIN (Glucophage) 500 MG tablet Indications: Type 2 diabetes mellitus without complications Take 1 tablet (500 mg) by mouth in the morning and 1 tablet (500 mg) before bedtime. 180 tablet 1 10/22/2024 Active phentermine hydrochloride 37.5 mg oral tablet (3 sources) Sympathomimetic Amine Anorectic Start: 10-10-2024 End: 11-09-2024 take 31-31.9 tablets by mouth before mealtime phentermine (Adipex-P) 37.5 MG tablet Indications: Class 1 obesity due to excess calories with serious comorbidity and body mass index (BMI) of 31.0 to 31.9 in adult Take 1 tablet (37.5 mg) by mouth in the morning. Take before meals. 30 tablet 10/10/2024 11/09/2024 Active sertraline 50 mg oral tablet (20 sources) Serotonin Reuptake Inhibitor Start: 01-21-2025 End: 07-20-2025 take 1.5 tablets by mouth once daily sertraline (Zoloft) 50 MG tablet Indications: Recurrent major depressive disorder, in full remission Take 1.5 tablets (75 mg) by mouth Daily 135 tablet 1 01/21/2025 07/20/2025 Active Start: 07-15-2024 End: 01-11-2025 take 1.5 tablets by mouth once daily sertraline (Zoloft) 50 MG tablet Indications: Recurrent major depressive disorder, in full remission Take 1.5 tablets (75 mg) by mouth Daily 135 tablet 1 07/15/2024 Active Start: 01-09-2024 End: 07-12-2024 take 1.5 tablets by mouth once daily sertraline (Zoloft) 50 MG tablet Indications: Recurrent major depressive disorder, in full remission (CMS/HCC) Take 1.5 tablets (75 mg) by mouth Daily 135 tablet 1 01/09/2024 07/12/2024 Discontinued (Reorder) simvastatin 20 mg oral tablet (20 sources) HMG-CoA Reductase Inhibitor Start: 01-21-2025 End: 07-20-2025 take 1 tablet by mouth at bedtime simvastatin (Zocor) 20 MG tablet Indications: Other hyperlipidemia Take 1 tablet (20 mg) by mouth at bedtime 90 tablet 1 01/21/2025 07/20/2025 Active Start: 07-15-2024 End: 01-11-2025 take 1 tablet by mouth at bedtime simvastatin (Zocor) 20 MG tablet Indications: Other hyperlipidemia Take 1 tablet (20 mg) by mouth at bedtime 90 tablet 1 07/15/2024 Active Start: 01-09-2024 End: 07-12-2024 take 1 tablet by mouth at bedtime simvastatin (Zocor) 20 MG tablet Indications: Other hyperlipidemia (CMS/HCC) Take 1 tablet (20 mg) by mouth at bedtime 90 tablet 1 01/09/2024 07/12/2024 Discontinued (Reorder) Problems Active Problems Problem Classification Problem Date Documented Date Episodic/Chronic Diabetes mellitus with complications (20 sources) Polyneuropathy due to type 2 diabetes mellitus; Translations: [Type 2 diabetes mellitus with diabetic polyneuropathy] Onset: 07-06-2023 07-06-2023 Chronic Diabetes mellitus without complication (20 sources) Type 2 diabetes mellitus without complications; Translations: [Type 2 diabetes mellitus without complication] Onset: 04-01-2022 Chronic Disorders of lipid metabolism (20 sources) Hyperlipidemia, unspecified; Translations: [Hyperlipidemia] Onset: 01-12-2022 07-08-2023 Chronic Essential hypertension (20 sources) Essential (primary) hypertension; Translations: [Essential hypertension] Onset: 11-10-2022 Resolved: 10-10-2024 07-06-2023 Chronic Gout and other crystal arthropathies (1 source) Gout, unspecified; Translations: [GOUT UNSPECIFIED] Onset: 01-12-2022 Chronic Mood disorders (20 sources) Major depressive disorder, single episode, unspecified; [...] Onset: 02-01-2022 Episodic Other non-traumatic joint disorders (20 sources) 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; Translations: [Pain in right knee] Onset: 07-06-2023 07-06-2023 Episodic Other nutritional; endocrine; and metabolic disorders (7 sources) Obesity caused by energy imbalance; Translations: [Class 1 obesity due to excess calories with serious comorbidity and body mass index (BMI) of 31.0 to 31.9 in adult] Onset: 10-10-2024 10-10-2024 Chronic Other upper respiratory disease (20 sources) Allergic rhinitis; Translations: [Allergic rhinitis, unspecified] Onset: 01-09-2024 01-09-2024 Chronic Other upper respiratory infections (1 source) Chronic maxillary sinusitis; Translations: [CHRONIC MAXILLARY SINUSITIS] Onset: 01-12-2022 Chronic Otitis media and related conditions (8 sources) Unspecified nonsuppurative otitis media, left ear; Translations: [Other specified disorders of Eustachian tube, left ear] Onset: 01-11-2022 Episodic Retinal detachments; defects; vascular occlusion; and retinopathy (20 sources) Exudative age-related macular degeneration; Translations: [Exudative age-related macular degeneration, bilateral, with active choroidal neovascularization] Onset: 07-08-2023 07-08-2023 Chronic Thyroid disorders (20 sources) Hypothyroidism, unspecified; Translations: [Hypothyroidism] Onset: 11-10-2022 Resolved: 10-10-2024 07-06-2023 Chronic Unclassified (3 sources) LOW BACK [...] Translations: [CARDIAC MURMUR UNSPECIFIED] Onset: 01-06-2022 Episodic Mood disorders (2 sources) Mood disorders Onset: 12-13-2024 12-13-2024 Other aftercare (1 source) Other field service representative (current) drug therapy; Translations: [OTH CARE HOME CURRENT DRUG THERAPY] Onset: 01-06-2022 Episodic Other [...] PANELon 05-31-2024 Anion gap [Moles/Vol] 13.5 mmol/L [facility] Calcium [Mass/Vol] 10 mg/dL 8.5 - 10. 1 mg/dL [facility] Chloride [Moles/Vol] 100 mmol/L 98 - 10 7 mmol/L [facility] CO2 [Moles/Vol] 26.6 mmol/L 21.0 - 32.0 mmol/L [facility] Creatinine [Mass/Vol] 1.12 mg/dL High 0.55 - 1.02 mg/dL [facility] GFR/1.73 sq M.predicted CKD-EPI (S/P/Bld) [Vol rate/Area] 56 Low >=60 mL/min/1.73m [address] [facility] Glucose [Mass/Vol] 121 mg/dL High 74 - 106 mg/dL NO [facility] Interpretation and review of laboratory results Abnormal [facility] Potassium [Moles/Vol] 5.1 mmol/L 3.5 - 5.1 mmol/L [facility] Sodium [Moles/Vol] 135 mmol/L Low 136 - 145 mmol/L [facility] EGFR-NON AF GAMBIAN 46 Low >=60 mL/min/1.73m [address] [facility] Urea nitrogen [Mass/Vol] 22 mg/dL High 7.0 - 18.0 mg/dL [facility] Urea nitrogen/Creatinine [Mass ratio] 19.6 mg/mg [facility] MLR HEMOGLOBIN A1Con 024 Glucose [Mass/Vol] 111 mg/dL [facility] HbA1c (Bld) [Mass fraction] 5.5 % 4.5 - 6.2 % [facility] Comment on above: ADA RECOMMENDED LIMI T 4.0 - 6.0 ADA THERAPEUTIC TARGET < 7.0 ACTION SUGGESTED > 7.0 No Panel Informationon 04-04 [facility] TB URINE T PROTEIN CREAT RA TIOon 04-04-2024 CREATININE URINE RANDOM 14.58 mg/dL Low 20.00 - 300.00 mg/dL [facility] Interpretation and review of laboratory results Abnormal [facility] Protein (U) [Mass/Vol] 9.6 mg/dL NINF - 11.9 mg/dL [facility] PROTEIN CREATININE RATIO URINE 0.[address] [facility] CBC W MANUAL DIFFon 11-08-19 23 ATYPICAL LYMPH # Normal [facility] Comment on above: Performed By: #### P OCGLUC #### [facility] [address] [address] [address] Germaina Cadena ATYPICAL LYMPH % Normal [facility] Comment on above: Performed By: #### P OCGLUC #### [facility] [address] [place] [address] Dr. Germania Cadena BAND # 0.0 103/ul Normal 0.0-0.3 [facility] Comment on above: Performed By: #### P OCGLUC #### [facility] [address] [place] [address] Dr. Germania Cadena BAND % 0 % Normal 0-5 [facility] Comment on above: Performed By: #### P OCGLUC #### [facility] [address] [place] [address] Dr. Germania Cadena BASOM # 0.00 103/ul Normal 0.00-0.10 [facility] Comment on above: Performed By: #### P OCGLUC #### [facility] [address] [place] [address] Dr. Germania Cadena BASOM % 0.0 % Critically low 0.2-2.0 [facility] Comment on above: Performed By: #### P OCGLUC #### [facility] [address] [place] [address] Dr. Germania Cadena BLAST # Normal [facility] Comment on above: Performed By: #### P OCGLUC #### [facility] [address] [place] [address] Dr. Germania Cadena BLAST % Normal [facility] Comment on above: Performed By: #### P OCGLUC #### [facility] [address] [place] [address] Dr. Germania Cadena CORRECTED WBC Normal 4.0-11.0 [facility] Comment on above: Performed By: #### P OCGLUC #### [facility] [address] [place] [address] Dr. Germania Cadena EOS # 0.25 103/ul Normal 0.00-0.70 [facility] Comment on above: Performed By: #### P OCGLUC #### [facility] [address] [place] [address] Dr. Germania Cadena EOS% 4.0 % Normal 0.9-7.0 [facility] Comment on above: Performed By: #### P OCGLUC #### [facility] [address] [place] [address] Dr. Germania Cadena HCT 34.6 % Critically low 36.0-48.0 [facility] Comment on above: Performed By: #### P OCGLUC #### [facility] [address] [address] [address] Germania Cadena HGB 11.5 g/dl Critically low 12.0-16.0 [facility] Comment on above: Performed By: #### P OCGLUC #### [facility] [address] [place] [address] Dr. Germania Cadena LYMPHM # 1.24 103/ul Normal 1.20-3.80 [facility] Comment on above: Performed By: #### P OCGLUC #### [facility] [address] [place] [address] Dr. Germania Cadena LYMPHM% 20.0 % Critically low 20.5-60.0 [facility] Comment on above: Performed By: #### P OCGLUC #### [facility] [address] [place] [address] Dr. Germania Cadena MCH 30.4 pg Normal 26.7-34.0 [facility] Comment on above: Performed By: #### P OCGLUC #### [facility] [address] [place] [address] Dr. Germania Cadena MCHC 33.2 g/dl Normal 29.9-35.2 [facility] Comment on above: Performed By: #### P OCGLUC #### [facility] [address] [address] [address] Germania Cadena MCV 91.5 fL Normal 81.0-99.0 [facility] Comment on above: Performed By: #### P OCGLUC #### [facility] [address] [place] [address] Dr. Germania Cadena METAMYELOCYTE # Normal [facility] Comment on above: Performed By: #### P OCGLUC #### [facility] [address] [address] [address] Germania Cadena METAMYELOCYTE % Normal [facility] Comment on above: Performed By: #### P OCGLUC #### [facility] [address] [address] [address] Germania Cadena MONOM# 0.25 103/ul Critically low 0.30-0.80 [facility] Comment on above: Performed By: #### P OCGLUC #### [facility] [address] [place] [address] Dr. Germania Cadena MONOM% 4.0 % Normal 1.7-12.0 [facility] Comment on above: Performed By: #### P OCGLUC #### [facility] [address] [place] [address] Dr. Germania Cadena MPV 9.9 fL Normal 9.5-13.5 [facility] Comment on above: Performed By: #### P OCGLUC #### [facility] [address] [place] [address] Dr. Germania Cadena MYELOCYTE # Normal [facility] Comment on above: Performed By: #### P OCGLUC #### [facility] [address] [place] [address] Dr. Germania Cadena MYELOCYTE % Normal [facility] Comment on above: Performed By: #### P OCGLUC #### [facility] [address] [place] [address] Dr. Germania Cadena NRBC Normal [facility] Comment on above: Performed By: #### P OCGLUC #### [facility] [address] [address] [address] Germania Cadena PLT 211 103/ul Normal 150-450 [facility] Comment on above: Performed By: #### P OCGLUC #### [facility] [address] [place] [address] Dr. Germania Cadena RBC 3.78 106/ul Critically low 4.20-5.40 [facility] Comment on above: Performed By: #### P OCGLUC #### [facility] [address] [address] [address] Germania Cadena RDW 12.6 % Normal 11.0-15.0 [facility] Comment on above: Performed By: #### P OCGLUC #### [facility] [address] [address] [address] Germania Cadena SEG # 4.46 103/ul Normal 1.40-6.50 [facility] Comment on above: Performed By: #### P OCGLUC #### [facility] [address] [address] [address] Germania Cadena SEG % 72.0 % Normal 43.0-75.0 [facility] Comment on above: Performed By: #### P OCGLUC #### [facility] [address] [address] [address] Germania Cadena WBC 6.2 103/ul Normal 4.0-11.0 [facility] Comment on above: Performed By: #### P OCGLUC #### [facility] [address] [address] [address] Germania Cadena GLYCOHEMOGLOBIN A1Con 2022 ADA RECOMMENDATION SEE BELOW Normal [facility] Comment on above: Result Comment: ADA RECOMMENDED LIMIT 4.0 - 6.0 ADA THERAPEUTIC TARGET < 7.0 ACTION SUGGESTED > 7.0 Performed By: #### A 1C #### [facility] [address] [place] [address] Dr. Germania Cadena Glucose [Mass/Vol] 114 mg/dL Normal [facility] Comment on above: Performed By: #### A 1C #### [facility] [address] [place] [address] Dr. Germania Cadena HbA1c (Bld) [Mass fraction] 5.6 % Normal 4.5-6.2 [facility] Comment on above: Performed By: #### A 1C #### [facility] [address] [place] [address] Dr. Germania Cadena PROF 14(COMP METB)on 023 Albumin [Mass/Vol] 3.3 g/dL Critically low 3.4-5.0 [facility] Comment on above: Performed By: #### P OCGLUC #### [facility] [address] [address] [address] Germania Cadena Albumin/Globulin [Mass ratio] 0.9 {ratio} Normal [facility] Comment on above: Performed By: #### P OCGLUC #### [facility] [address] [address] [address] Germania Cadena ALP [Catalytic activity/Vol] 91 U/L Normal 46-116 [facility] Comment on above: Performed By: #### P OCGLUC #### [facility] [address] [address] [address] Germania Cadena ALT [Catalytic activity/Vol] 40 U/L Normal 14-59 [facility] Comment on above: Performed By: #### P OCGLUC #### [facility] [address] [address] [address] Germania Cadena Anion gap [Moles/Vol] 11.1 mmol/L Normal [facility] Comment on above: Performed By: #### P OCGLUC #### [facility] [address] [address] [address] Germania Cadena AST [Catalytic activity/Vol] 22 U/L Normal 15-37 [facility] Comment on above: Performed By: #### P OCGLUC #### [facility] [address] [address] [address] Germania Cadena Bilirubin [Mass/Vol] 0.2 mg/dL Normal 0.2-1.0 [facility] Comment on above: Performed By: #### P OCGLUC #### [facility] [address] [address] [address] Germania Cadena Calcium [Mass/Vol] 9.2 mg/dL Normal 8.5-10.1 [facility] Comment on above: Performed By: #### P OCGLUC #### [facility] [address] [address] [address] Germania Cadena Chloride [Moles/Vol] 101 mmol/L Normal 98-107 [facility] Comment on above: Performed By: #### P OCGLUC #### [facility] [address] [address] [address] Germania Cadena CO2 [Moles/Vol] 28.8 mmol/L Normal 21.0-32.[address] [facility] Comment on above: Performed By: #### P OCGLUC #### [facility] [address] [address] [address] Germania Cadena Creatinine [Mass/Vol] 0.85 mg/dL Normal 0.55-1.02 [facility] Comment on above: Performed By: #### P OCGLUC #### [facility] [address] [address] [address] Germania Cadena EGFR-AF GAMBIAN >60 Normal >=[address] [facility] Comment on above: Performed By: #### P OCGLUC #### [facility] [address] [place] [address] Dr. Germania Cadena EGFR-NON AF GAMBIAN >60 Normal >=60 [facility] Comment on above: Performed By: #### P OCGLUC #### [facility] [address] [address] [address] Germania Cadena Globulin (S) [Mass/Vol] 3.7 g/dL Normal [facility] Comment on above: Performed By: #### P OCGLUC #### [facility] [address] [address] [address] Germania Cadena Glucose [Mass/Vol] 106 mg/dL Normal 74-106 [facility] Comment on above: Performed By: #### P OCGLUC #### [facility] [address] [address] [address] Germania Cadena Potassium [Moles/Vol] 4.3 mmol/L Normal 3.5-5.1 [facility] Comment on above: Performed By: #### P OCGLUC #### [facility] [address] [place] [address] Dr. Germania Cadena Protein [Mass/Vol] 7.0 g/dL Normal 6.4-8.2 [facility] Comment on above: Performed By: #### P OCGLUC #### [facility] [address] [place] [address] Dr. Germania Cadena Sodium [Moles/Vol] 137 mmol/L Normal 136-145 [facility] Comment on above: Performed By: #### P OCGLUC #### [facility] [address] [place] [address] Dr. Germania Cadena Urea nitrogen [Mass/Vol] 15.0 mg/dL Normal 7.0-18.0 [facility] Comment on above: Performed By: #### P OCGLUC #### [facility] [address] [place] [address] Dr. Germania Cdaena Urea nitrogen/Creatinine [Mass ratio] 17.6 mg/mg Normal [facility] Comment on above: Performed By: #### P OCGLUC #### [facility] [address] [place] [address] Dr. Germania Cadena TSHon 11-07-2022 TSH 2.051 uIU/mL Normal 0.358-3.740 [facility] Comment on above: Performed By: #### P OCGLUC #### [facility] [address] [place] [address] Dr. Germania Cadena MICROALBUMIN URINEon 022 Albumin, Urine 24.8 ug/mL Normal Not Estab. [facility] Comment on above: Performed By: #### M ALBLC #### [facility] [address] [place] [address] Dr. Germania Cadena CBC AUTO DIFFon 04-01-2022 BASO # 0.1 103/ul Normal 0.0-0.1 [facility] Comment on above: Performed By: #### C BC #### [facility] [address] [place] [address] Dr. Germania Cadena Basophils/100 WBC (Bld) 1.0 % Normal 0.2-2.0 [facility] Comment on above: Performed By: #### C BC #### [facility] [address] [place] [address] Dr. Germania Cadena EO # 0.3 103/ul Normal 0.0-0.7 [facility] Comment on above: Performed By: #### C BC #### [facility] [address] [place] [address] Dr. Germania Cadena Eosinophils/100 WBC (Bld) 4.5 % Normal 0.9-7.0 [facility] Comment on above: Performed By: #### C BC #### [facility] [address] [place] [address] Dr. Germania Cadena Erythrocyte distribution width (RBC) [Ratio] 12.5 % Normal 11.0-15.0 [facility] Comment on above: Performed By: #### C BC #### [facility] [address] [place] [address] Dr. Germania Cadena Hematocrit (Bld) [Volume fraction] 35.7 % Critically low 36.0-48.0 [facility] Comment on above: Performed By: #### C BC #### [facility] [address] [place] [address] Dr. Germania Cadena Hemoglobin (Bld) [Mass/Vol] 11.8 g/dL Critically low 12.0-16.0 [facility] Comment on above: Performed By: #### C BC #### [facility] [address] [place] [address] Dr. Germania Cadena IG # 0.01 10e3/ul Normal 0.00-0.03 [facility] Comment on above: Performed By: #### C BC #### [facility] [address] [place] [address] Dr. Germania Cadena IG % 0.2 % Normal 0.0-0.5 [facility] Comment on above: Performed By: #### C BC #### [facility] [address] [place] [address] Dr. Germania Cadena LYMPH # 1.6 103/ul Normal 1.2-3.8 [facility] Comment on above: Performed By: #### C BC #### [facility] [address] [place] [address] Dr. Germania Cadena Lymphocytes/100 WBC (Bld) 26.9 % Normal 20.5-60.0 [facility] Comment on above: Performed By: #### C BC #### [facility] [address] [place] [address] Dr. Germania Cadena MANUAL DIFF REQ NO Normal [facility] Comment on above: Performed By: #### C BC #### [facility] [address] [place] [address] Dr. Germania Cadena MCH (RBC) [Entitic mass] 30.6 pg Normal 26.7-34.0 [facility] Comment on above: Performed By: #### C BC #### [facility] [address] [place] [address] Dr. Germania Cadena MCHC (RBC) [Mass/Vol] 33.1 g/dL Normal 29.9-35.2 [facility] Comment on above: Performed By: #### C BC #### [facility] [address] [place] [address] Dr. Germania Cadena MCV (RBC) [Entitic vol] 92.5 fL Normal 81.0-99.0 [facility] Comment on above: Performed By: #### C BC #### [facility] [address] [place] [address] Dr. Germania Cadena MONO # 0.5 103/ul Normal 0.3-0.8 [facility] Comment on above: Performed By: #### C BC #### [facility] [address] [place] [address] Dr. Germania Cadena Monocytes/100 WBC (Bld) 8.2 % Normal 1.7-12.0 [facility] Comment on above: Performed By: #### C BC #### [facility] [address] [place] [address] Dr. Germania Cadena NEUT # 3.6 103/ul Normal 1.4-6.5 [facility] Comment on above: Performed By: #### C BC #### [facility] [address] [place] [address] Dr. Germania Cadena Neutrophils/100 WBC (Bld) 59.2 % Normal 43.0-75.0 [facility] Comment on above: Performed By: #### C BC #### [facility] [address] [place] [address] Dr. Germania Cadena Platelet mean volume (Bld) [Entitic vol] 10.9 fL Normal 9.5-13.5 [facility] Comment on above: Performed By: #### C BC #### [facility] [address] [place] [address] Dr. Germania Cadena PLT 254 103/ul Normal 150-450 [facility] Comment on above: Performed By: #### C BC #### [facility] [address] [address] [address] Germania Cadena RBC 3.86 106/ul Critically low 4.20-5.40 [facility] Comment on above: Performed By: #### C BC #### [facility] [address] [place] [address] Dr. Germania Cadena WBC 6.0 103/ul Normal 4.0-11.0 [facility] Comment on above: Performed By: #### C BC #### [facility] [address] [place] [address] Dr. Germania Caedna CREATININE URINEon URINE CREAT 40.38 mg/dL Normal 20.00-300.00 [facility] Comment on above: Performed By: #### C REAU #### [facility] [address] [place] [address] Dr. Germania Cadena GLYCOHEMOGLOBIN A1Con 2021 ADA RECOMMENDATION SEE BELOW Normal [facility] Comment on above: Result Comment: ADA RECOMMENDED LIMIT 4.0 - 6.0 ADA THERAPEUTIC TARGET < 7.0 ACTION SUGGESTED > 7.0 Performed By: #### A 1C #### [facility] [address] [place] [address] Dr. Germania Cadena Glucose [Mass/Vol] 117 mg/dL Normal [facility] Comment on above: Performed By: #### A 1C #### [facility] [address] [place] [address] Dr. Germania Cadena HbA1c (Bld) [Mass fraction] 5.7 % Normal 4.5-6.2 [facility] Comment on above: Performed By: #### A 1C #### [facility] [address] [address] [address] Germania Cadena PROF CHEM 8 (BAS METB)on Anion gap [Moles/Vol] 14.6 mmol/L Normal [facility] Comment on above: Performed By: #### B MP #### [facility] [address] [place] [address] Dr. Germania Cadena Calcium [Mass/Vol] 9.8 mg/dL Normal 8.5-10.1 [facility] Comment on above: Performed By: #### B MP #### [facility] [address] [address] [address] Germania Cadena Chloride [Moles/Vol] 97 mmol/L Critically low 98-107 [facility] Comment on above: Performed By: #### B MP #### [facility] [address] [place] [address] Dr. Germania Cadena CO2 [Moles/Vol] 29.9 mmol/L Normal 21.0-32.[address] [facility] Comment on above: Performed By: #### B MP #### [facility] [address] [place] [address] Dr. Germania Cadena Creatinine [Mass/Vol] 0.78 mg/dL Normal 0.55-1.02 [facility] Comment on above: Performed By: #### B MP #### [facility] [address] [place] [address] Dr. Germania Cadena EGFR-AF GAMBIAN >60 Normal >=[address] [facility] Comment on above: Performed By: #### B MP #### [facility] [address] [place] [address] Dr. Gemrania Cadena EGFR-NON AF GAMBIAN >60 Normal >=60 [facility] Comment on above: Performed By: #### B MP #### [facility] [address] [place] [address] Dr. Germania Cadena Glucose [Mass/Vol] 97 mg/dL Normal 74-106 [facility] Comment on above: Performed By: #### B MP #### [facility] [address] [place] [address] Dr. Germania Cadena Potassium [Moles/Vol] 4.5 mmol/L Normal 3.5-5.1 [facility] Comment on above: Performed By: #### B MP #### [facility] [address] [address] [address] Germania Cadena Sodium [Moles/Vol] 137 mmol/L Normal 136-145 [facility] Comment on above: Performed By: #### B MP #### [facility] [address] [address] [address] Germania Cadena Urea nitrogen [Mass/Vol] 12.0 mg/dL Normal 7.0-18.0 [facility] Comment on above: Performed By: #### B MP #### [facility] [address] [address] [address] Germania Cadena Urea nitrogen/Creatinine [Mass ratio] 15.4 mg/mg Normal [facility] Comment on above: Performed By: #### B MP #### [facility] [address] [address] [address] Germania Cadena XR LSPINE 2_3 VIEWSon [...] by: ALEJANDRO EDWARDS Date: 2022-01-28 18:12 Normal [facility] POINT OF CARE GLUCOSEon 06-2 Glucose [Mass/Vol] 112 mg/dL Critically high 74-106 [facility] Comment on above: Performed By: #### P OCGLUC #### [facility] [address] [address] [address] Germania Cadena Covid-19 PCR (CVDTBH)on 12-22 SARS-CoV-2 (COVID-19) RNA RONNIE+probe Ql (Unsp spec) Not detected Normal NOT DETECTED [facility] Comment on above: Result Comment: This test is not yet approved or cleared by the [place] FDA. When there are no FDA-approved or cleared tests available, and other criteria are met, FDA can make tests available under an emergency access mechanism called an Emergency Use Authorization (EUA). The EUA for this test is supported by the [place] of Health and Human Service's (HHS's) declaration [...] SARS-CoV-2. Performed By: #### C VDTBH #### [facility] [address] [place] [address] Dr. Germania Cadena CBC AUTO DIFFon 01-03-2022 BASO # 0.0 103/ul Normal 0.0-0.1 [facility] Comment on above: Performed By: #### C BC #### [facility] [address] [place] [address] Dr. Germania Cadena Basophils/100 WBC (Bld) 0.5 % Normal 0.2-2.0 [facility] Comment on above: Performed By: #### C BC #### [facility] [address] [place] [address] Dr. Germania Cadena EO # 0.1 103/ul Normal 0.0-0.7 [facility] Comment on above: Performed By: #### C BC #### [facility] [address] [place] [address] Dr. Germania Cadena Eosinophils/100 WBC (Bld) 1.8 % Normal 0.9-7.0 [facility] Comment on above: Performed By: #### C BC #### [facility] [address] [place] [address] Dr. Germania Cadena Erythrocyte distribution width (RBC) [Ratio] 13.1 % Normal 11.0-15.0 [facility] Comment on above: Performed By: #### C BC #### [facility] [address] [place] [address] Dr. Germania Cadena Hematocrit (Bld) [Volume fraction] 34.8 % Critically low 36.0-48.0 [facility] Comment on above: Performed By: #### C BC #### [facility] [address] [place] [address] Dr. Germania Cadena Hemoglobin (Bld) [Mass/Vol] 11.4 g/dL Critically low 12.0-16.0 [facility] Comment on above: Performed By: #### C BC #### [facility] [address] [place] [address] Dr. Germania Cadena IG # 0.02 10e3/ul Normal 0.00-0.03 [facility] Comment on above: Performed By: #### C BC #### [facility] [address] [place] [address] Dr. Germania Cadena IG % 0.3 % Normal 0.0-0.5 [facility] Comment on above: Performed By: #### C BC #### [facility] [address] [place] [address] Dr. Germania Cadena LYMPH # 1.0 103/ul Critically low 1.2-3.8 [facility] Comment on above: Performed By: #### C BC #### [facility] [address] [place] [address] Dr. Germania Cadena Lymphocytes/100 WBC (Bld) 13.1 % Critically low 20.5-60.0 [facility] Comment on above: Performed By: #### C BC #### [facility] [address] [place] [address] Dr. Germania Cadena MANUAL DIFF REQ NO Normal [facility] Comment on above: Performed By: #### C BC #### [facility] [address] [address] [address] Germania Cadena MCH (RBC) [Entitic mass] 30.8 pg Normal 26.7-34.0 [facility] Comment on above: Performed By: #### C BC #### [facility] [address] [address] [address] Germania Cadena MCHC (RBC) [Mass/Vol] 32.8 g/dL Normal 29.9-35.2 [facility] Comment on above: Performed By: #### C BC #### [facility] [address] [place] [address] Dr. Germania Cadena MCV (RBC) [Entitic vol] 94.1 fL Normal 81.0-99.0 [facility] Comment on above: Performed By: #### C BC #### [facility] [address] [place] [address] Dr. Germania Cadena MONO # 0.4 103/ul Normal 0.3-0.8 [facility] Comment on above: Performed By: #### C BC #### [facility] [address] [place] [address] Dr. Germania Cadena Monocytes/100 WBC (Bld) 5.5 % Normal 1.7-12.0 [facility] Comment on above: Performed By: #### C BC #### [facility] [address] [place] [address] Dr. Germania Cadena NEUT # 6.1 103/ul Normal 1.4-6.5 [facility] Comment on above: Performed By: #### C BC #### [facility] [address] [place] [address] Dr. Germania Cadena Neutrophils/100 WBC (Bld) 78.8 % Critically high 43.0-75.0 [facility] Comment on above: Performed By: #### C BC #### [facility] [address] [place] [address] Dr. Germania Cadena Platelet mean volume (Bld) [Entitic vol] 10.6 fL Normal 9.5-13.5 [facility] Comment on above: Performed By: #### C BC #### [facility] [address] [address] [address] Germania Cadena PLT 193 103/ul Normal 150-450 [facility] Comment on above: Performed By: #### C BC #### [facility] [address] [address] [address] Germania Cadena RBC 3.70 106/ul Critically low 4.20-5.40 [facility] Comment on above: Performed By: #### C BC #### [facility] [address] [address] [address] Germania Cadena WBC 7.8 103/ul Normal 4.0-11.0 [facility] Comment on above: Performed By: #### C BC #### [facility] [address] [place] [address] Dr. Germania Cadena PROF CHEM 8 (BAS METB)on Anion gap [Moles/Vol] 11.5 mmol/L Normal [facility] Comment on above: Performed By: #### B MP #### [facility] [address] [place] [address] Dr. Germania Cadena Calcium [Mass/Vol] 9.0 mg/dL Normal 8.5-10.1 [facility] Comment on above: Performed By: #### B MP #### [facility] [address] [place] [address] Dr. Germania Cadena Chloride [Moles/Vol] 99 mmol/L Normal 98-107 [facility] Comment on above: Performed By: #### B MP #### [facility] [address] [address] [address] Germania Cadena CO2 [Moles/Vol] 30.2 mmol/L Normal 21.0-32.0 [facility] Comment on above: Performed By: #### B MP #### [facility] [address] [place] [address] Dr. Germania Cadena Creatinine [Mass/Vol] 0.85 mg/dL Normal 0.55-1.02 [facility] Comment on above: Performed By: #### B MP #### [facility] [address] [address] [address] Germania Cadena EGFR-AF GAMBIAN >60 Normal >=60 [facility] Comment on above: Performed By: #### B MP #### [facility] [address] [address] [address] Germania Cadena EGFR-NON AF GAMBIAN >60 Normal >=60 [facility] Comment on above: Performed By: #### B MP #### [facility] [address] [address] [address] Germania Cadena Glucose [Mass/Vol] 110 mg/dL Critically high 74-106 [facility] Comment on above: Performed By: #### B MP #### [facility] [address] [address] [address] Germania Cadena Potassium [Moles/Vol] 4.7 mmol/L Normal 3.5-5.1 [facility] Comment on above: Performed By: #### B MP #### [facility] [address] [address] [address] Germania Cadena Sodium [Moles/Vol] 136 mmol/L Normal 136-145 [facility] Comment on above: Performed By: #### B MP #### [facility] [address] [address] [address] Germania Cadena Urea nitrogen [Mass/Vol] 23.0 mg/dL Critically high 7.0-18.0 [facility] Comment on above: Performed By: #### B MP #### [facility] [address] [address] [address] Germania Cadena Urea nitrogen/Creatinine [Mass ratio] 27.1 mg/mg Normal [facility] Comment on above: Performed By: #### B MP #### [facility] [address] [address] [address] Maxillofacial w/o Contras [...] M.D. Transcribed by: SHAY Technologist: BETTYE Mendez [facility] Coding Summary.on 12-27-2021 Coding Summary. CD:[id number] Gh0bWw+PGhlYWQ+PE1FV YDeX78tnBEtxI9LL5nFT Q0RKPSRVURDTE7KIR1hx DA2YFobY4OnbnMa BobaaYLgOE21OFl6VVS9 uBxfDNbmaA2hiXLhB0d8 XdJwEA96aM83FBnhWMIc LqW7KbRvdnmbjOUc D3ujQyZgwFYaLcb+PHRh YmxlIHdpZHRoPScxMDAl SjWfzRuzHL4eXc9cMMBd LWNvbGxhcHNlOiBj q8deWFHhXCspOI0hqCeq C4DitFK0XWSuf7y4Ma63 dHI+XOFvIRO5uIdtABym n204ZnOky3ceVQI8 yMTnRVxpQRP4R39gw3E0 AJWkBYBiWGK1hQT7tU2j aVgcvcsnX4XhaPCjKzM1 GNH7bGTieD7bpUll vtqxyX5cUni+R93AQE8C ZMDOVB2KYgu3J1OyNgfx dHI+IC37CPEdCJ52aQOo mCPgs2usxDy4DgWs WCTnDTV0yBrxZCohy1Fi BSSgJ06bqTAbv0D9BWEj bMxgxEFiPaRovJD3yF3x LPqrzrjsc8iuquow Nwjqp7dkse12mC14Q82b TMosFNVqFEG8HAPuAKFu xBhlpq3bgE3bWp9+IDxj y2hpd6oblGx1PuOs TNNdioCbvDnoVQE5b4Of Hp34R2DjhIlmy8LxQbh6 zh32sNGgw6V9kJA4SVhb AUXhtT4aBFmoMxF5 UGLbPrLmrE72rCFiBGeg Hy8ipKyqyQrwQI7lCKPl ooqpSSSskS1yTPQoqVSf wDtlVJ1nAHIrhcre t299DhQpKZS7WKGwsWXm K1PnxC1sCgUvUNDtGAAy G9XuaGGpULzoG161PXep DpD3CEFzqtDfF8Lt MXXhuTxzZuX9s9Z3Wa0T i9QdawdpDOJ2HWupUVW7 JeK1GpGoAmF5H3SnOct9 HHOrdUmeTQ4lR3Hr HXHknvuyqrkqaQQ9MPMs ZHZgtU15iPOiIUovBd1j b3U1f861VEOuJRVtnK06 Vu4rsRpgPBOxzINR wN4pgbfrd2fwsztxViLl YIZtBAw8DQp9YTCerVfn KoJmLJN0DdG4HWO4jGMv iL9ugZbclmnauA6g Oyc+T13guR9wZGY6DFG0 tvapUFOyyfRdQH48UA91 W8PnLrmjqOWlqQR+PGRp efTmxPjiGJ7hElHu a1whg2XfBEtcB5VyXLOa QLksPxw5WIZjTOS5bOO9 nA7vUEHpKHbjl9P6wYN1 C0DdesTyay4mg4zn TNZgZEhsB60hrAGcy5W5 TELvdZX0AJPrnOxpOzIm xB56Vww+VSNtcMixl2Ct Poomo8yqv0bskWa5 IjMwJSIgdmFsaWduPSJ0 m4ZcMm18D30oHFbfNYFs HYOaZISsCLLulVjxpb5o pY5fMw9+PGNvbCB3 zPT0iX8pGPTtRpU4GGws F629SvAkhIDgTfhmx0yu x3ifmUi9HdPqJQXltmDf yLvoOFE5f6ZxWx77 N93hIKbjRFAoCTDbVQZj BZLgzRbyhk1lvG9fFm4+ KR9xy0bqod23yD27pAA+ IXRaGXL2sQuqHJuu VMDibE1fQAmaZoO5ANDf AqFktC35vXSzBYhwWm9i sPwlaKweBO8pOHRnmihu t103WhBfv1zmFGLg wLJxMQlmTMF6I98ww8B7 BVHyGEZhHXM9mOL6qN5p bGlnbjogbGVmdDsgdmVy pUhzKMtpNGinV126 IHRvcDsnPlBhdGllbnQg BhRqHPy7T9YvXdq2DOWv bMxoON6meRGwOPmvHn8b sUyhlAajJX2pYXAe dsgiu285LlDfr8aaFVXi gBRnHKuwUEL2E59ti0A5 BUWbQUFzCLQ1wYQ5kS5m bGlnbjogbGVmdDsg vnXdnUhbMGrfVZxmQ783 IHRvcDsnPkJpcnRoIERh hPW0JD42UP77nXEty0Y5 pRM1W2OfLHBckspj czghdPC6IZMqRBApuS53 Wg9vnRaaWo8tBSKiCXY9 TERcqMUaH7CyqA0cUhLx CALfONVxW0UodXDk ICxgZ305TCraUmS9IPYl kxGmA8WxBWVjoEnfMfU5 f5N0Cc2GR9E3SY27WW28 iUKjp0S2hKG1L3Zs JKMajktjjbrcmWU7RMXz BOYgwM38Bv8psExySm9k IAZcRKM3SCIliLCoB1Jv yR1tObMsIYBkTXEb C1CnyRMjSRcxJ008FTrg RxV9GBJxnaHgK5DnAESs eGwkFqD5u3Q3Qq4XNQh0 GV53EZ47jOSpe5C1 rJQ6I7BdBLVhjktayenq nCZ3IWMxFPHupS40Ku9u lKwkLg2zJHKqNJO6PXUi mGMhV9CefZ4wKjOc COIzAWCwK7ZndIKwLSho S014COlqWrZ7FISdzpZj X2CnLVJnzPtvDwA1g1M6 Jc3QGZVcJG34BZQ6 gFV1TT00BP14M0DoAijf dGFibGU+PHRhYmxlIHdp ZHRoPScxMDAlJyBzdHls JL6mJy5gZOLeYQZi hVzflICkQzNwx5inBIHl QJfzUF9teAotS3TtiKI1 GOGwf6w1Ru25D38lO2Pv dXA+CAVkgXH3sUP1 hL7zDuTzXjK0OVksK067 WbKupEQtCdlrb9vmu9ke nXw4PiH2JKSdwfXjpDxi KFA6c5ZdQs93X36j IHdpZHRoPSIxNSUiIHZh yGnduz3zuU5xQc3+PGNv vXQ5cQU8mI9lIhWuKhD5 BDjrX186LkSsgHZv Ujvdi9sgc4ntaGt0ZwMq DHTgtqAfyQkrSBQ9x1Zr Br13Q0ZejSgem2EhWvd3 qy24pWElu2E8xAL8 Z1UaQGLirccfvKZmrTlv FZ1bYSOwbstqEWHnwF3i DNBcC0x0GyArWyZ5FTfm Y4BqqrY2LIEukJAh WRoeRJW6F19mu5E6KTCw LLVnIHO8fSL4hE3tnBkn bjogbGVmdDsgdmVydGlj LFjqXEhdC920UANc qKocARAcwC2kSYWkuKWc hFlwLW1eODGqhampIoIN YT5KSM1XTAmKWIFEUZOI FKEUDPRNIO23IP67 zLXsl9A1iHW3U5RlDZIv oatkolvhmAJ6BWMeCIYb wX68qBDwATglTw9lp5T8 n989NFJxUENcfK94 Qm6utXwsTMSodRWWzF8i vigxj6gwylqdMgWuEKNr CUi3RNq1FTXefJswUqYm DTU9DfY7PNZ8hXRm cR1sxWttetggdA5fMwo+ MTEvMjYvMTkzNzwvdGQ+ PCNbWTP1vWulYCsqMUZe eI3dIDVpG1i6HsXk AmJ5KAasV0PdUGVgcqbr Ss31sJ9iGlYnGdC1KEcp D1TdzcB5LYDbkSGqCWqi MVG0C45aq5B8SRFh IUKzBHM8oMC2dU8jyAao bjogbGVmdDsgdmVydGlj SAlrLIgqR639TCXybWmc Frq9MLkfIQKtQX11 ZA14aNYco9M3sNU5H5Zk FWAdavmmergfiKA8URRz ISOmpG27uEJzHIbrRm5q v9S3m859QACvKOUn zT30Cm9xtBtjPODftCCK hY7fbvixy3urmxqaLaUi POYjSRc3RNm0WNFszMvu OaDbHEG9WkL8IUG6 nCCziX3niDntvylpmA3j Oyc+PsNzSXomON86ML58 yNQzi6A5wHJ6D6WiTJUu syitlwbdgKN7YSJm XWDjfG58tDKuSHraCo9o a4R7p421HDUpHOJrgA71 Bm9kfBmhIDVdxXAUuL2e auymn0rtfsnuEzFn NZKvJPh9JPy4HMTutWpv JqNsCOX7OtD6QLM4cSBm vG9skTeguambqX0hNak+ N5Y9nSJ9mCFxxMur dGQ+OD10we83E9CmGuhj Vcu4NNIsVAD1qJS6hT4a VNIxNVifg6Y4pEI5S0Pk sdYoip9ru4hlRUWh LTngL06yhUVhr6U2IMJe iYM2HGBlxSjkMkGyiZ02 Oyc+TUCfdEtuv9YdNjhf y1zpw5cjiWv8GqCx ANRoygBxvSgbWEU4t4Xc Xv05S99jUZeePOOsASVr HRAlTATolIgpar8gdC8j Ii8+KVBilID4aCD8 iB0jHzAqFgJ2YOabX994 RlSqpYLdIgvdr5qfg0kd iLi2DxKxOTWpptBxrCni ZWO0n8GsCm35T1Xy gJtys3OaArt5xk56iOMz m3J6jVO6H9WeVXIjunqo vBRoiObtTE1fHFEimiiv WBCaqL0oVPGrX4f0 RrQoIyD0VZjkZ7KviyU8 CQTjjJFhDNCitRHScL6b lrpvk2hgsrwiOdMcYBDi FPr0TKs9VMUrhIsq UmOoHIK6GpD4SIM2hTNw eH8nlFpstmnsyB9iYwf+ LNf4a0lzzLYeAJ1bjHH9 BE79AD55cZXul3Y6 aPV4D5JwMEHtcgwarjhq uUU1YEHuYMZdqB98Os1r bSmoWz2gBLVmUNA4KGLs cOOsC7HeyA2xMvVs VKYnEWXmA9IplSHlHRvz I836KWllGlS5IQItigVp G7JuZYPlqWwwPuH5m4Q3 Dm3EMI88UM93DP52 sTPll6S6vDQ2L3RuFTVr jkywapqgaIX2MJGhZNWn oO46Xq7nuIxmPt1tCQTo GZN9LSMwfZYcF4Je wB6jGiIjYWGjSSYhP3Ob tJKlGDfxT218SAauYnW8 WCVqszXmX9YaKJGfrHwm GmJ3c5A6Lr6QIz32 MK02SI96rMLjw5M0oSC7 F5AiZKYjvjbarolafYA2 ZJZaKDVsxC40Wv9kxVmz Sl8mHEYnTTO3RHYx pGMgA9ThhU8iMwYlIYVu HMMnN0IbhUOjTYtuT274 STeiQtN2GISkrpRxD1Zf MZGuvRpiZnH0i2X9 Sr2FVMeydac2X9EzHbgd dHI+UF04WAJbSN35wPWi pOCrp3dteXx4AvToOMXi JTU4lGtgWGqbo5Ry ZXIt (more content not included)... Normal [facility] Consent for Treatmenton 0 Consent for Treatment [id number] #1.00CD:127 Normal [facility] Physician Orderon 12-09-2021 Physician Order [id number] #1.00CD:127 Normal [facility] Physician Orderon 11-22-2021 Physician Order [id number] #1.00CD:127 Normal [facility] CT TEMPORAL BONES WO CONon 0 11-12-2021 [...] by: Domenic GARVIN Date: 2021-11-12 16:16 Normal [facility] Vital Signs Date Time Vital Sign Value Performing Clinician Pj duran 10-10-2024 10: Body height 157.5 cm Vickey Li MD Work Phone: [facility] 10-10-2024 10:040 Body mass index (BMI) [Ratio] 31.28 kg/m2 Vickey Li MD Work Phone: [facility] 10-10-2024 10:01-0400 Body temperature 97.3 [degF] Vickey Li MD Work Phone: [facility] 10-10-2024 10:01-0400 Body weight 77.56 kg Vickey Li MD Work Phone: [facility] 10-10-2024 10:01-0400 Diastolic blood pressure 58 mm[Hg] Vickey Li MD Work Phone: [facility] 10-10-2024 10:01-0400 Heart rate 68 /min Vickey Li MD Work Phone: [facility] 10-10-2024 10:01-0400 Respiratory rate 20 /min Vickey Li MD Work Phone: [facility] 10-10-2024 10:01-0400 SaO2% (BldA) [Mass fraction] 99 % Vickey Li MD Work Phone: [facility] 10-10-2024 10:01-0400 Systolic blood pressure 132 mm[Hg] Vickey Li MD Work Phone: [facility] 07-09-2024 11:25-0500 Body height 157.5 cm Sandra Rae MD Work Phone: [facility] 07-09-2024 11:25-0500 Body mass index (BMI) [Ratio] 31.28 kg/m2 Sandra Rae MD Work Phone: [facility] 07-09-2024 11:25-0500 Body weight 77.56 kg Sandra Rae MD Work Phone: [facility] 07-09-2024 11:25-0500 Diastolic blood pressure 60 mm[Hg] Sandra Rae MD Work Phone: [facility] 07-09-2024 11:25-0500 Systolic blood pressure 161 mm[Hg] Sandra Rae MD Work Phone: [facility] 05-22-2024 11:10-0400 Body height 157.5 cm Sandra Rae MD Work Phone: [facility] 05-22-2024 11:10-0400 Body mass index (BMI) [Ratio] 31.28 kg/m2 Sandra Rae MD Work Phone: [facility] 05-22-2024 11:10-0400 Body weight 77.56 kg Sandra Rae MD Work Phone: [facility] 05-22-2024 11:10-0400 Diastolic blood pressure 60 mm[Hg] Sandra Rea MD Work Phone: [facility] 05-22-2024 11:10-0400 Systolic blood pressure 148 mm[Hg] Sandra Rae MD Work Phone: [facility] 04-10-2024 09:03-0400 Body height 157.5 cm Ruthie Narvaez BATCH OPERATOR Work Phone: [facility] 04-10-2024 09:03-0400 Body mass index (BMI) [Ratio] 31.09 kg/m2 Ruthie Narvaez BATCH OPERATOR Work Phone: [facility] 04-10-2024 09:03-0400 Body temperature 97.9 [degF] Ruthie Narvaez BATCH OPERATOR Work Phone: [facility] 04-10-2024 09:03-0400 Body weight 77.11 kg Ruthie Narvaez BATCH OPERATOR Work Phone: [facility] 04-10-2024 09:03-0400 Diastolic blood pressure 80 mm[Hg] Ruthie Narvaez BATCH OPERATOR Work Phone: [facility] Comment on above: RT ARM 168/78 04-10-2024 09:03-0400 Heart rate 64 /min Ruthie Narvaez BATCH OPERATOR Work Phone: [facility] Comment on above: 99% O2 04-10-2024 09:03-0400 Systolic blood pressure 160 mm[Hg] Ruthie Narvaez BATCH OPERATOR Work Phone: [facility] Comment on above: RT ARM 168/78 Encounters Encounter Date Encounter Type Care Provider Facility Start: 01-30-2025 End: 01-30-2025 Refill Vickey Li MD Work Phone: [facility] Comment on above: Chronic knee pain af ter total replacement of both knee joints Start: 01-17-2025 End: 01-17-2025 Refill Vickey Li MD Work Phone: [facility] Comment on above: Type 2 diabetes josh itus with diabetic polyneuropathy, without long-term current use of insulin (HCC) Start: 12-13-2024 End: 12-13-2024 ambulatory VICKEY LI Not Available Start: 10-22-2024 End: 10-22-2024 Refill Vickey Li MD Work Phone: [facility] Comment on above: Essential (primary) hypertension (CMS/HCC); Hypothyroidism, unspecified; Type 2 diabetes mellitus without complications; Type 2 diabetes mellitus with diabetic polyneuropathy, 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/HCC) Start: 10-10-2024 End: 10-10-2024 Bambo flowsheet Vickey Li MD Work Phone: [facility] Start: 10-10-2024 End: 10-10-2024 B[employer]ies Smil[employer] TaskRabbitheet Vickey Li MD Work Phone: [facility] Start: 10-10-2024 End: 10-10-2024 Office outpatient visit 25 minutes Vickey Li MD Work Phone: [facility] Comment on above: Type 2 diabetes josh itus without complication, without long- term current use of insulin (CMS/HCC) (Primary Dx); Essential (primary) hypertension (CMS/HCC); Type 2 diabetes mellitus with diabetic polyneuropathy, 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/HCC); MDD (major depressive disorder), recurrent episode, mild (HCC) (CMS/HCC); Chronic knee pain after total replacement of both knee joints; Class 1 obesity due to excess calories with serious comorbidity and body mass index (BMI) of 31.0 to 31.9 in adult; Type 2 diabetes mellitus with moderate nonproliferative diabetic retinopathy without macular edema, left eye ([facility]); Type 2 diabetes mellitus with moderate nonproliferative diabetic retinopathy with macular edema, right eye ([facility]) Start: 10-10-2024 End: 10-10-2024 ambulatory VICKEY LI Not Available Start: 09-06-2024 End: 09-09-2024 Refill Ruthie Narvaez BATCH OPERATOR Work Phone: [facility] Comment on above: Chronic allergic rhi nitis Start: 08-19-2024 End: 08-19-2024 Refill Marce Veliz MA [facility] Comment on above: Chronic knee pain af ter total replacement of both knee joints Start: 07-12-2024 End: 07-15-2024 Refill Ruthie Narvaez BATCH OPERATOR Work Phone: [facility] Comment on above: Other hyperlipidemia ([facility]); Type 2 diabetes mellitus with diabetic polyneuropathy, without long-term current use of insulin ([facility]); Recurrent major depressive disorder, in full remission ([facility]); Essential (primary) hypertension ([facility]) Start: 07-09-2024 End: 07-09-2024 Bamboo flowsheet Sandra Rae MD Work Phone: [facility] Start: 07-09-2024 End: 07-09-2024 Bamboo flowsheet Sandra Rae MD Work Phone: [facility] Start: 07-09-2024 End: 07-09-2024 ambulatory SANDRA RAE Not Available Start: 07-09-2024 End: 07-09-2024 Office outpatient visit 10 minutes Sandra Rae MD Work Phone: [facility] Comment on above: OME (otitis media wi th effusion), left (Primary Dx) Start: 06-07-2024 ambulatory Jonathan Han [facility] Start: 05-31-2024 End: 05-31-2024 Clinisync Result Encounter Sandra Rae MD Work Phone: [facility] Unsolicited Start: 05-31-2024 End: 05-31-2024 Clinisync Result Encounter Sandra Rae MD Work Phone: [facility] Unsolicited Start: 05-27-2024 End: 05-27-2024 [...] RAE Not Available Start: 04-10-2024 End: 04-10-2024 Bamboo flowsheet Ruthie Narvaez BATCH OPERATOR Work Phone: [facility] Start: 04-10-2024 End: 04-10-2024 Bamboo flowsheet Ruthie Jensenzpatrick BATCH OPERATOR Work Phone: [facility] Start: 04-10-2024 End: 04-10-2024 Office outpatient visit 25 minutes Ruthie Narvaez BATCH OPERATOR Work Phone: [facility] Comment on above: Type 2 diabetes josh itus with diabetic polyneuropathy, 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/HCC) (Primary Dx); Primary hypertension (CMS/HCC); Other hyperlipidemia (CMS/HCC); Recurrent major depressive disorder, in full remission (CMS/HCC); Chronic knee pain after total replacement of both knee joints Start: 04-10-2024 End: 04-10-2024 ambulatory RUTHIE SOLANGE Not Available Start: 04-04-2024 End: 04-04-2024 Clinisync Result Encounter Shaikh Tanvir VEGAS Work Phone: [facility] External Department Unsolicited Start: 04-04-2024 End: 04-04-2024 Clinisync Result Encounter Shaikh Tanvir VEGAS Work Phone: [facility] External Department Unsolicited Start: 01-09-2024 End: 01-09-2024 ambulatory SHAIKH TANVIR Not Available Start: 07-06-2023 Patient encounter procedure Shaikh Tanvir VEGAS Work Phone: [facility] Start: 11-07-2022 End: 11-08-2022 ambulatory SHAIKH Carmine SIMON Facility:[facility] Start: 04-01-2022 End: 04-02-2022 ambulatory SHAIKH Carmine SIMON Facility:[facility] Start: 01-28-2022 End: 01-29-[address] ALEJANDRO EDWARDS Facility:[facility] Start: 01-11-2022 Encounter for preprocedural laboratory examination SANDRA [facility] Start: 01-11-2022 End: 01-11-2022 ambulatory SHAIKH Carmine SIMON Facility:[facility] Start: 01-08-2022 End: 01-09-2022 ambulatory SANDRAANYA RAE Facility:[facility] Start: 01-08-2022 End: 01-09-2022 Encounter for preprocedural laboratory examination SANDRA PRINGLENJJenn Facility:[facility] Start: 01-06-2022 Encounter for preprocedural cardiovascular examination [facility] Start: 01-03-2022 End: 01-04-2022 ambulatory SHAIKH Carmine SIMON Facility:[facility] Start: 12-24-2021 End: 12-24-2021 Patient encounter procedure Sandra Rae [facility] Start: 11-11-2021 End: 11-12-2021 ambulatory SHAIKH Carmine SIMON Facility:[facility] Procedures Date Procedure Procedure Detail Performing Clinician Start: 05-31-2024 ALL BASIC METABOLIC PANEL Generic External Data Provider Start: 04-04-2024 MLR HEMOGLOBIN A1C Christopher Simon MD Work Phone: Start: 04-04-2024 TBH URINE T PROTEIN CREAT RATIO Shaikh Tanvir VEGAS Work Phone: Plan of Treatment Date Care Activity Detail Author Start: 12-13-2025 Medicare Annual Well ness (AWV) Medicare Annual Wellness (AWV) [facility] Start: 06-16-2025 End: 06-16-2025 Patient encounter procedure 06/16/2025 10:30 AM EST Office Visit [facility] [address] [place] [phone] Vickey Li MD [address] [place] [phone] [facility] Start: 05-30-2025 Glaucoma screening Diabetes: R etinopathy Screening [facility] Start: 04-04-2025 Urine screening for protein Diabetes: Urine Protein Screening [facility] Start: 03-24-2025 Influenza vaccination N [facility] Start: 12-13-2024 End: 12-13-2024 Patient encounter procedure 12/13/2024 10:00 AM EDT Office Visit [facility] [address] [place] [phone] Vickey Li MD [address] [place] [phone] [facility] Start: 10-10-2024 End: 10-10-2025 Hemoglobin A1c/Hemoglobin.total in Blood Hemoglobin A1c Lab Routine Type 2 diabetes mellitus without complication, without long-term current use of insulin ([facility]) Expected: 10/10/2024 (Approximate), Expires: 10/10/2025 [facility] Work Phone: Comment on above: Expected: 10/10/2024 (Approximate), Expires: 10/10/2025 Start: 10-10-2024 End: 10-10-2024 Patient encounter procedure [facility] Comment on above: Arrived Start: 10-08-2024 End: 10-08-2024 Patient encounter procedure 10/08/2024 9:00 AM EDT Office Visit [facility] [address] [place] [phone] Ruthie Narvaez, GARCIA [address] [place] [phone] [facility] Start: 10-02-2024 Hemoglobin A1c measurement Diabetes: Hemoglobin A1C [facility] Start: 07-27-2024 Glaucoma screening Diabetes: R etinopathy Screening [facility] Start: 07-09-2024 End: 07-09-2024 Patient encounter procedure 07/09/2024 11:10 AM EST Office Visit [facility] [address] [place] [phone] Sandra Rae MD [address] [place] [address] [facility] Start: 07-06-2024 Medicare Annual [...] [address] [place] [address] Sandra Rae MD [address] [place] [address] Arrived [facility] Comment on above: Arrived Start: 04-10-2024 End: 04-10-2024 Patient encounter procedure [facility] Comment on above: Type 2 diabetes josh itus with diabetic polyneuropathy, 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/HCC) (Primary Dx); Primary hypertension (CMS/HCC); Other hyperlipidemia (CMS/HCC); Recurrent major depressive disorder, in full remission ([facility]/HCC) Start: 03-24-2024 Influenza vaccination Influenza Vacc ine (#1) [facility] Start: 10-09-2023 Hemoglobin A1c measurement Diabetes: Hemoglobin A1C [facility] Start: 04-01-2023 Urine screening for protein Diabetes: Urine Protein Screening [facility] Start: 1954 Pneumococcal Vaccine : 65+ Years (1 of 2 - PCV) Pneumococcal Vaccine: 65+ Years (1 of 2 - PCV) [facility] Start: 1943 Pneumococcal Vaccine : 65+ Years (1 of 2 - PCV) Pneumococcal Vaccine: 65+ Years (1 of 2 - PCV) [facility] Payers Date Payer Category Payer Unknown [id number] 2022 Medicare (Managed Care) [employer] [id number] 2022 Unknown [employer] D [employer] [place] [id number] 2022-Present [address] [place] [phone] [id number] 2020 Unknown [id number] 1959 Medicare [id number] 1937 Unknown [id number] [id number]. 593 1937 Unknown [id number] [id number]. 593 1937 Unknown [id number] [id number]. 593 1937 Unknown [id number] 2.16.840.1.588897.3.579.2. 593 1937 Unknown [id number] 2.16.840.1.790194.3.579.2. 593 1937 Unknown [id number] 2.16.840.1.197506.3.579.2. 593 1937 Unknown [id number] 2.16.840.1.281346.3.579.2. 593 1937 Unknown [id number] 2.16.840.1.575484.3.579.2. 1347 1937 Unknown [id number] 2.16.840.1.001916.3.579.2. 1259 1937 Unknown [id number] 2.16.840.1.697349.3.579.2. 1259 1937 Unknown [id number] 2.16.840.1.930893.3.579.2. 1259 1937 Unknown [id number] 2.16.840.1.867219.3.579.2. 1259 1937 Unknown [id number] 2.16.840.1.162996.3.579.2. 1259 1937 Unknown [id number] [id number]. 1259 Social History Date Type Detail Facility Tobacco smoking status Never smoker [facility] Start: 07-06-2023 End: 12-13-2024 Sex Assigned At Female [facility] Start: 01-09-2024 Tobacco smoking status [facility] Never smoked tobacco [facility] Start: 01-09-2024 Tobacco use and exposure Smokeless tobacco non-user [facility] Start: 04-10-2024 End: 12-13-2024 Alcoholic beverage intake Lifetime non-drinker (finding) [facility] Start: 07-06-2023 End: 12-13-2024 History of Social function [facility] Within [...] got money to buy more. Never true [facility] Start: 06-23-2023 Alcohol Comment caffeine: 1-2 cups per day [facility] Start: 1935 Sex assigned at Not on file [facility] NEGATED: Highlighted rowStart: RACHANAF History of tobacco use Passive smoker [facility] Medical Equipment Procedure Code Equipment Code Equipment Origin al Text Equipment Identifier Dates 1 each by Other route in the morning. Take before meals. [id number] Start: 01-09-2024 End: 04-10-2024 Clinical Notes 01-11-2022 to 10-10-2024 Vickey Li MD - 10/10/2024 10:39 AM Evangelist Li MD - 10/10/2024 10:39 AM Evangelist Li MD - 10/10/2024 10:39 AM Evangelist Li MD - 10/10/2024 10:39 AM EDTPatient Instructions Note Date & Type Note Facility 10-10-2024 History of Present illness Narrative Associated Problem(s): Type 2 diabetes mellitus without complications (CMS/HCC) Reports BS controlled and due for A1C. Associated Problem(s): Type 2 diabetes mellitus with diabetic polyneuropathy, 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/HCC) Symptoms tolerable with neurontin and continue. Associated Problem(s): MDD (major depressive disorder), recurrent episode, mild (HCC) (CMS/HCC) Symptoms controlled with zoloft and continue. Associated Problem(s): Essential (primary) hypertension (CMS/HCC) BP controlled and monitor PRN. Associated Problem(s): Class 1 obesity due to excess calories with serious comorbidity and body mass index (BMI) of 31.0 to 31.9 in adult Patient overweight and difficult time losing weight. Discussed proper diet and regular aerobic exercise. Recommend Weight Watchers and need to limit calories and smaller portions. Need to increase activity and regular aerobic exercise several days a week for 30 minutes at a time. Interested in adipex and warned of potential cardiac side effects. Script written for first month and will need to recheck weight in 1 month. OARRS reviewed. Continue medications as prescribed. Associated Problem(s): Chronic knee pain after total replacement of both knee joints Pain tolerable with percocet and continue. Images from the original note were not included. Subjective Patient ID: Lise Sharp is a 89 y.o. female who presents for Follow-up (6 m). Follow up DM, HTN, pain, neuropathy, and depression. Patient stable today. BS well controlled 80-100. Tries to eat well and stick to ADA diet. Denies signs of elevated BS such as polyuria, polyphagia or polydipsia. Checking BP PRN and typically controlled. BP normal today. Taking medication daily and tolerating without side effects. Pain tolerable with medication. Pain in knees and hands. Stiff and sore if sit prolonged and improved once up and moving. Neuropathy stable. Occasional numbness and tingling in hands. Depression controlled with zoloft. Not down or sad and feels happier. Review of Systems Respiratory: Negative for cough, shortness of breath and wheezing. Cardiovascular: Negative for chest pain and palpitations. Gastrointestinal: Negative for abdominal pain, diarrhea, nausea and vomiting. Genitourinary: Negative for dysuria. Objective Physical Exam Constitutional: General: She is not in acute distress. Appearance: Normal appearance. HENT: Head: Normocephalic. Right Ear: Tympanic membrane normal. Left Ear: Tympanic membrane normal. Eyes: Extraocular Movements: Extraocular movements intact. Pupils: Pupils are equal, round, and reactive to light. Cardiovascular: Rate and Rhythm: Normal rate and regular rhythm. Heart sounds: No murmur heard. No friction rub. No gallop. Pulmonary: Effort: Pulmonary effort is normal. Breath sounds: Normal breath sounds. No wheezing, rhonchi or rales. Abdominal: General: Bowel sounds are normal. There is no distension. Palpations: Abdomen is soft. Tenderness: There is no abdominal tenderness. There is no guarding or rebound. Musculoskeletal: Cervical back: Neck supple. Right lower leg: No edema. Left lower leg: No edema. Neurological: Mental Status: She is alert. Assessment/Plan Problem List Items Addressed This Visit Type 2 diabetes mellitus with diabetic polyneuropathy, 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/HCC) Symptoms tolerable with neurontin and continue. MDD (major depressive disorder), recurrent episode, mild (HCC) (CMS/HCC) Symptoms controlled with zoloft and continue. Chronic knee pain after total replacement of both knee joints Pain tolerable with percocet and continue. Relevant Medications oxyCODONE-acetaminophen (Percocet) 5-325 MG tablet Essential (primary) hypertension (CMS/HCC) BP controlled and monitor PRN. Type 2 diabetes mellitus without complications (CMS/HCC) - Primary Reports BS controlled and due for A1C. Relevant Orders Hemoglobin A1c Class 1 obesity due to excess calories with serious comorbidity and body mass index (BMI) of 31.0 to 31.9 in adult Patient overweight and difficult time losing weight. Discussed proper diet and regular aerobic exercise. Recommend Weight Watchers and need to limit calories and smaller portions. Need to increase activity and regular aerobic exercise several days a week for 30 minutes at a time. Interested in adipex and warned of potential cardiac side effects. Script written for first month and will need to recheck weight in 1 month. OARRS reviewed. Continue medications as prescribed. Relevant Medications phentermine (Adipex-P) 37.5 MG tablet documented in this encounter [facility] 08-19-2024 Telephone encounter Note ELLIOT:04/10/2024 NOV:10/08/[address]24 [facility] 08-19-2024 Miscellaneous Notes ELLIOT:04/10/2024 NOV:10/08/2024 documented in this encounter [facility] 07-09-2024 History of Present illness Narrative Subjective Patient ID: Lise Sharp is a 89 y.o. female who presents for Otitis Media (S/p lt tube [facility] 06/06/24) Hearing improved Family History Problem Relation Name Age of Onset Heart disease Mother Heart disease Father Heart disease Sister Heart disease Son passed ; after 2 heart surgeries Active Ambulatory Problems Diagnosis Date Noted Type 2 diabetes mellitus with diabetic polyneuropathy, 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/[facility]) 07/06/2023 Primary hypertension (CMS/HCC) 07/06/2023 Other hyperlipidemia (CMS/HCC) 07/06/2023 Hypothyroid (CMS/HCC) 07/06/2023 Recurrent major depressive disorder, in full remission (CMS/[facility]) 07/06/2023 Chronic knee pain after total replacement of both knee joints 07/06/2023 Encounter for Medicare annual wellness exam 07/06/2023 Exudative age-related macular degeneration, bilateral, with active choroidal neovascularization ([facility]/HCC) 07/08/2023 Essential (primary) hypertension ([facility]/HCC) 01/09/2024 Hypothyroidism, unspecified ([facility]/HCC) 01/09/2024 Type 2 diabetes mellitus without complications ([facility]) 01/09/2024 Chronic allergic rhinitis 01/09/2024 Resolved Ambulatory Problems Diagnosis Date Noted No Resolved Ambulatory Problems Past Medical History: Diagnosis Date Allergic rhinitis COVID-19 05/2021 Decreased hearing Depression ([facility]) Diabetes mellitus, type 2 ([facility]/HCC) Dyslipidemia ([facility]/HCC) Gout HTN (hypertension) ([facility]) Intermittent palpitations Mitral late systolic murmur Osteoarthritis Osteoporosis ([facility]/HCC) Thyroid disease ([facility]/HCC) Ulnar nerve impingement Past Surgical History: Procedure Laterality Date APPENDECTOMY CARPAL TUNNEL RELEASE CATARACT EXTRACTION CHOLECYSTECTOMY JOINT REPLACEMENT Bilateral 2002 Knee Replacements, Dr. Lam MYRINGOTOMY W/ TUBES 06/06/2024 SHOULDER ARTHROSCOPY Left TOTAL HIP ARTHROPLASTY Right [...] (500 mg) before bedtime. 180 tablet 1 oxyCODONE-acetaminophen (Percocet) 5-325 MG tablet Take 1 tablet by mouth every 12 (twelve) hours if needed for severe pain 60 tablet 0 sertraline (Zoloft) 50 MG tablet Take 1.5 tablets (75 mg) by mouth Daily 135 tablet 1 simvastatin (Zocor) 20 MG tablet Take 1 tablet (20 mg) by mouth at bedtime 90 tablet 1 No current facility-administered medications on file prior to visit. Objective Last Recorded Vitals Vitals: 07/09/24 1125 BP: 161/60 ENT Physical Exam Ear Ear comments: LT - TIP&P, dry Assessment/Plan Diagnoses and all orders for this visit: OME (otitis media with effusion), left Doing great after LM&T documented in this encounter [facility] 05-27-2024 Telephone encounter Note Pt had script for 5 days worth requesting the 90 day script like the one that Dr Simon would send in. [facility] 05-27-2024 Miscellaneous Notes Pt had script for 5 days worth requesting the 90 day script like the one that Dr Simon would send in. documented in this encounter [facility] 05-22-2024 History of Present illness Narrative Subjective [...] insulin ([facility]) 07/06/2023 Primary hypertension ([facility]) 07/06/2023 Other hyperlipidemia (CMS/HCC) 07/06/2023 Hypothyroid (CMS/[facility]) 07/06/2023 Recurrent major depressive disorder, in full remission ([facility] [facility]23 Chronic knee pain after total replacement of both knee joints 07/06/2023 Encounter for Medicare annual wellness exam 07/06/2023 Exudative age-related macular degeneration, bilateral, with active choroidal neovascularization ([facility]/HCC) 07/08/2023 Essential (primary) hypertension (CMS/HCC) 01/09/2024 Hypothyroidism, unspecified (CMS/HCC) 01/09/2024 Type 2 diabetes mellitus without complications ([facility]/HCC) 01/09/2024 Chronic allergic rhinitis 01/09/2024 Resolved Ambulatory Problems Diagnosis Date Noted No Resolved Ambulatory Problems Past Medical History: Diagnosis Date Allergic rhinitis COVID-19 05/2021 Decreased hearing Depression (CMS/HCC) Diabetes mellitus, type 2 (CMS/HCC) Dyslipidemia (CMS/HCC) Gout HTN (hypertension) (CMS/HCC) Intermittent palpitations Mitral late systolic murmur Osteoarthritis Osteoporosis ([facility]/HCC) Thyroid disease (CMS/HCC) Ulnar nerve impingement Past [...] with LT t-tube documented in this encounter [facility] 04-10-2024 History of Present illness Narrative Associated Problem(s): Chronic knee pain after total replacement of both knee joints Chronic knee pain, with periods of worsening pain that affects her quality of life and sleep. Uses percocet sparingly as needed. Called in for her. Tolerates it w/o complications/adverse effects. OARRS Reviewed. Associated Problem(s): Primary hypertension (CMS/HCC) Currently taking Losartan 100mg Carvedilol 12.5mg Amlodipine 10mg Checks BP at home; Averages are 120/80; BP elevated today in office- did not take medication yet; Denies orthostatic changes, dizziness, cough, shortness of breath, swelling in extremities. Continue current regimen. Given BP log, advised pt to record BP and bring log back with them to next visit. Associated Problem(s): Other hyperlipidemia (CMS/HCC) Currently taking Simvastatin 20mg Denies any myalgias. Most recent Lipid Panel 03/2024-WNL Continue current regimen. Associated Problem(s): Type 2 diabetes mellitus with diabetic polyneuropathy, without long-term current use of insulin ([facility]) Currently taking Metformin Most recent labs: fasting lipid panel and hemoglobin A1C 5.5% Average FSBS range from BGs range between 90 and 130 No episode of hypoglycemia No medication adverse effects reported by the patient. Patient educated on lifestyle modifications, dietary restrictions, signs and symptoms of hypoglycemia/hyperglycemia and importance of eating regular consistent meals. Stressed upon importance of checking blood glucose at home and bring blood glucose log to appointments. All questions, concerns answered and addressed. Encouraged to call office if persistent hypoglycemia/hyperglycemia on home glucose monitoring noted. Images from the original note were not included. Subjective Patient ID: Lise Sharp is a 88 y.o. female who presents for No chief complaint on file.. HPI Specialists: ENT- [facility] HTN: Currently taking_ Losartan 100mg Carvedilol 12.5mg Amlodipine 10mg Checks BP at home; Averages are 120/80; BP elevated today in office- did not take medication yet; Denies orthostatic changes, dizziness, cough, shortness of breath, swelling in extremities. Continue current regimen. Given BP log, advised pt to record BP and bring log back with them to next visit. HLD: Currently taking Simvastatin 20mg Denies any myalgias. Continue current regimen. Most recent Lipid Panel 03/2024-WNL Visible to patient: No (inaccessible in MyChart) 0 Result Notes Component Ref Range & Units 6 d ago (04/04/24) 6 d ago (04/04/24) 6 d ago (04/04/24) 3 mo ago (01/03/24) TRIGLYCERIDES <=150 mg/dL 51 138 R 9.6 R 26.1 R CHOLESTEROL <=200 mg/dL 185 4.8 R 14.58 Low R 0.2 R HDL CHOLESTEROL 40 - 60 mg/dL 97 High 12.6 R 0.66 R 5.6 R Comment: > or =60 mg/dl - LOW CARDIOVASCULAR RISK <40 mg/dl - HIGH CARDIOVASCULAR RISK LDL CHOLESTEROL CALCULATED mg/dL 78.0 115 High R 2.3 R Comment: <100 mg/dl OPTIMAL 100-129 mg/dl NEAR OR ABOVE OPTIMAL 130-159 mg/dl BORDERLINE HIGH 160-189 mg/dl HIGH >190 mg/dl VERY HIGH VLDL CHOLESTEROL mg/dL 10.2 0.5 R 0.5 R CHOL HDL RATIO 1.9 18 R 0.02 R Comment: 3.3 - 4.4 LOW RISK 4.4 - 7.1 AVERAGE RISK 7.1 - 11.0 MODERATE RISK >11.0 HIGH RISK ALANINE AMINOTRANSFERASE 23 R ALKALINE PHOSPHATASE 91 R TOTAL PROTEIN 7.3 R ALBUMIN LEVEL 3.8 R ALBUMIN GLOBULIN RATIO 1.1 Resulting Agency [facility] DMII: Most recent labs: fasting lipid panel and hemoglobin A1C 5.5% Average FSBS range from BGs range between 90 and 130 No episode of hypoglycemia No medication adverse effects reported by the patient. Patient educated on lifestyle modifications, dietary restrictions, signs and symptoms of hypoglycemia/hyperglycemia and importance of eating regular consistent meals. Stressed upon importance of checking blood glucose at home and bring blood glucose log to appointments. All questions, concerns answered and addressed. Encouraged to call office if persistent hypoglycemia/hyperglycemia on home glucose monitoring noted. DM Eye Exam: Diabetic foot exam: Left: Reflexes 2+ Vibratory sensation normal Proprioception normal Sharp/dull discrimination normal Filament test present Right: Reflexes 2+ Vibratory sensation normal Proprioception normal Sharp/dull discrimination normal Filament test present Education: Check blood sugars daily, notify if <70 or >200. Take medications (pills or insulin) as directed. Monitor for s/s of hypoglycemia (sweaty, dizziness, nausea, vomiting, or shakiness). Watch for increase in thirst, urination, or appetite. Inspect feet frequently monitoring for open wounds , and also recommend yearly eye exam. Pt should attempt to remain as physically active as chronic conditions allow, as well as trying to follow a diet low in carbohydrates, and simple sugars. Review of Systems Constitutional: Negative for activity change, appetite change, chills, diaphoresis, fatigue, fever and unexpected weight change. HENT: Negative for congestion, ear pain, rhinorrhea, sinus pressure, sinus pain, sneezing, sore throat, trouble swallowing and voice change. Eyes: Negative for visual disturbance. Respiratory: Negative for cough, chest tightness, shortness of breath and wheezing. Cardiovascular: Negative for chest pain, palpitations and leg swelling. Gastrointestinal: Negative for abdominal distention, abdominal pain, blood in stool, constipation, diarrhea and vomiting. Genitourinary: Negative for decreased urine volume, dysuria, flank pain, frequency, hematuria and urgency. Musculoskeletal: Negative for arthralgias, gait problem, joint swelling and myalgias. Skin: Negative for rash. Neurological: Negative for dizziness, tremors, syncope, weakness, light-headedness and headaches. Psychiatric/Behavioral: Negative for decreased concentration and suicidal ideas. The patient is not nervous/anxious. Hematological: Does not bruise/bleed easily. Endocrine: Negative for cold intolerance, heat intolerance, polydipsia, polyphagia and polyuria. Objective Physical Exam Vitals reviewed. Constitutional: Appearance: Normal appearance. HENT: Head: Normocephalic and atraumatic. Right Ear: Tympanic membrane normal. Left Ear: Tympanic membrane normal. Nose: Nose normal. Mouth/Throat: Mouth: Mucous membranes are moist. Pharynx: Oropharynx is clear. Eyes: Pupils: Pupils are equal, round, and reactive to light. Cardiovascular: Rate and Rhythm: Normal rate and regular rhythm. Pulses: Normal pulses. Heart sounds: Normal heart sounds. Pulmonary: Effort: Pulmonary effort is normal. Breath sounds: Normal breath sounds. Abdominal: General: Abdomen is flat. Bowel sounds are normal. Palpations: Abdomen is soft. Musculoskeletal: General: Normal range of motion. Cervical back: Normal range of motion. Skin: General: Skin is warm and dry. Capillary Refill: Capillary refill takes less than 2 seconds. Neurological: General: No focal deficit present. Mental Status: She is alert and oriented to person, place, and time. Psychiatric: Mood and Affect: Mood normal. Behavior: Behavior normal. Assessment/Plan Problem List Items Addressed This Visit Type 2 diabetes mellitus with diabetic polyneuropathy, without long-term current use of insulin ([facility]) - Primary Currently taking Metformin Most recent labs: fasting lipid panel and hemoglobin A1C 5.5% Average FSBS range from BGs range between 90 and 130 No episode of hypoglycemia No medication adverse effects reported by the patient. Patient educated on lifestyle modifications, dietary restrictions, signs and symptoms of hypoglycemia/hyperglycemia and importance of eating regular consistent meals. Stressed upon importance of checking blood glucose at home and bring blood glucose log to appointments. All questions, concerns answered and addressed. Encouraged to call office if persistent hypoglycemia/hyperglycemia on home glucose monitoring noted. Primary hypertension (CMS/HCC) Currently taking Losartan 100mg Carvedilol 12.5mg Amlodipine 10mg Checks BP at home; Averages are 120/80; BP elevated today in office- did not take medication yet; Denies orthostatic changes, dizziness, cough, shortness of breath, swelling in extremities. Continue current regimen. Given BP log, advised pt to record BP and bring log back with them to next visit. Other hyperlipidemia (CMS/HCC) Currently taking Simvastatin 20mg Denies any myalgias. Most recent Lipid Panel 03/2024-WNL Continue current regimen. Recurrent major depressive disorder, in full remission (CMS/HCC) Chronic knee pain after total replacement of both knee joints Chronic knee pain, with periods of worsening pain that affects her quality of life and sleep. Uses percocet sparingly as needed. Called in for her. Tolerates it w/o complications/adverse effects. OARRS Reviewed. Relevant Medications oxyCODONE-acetaminophen (Percocet) 5-325 MG tablet documented in this encounter [facility] 04-10-2024 Instructions Ruthie Narvaez NP - 04/10/2024 9:00 AM EDT Your blood pressure is TOO HIGH in the office today. Check your blood pressure at home 3 times per week, preferably in the afternoon. Goal <130/90. Record results in blood pressure log. Bring back with you to your next visit. Education: Check blood sugars daily, notify if <70 or >200. Take medications (pills or insulin) as directed. Monitor for s/s of hypoglycemia (sweaty, dizziness, nausea, vomiting, or shakiness). Watch for increase in thirst, urination, or appetite. Inspect feet frequently monitoring for open wounds , and also recommend yearly eye exam. Pt should attempt to remain as physically active as chronic conditions allow, as well as trying to follow a diet low in carbohydrates, and simple sugars. documented in this encounter [facility] 11-07-2022 Note PROCEDURE: XR HIP RT 2 [...] prosthetic right hip when compared to 01/28/2022. Ruby osseous structures show no acute abnormalities. . Electronically authenticated by: ERNESTO MEDRANO Date: 2022-11-07 12:22 [facility] 01-28-2022 Note PROCEDURE: XR KNEE R [...] authenticated by: ALEJANDRO EDWARDS Date: 2022-01-28 18:09 [facility] 01-28-2022 Note PROCEDURE: XR HIP RT [...] authenticated by: ALEJANDRO EDWARDS Date: 2022-01-28 18:08 [facility] 01-11-2022 Note OPERATIVE NOTE OPERATION DATE: [...] to the recovery room in good condition. [facility] Signed and Approved by: DR SANDRA RAE 01/18/2022 08:11:00 [facility] Evaluation + Plan note No data available for this section [facility] Evaluation note Diagnosis Type 2 diabetes [...] of right ear documented in this encounter [facility] HealthcareEvaluation note* Diagnosis Type 2 diabetes mellitus with diabetic polyneuropathy, without long-term current use of insulin ([facility])- Primary Primary hypertension ([facility]/HCC) Unspecified essential hypertension Other hyperlipidemia ([facility]/HCC) Hypothyroidism, unspecified type ([facility]) Encounter for Medicare annual wellness exam Chronic knee pain after total replacement of both knee joints Chronic allergic rhinitis Recurrent major depressive disorder, in full remission ([facility]/HCC) Chronic knee pain after total replacement of both knee joints- Primary Essential (primary) hypertension ([facility]/HCC) Unspecified essential hypertension Hypothyroidism, unspecified ([facility]) Type 2 diabetes mellitus without complications ([facility]) Chronic allergic rhinitis Recurrent major depressive disorder, in full remission ([facility]) Other hyperlipidemia ([facility]) Type 2 diabetes mellitus with diabetic polyneuropathy, without long-term current use of insulin ([facility])- Primary Primary hypertension ([facility]/HCC) Unspecified essential hypertension Other hyperlipidemia ([facility]/HCC) Recurrent major depressive disorder, in full remission ([facility]) 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- Primary documented in this encounter [facility] HealthcareEvaluation note* Diagnosis Type 2 diabetes mellitus with diabetic polyneuropathy, without long-term current use of insulin ([facility])- Primary Primary hypertension ([facility]/HCC) Unspecified essential hypertension Other hyperlipidemia ([facility]/HCC) Recurrent major depressive disorder, in full remission ([facility]) Chronic knee pain after total replacement of both knee joints documented in this encounter [facility] HealthcareEvaluation note* Diagnosis Type 2 diabetes mellitus with diabetic polyneuropathy, without long-term current use of insulin ([facility])- Primary Primary hypertension ([facility]/HCC) Unspecified essential hypertension Other hyperlipidemia ([facility]/HCC) Hypothyroidism, unspecified type ([facility]) Encounter for Medicare annual wellness exam Chronic knee pain after total replacement of both knee joints Chronic allergic rhinitis Recurrent major depressive disorder, in full remission ([facility]) Chronic knee pain after total replacement of both knee joints- Primary Essential (primary) hypertension ([facility]/HCC) Unspecified essential hypertension Hypothyroidism, unspecified ([facility]) Type 2 diabetes mellitus without complications ([facility]/HCC) Chronic allergic rhinitis Recurrent major depressive disorder, in full remission ([facility]/HCC) Other hyperlipidemia ([facility]/HCC) Type 2 diabetes mellitus with diabetic polyneuropathy, 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/HCC)- Primary Primary hypertension (CMS/HCC) Unspecified essential hypertension Other hyperlipidemia (CMS/HCC) Recurrent major depressive disorder, in full remission ([facility]) Chronic knee pain after total replacement of both knee joints OME (otitis media with effusion), left- Primary documented in this encounter [facility] HealthcareEvaluation note* Diagnosis Type 2 diabetes mellitus with diabetic polyneuropathy, 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/HCC)- Primary Primary hypertension (CMS/HCC) Unspecified essential hypertension Other hyperlipidemia (CMS/HCC) Hypothyroidism, unspecified type ([facility]) Encounter for Medicare annual wellness exam Chronic knee pain after total replacement of both knee joints Chronic allergic rhinitis Recurrent major depressive disorder, in full remission ([facility]) Chronic knee pain after total replacement of both knee joints- Primary Essential (primary) hypertension (CMS/HCC) Unspecified essential hypertension Hypothyroidism, unspecified (CMS/HCC) Type 2 diabetes mellitus without complications ([facility]) Chronic allergic rhinitis Recurrent major depressive disorder, in full remission ([facility]/HCC) Other hyperlipidemia (CMS/HCC) Type 2 diabetes mellitus with diabetic polyneuropathy, 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/HCC)- Primary Primary hypertension (CMS/HCC) Unspecified essential hypertension Other hyperlipidemia (CMS/HCC) Recurrent major depressive disorder, in full remission ([facility]) Chronic knee pain after total replacement of both knee joints Other hyperlipidemia (CMS/HCC) Type 2 diabetes mellitus with diabetic polyneuropathy, 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/HCC) Recurrent major depressive disorder, in full remission ([facility]/HCC) Essential (primary) hypertension ([facility]/HCC) Unspecified essential hypertension documented in this encounter [facility] HealthcareEvaluation note* Diagnosis Type 2 diabetes mellitus with diabetic polyneuropathy, 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/HCC)- Primary Primary hypertension (CMS/HCC) Unspecified essential hypertension Other hyperlipidemia (CMS/HCC) Hypothyroidism, unspecified type ([facility]) Encounter for Medicare annual wellness exam [...] complications ([facility]) Chronic allergic rhinitis Recurrent major depressive disorder, in full remission ([facility]) Other hyperlipidemia ([facility]) Type 2 diabetes mellitus with diabetic polyneuropathy, without long-term current use of insulin ([facility])- Primary Primary hypertension ([facility]) Unspecified essential hypertension Other hyperlipidemia ([facility]/HCC) Recurrent major depressive disorder, in full remission ([facility]) 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 documented in this encounter [facility] HealthcareEvaluation note* Diagnosis Type 2 diabetes mellitus with diabetic polyneuropathy, without long-term current use of insulin ([facility])- Primary Primary hypertension ([facility]) Unspecified essential hypertension Other hyperlipidemia ([facility]) Hypothyroidism, unspecified type ([facility]) Encounter for Medicare annual wellness exam Chronic knee pain after total replacement of both knee joints Chronic allergic rhinitis Recurrent major depressive disorder, in full remission ([facility]) Chronic knee pain after total replacement of both knee joints- Primary Essential (primary) hypertension ([facility]) Unspecified essential hypertension Hypothyroidism, unspecified ([facility]) Type 2 diabetes mellitus without complications ([facility]) Chronic allergic rhinitis Recurrent major depressive disorder, in full remission ([facility]) Other hyperlipidemia ([facility]) Type 2 diabetes mellitus with diabetic polyneuropathy, without long-term current use of insulin ([facility])- Primary Primary hypertension ([facility]) Unspecified essential hypertension Other hyperlipidemia ([facility]) Recurrent major depressive disorder, in full remission ([facility]) Chronic knee pain after total replacement of both knee joints Chronic allergic rhinitis documented in this encounter [facility] HealthcareEvaluation note* Diagnosis Type 2 diabetes mellitus with diabetic polyneuropathy, without long-term current use of insulin ([facility])- Primary Primary hypertension ([facility]) Unspecified essential hypertension Other hyperlipidemia ([facility]) Hypothyroidism, unspecified type ([facility]) Encounter for Medicare annual wellness exam Chronic knee pain after total replacement of both knee joints Chronic allergic rhinitis Recurrent major depressive disorder, in full remission ([facility]) Chronic knee pain after total replacement of both knee joints- Primary Essential (primary) hypertension ([facility]) Unspecified essential hypertension Hypothyroidism, unspecified ([facility]) Type 2 diabetes mellitus without complications ([facility]) Chronic allergic rhinitis Recurrent major depressive disorder, in full remission (CMS/HCC) Other hyperlipidemia (CMS/HCC) Type 2 diabetes mellitus with diabetic polyneuropathy, 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/HCC)- Primary Primary hypertension (CMS/HCC) Unspecified essential hypertension Other hyperlipidemia (CMS/HCC) Recurrent major depressive disorder, in full remission (CMS/HCC) Chronic knee pain after total replacement of both knee joints Type 2 diabetes mellitus without complication, 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/HCC)- Primary Essential (primary) hypertension (CMS/HCC) Unspecified essential hypertension Type 2 diabetes mellitus with diabetic polyneuropathy, 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/HCC) MDD (major depressive disorder), recurrent episode, mild (HCC) (CMS/[facility]) Chronic knee pain after total replacement of both knee joints Class 1 obesity due to excess calories with serious comorbidity and body mass index (BMI) of 31.0 to 31.9 in adult Type 2 diabetes mellitus with moderate nonproliferative diabetic retinopathy without macular edema, left eye (CMS/HCC) Type 2 diabetes mellitus with moderate nonproliferative diabetic retinopathy with macular edema, right eye (CMS/HCC) documented in this encounter [facility] HealthcareEvaluation note* Diagnosis Type 2 diabetes mellitus with diabetic polyneuropathy, 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/HCC)- Primary Primary hypertension (CMS/HCC) Unspecified essential hypertension Other hyperlipidemia Hypothyroidism, unspecified type ([facility]) Encounter for Medicare annual wellness exam Chronic knee pain after total replacement of both knee joints Chronic allergic rhinitis Recurrent major depressive disorder, in full remission (CMS/HCC) Chronic knee pain after total replacement of both knee joints- Primary Essential (primary) hypertension (CMS/HCC) Unspecified essential hypertension Hypothyroidism, unspecified Type 2 diabetes mellitus without complications Chronic allergic rhinitis Recurrent major depressive disorder, in full remission (CMS/HCC) Other hyperlipidemia Type 2 diabetes mellitus with diabetic polyneuropathy, 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/HCC)- Primary Primary hypertension (CMS/HCC) Unspecified essential hypertension Other hyperlipidemia Recurrent major depressive disorder, in full remission (CMS/HCC) Chronic knee pain after total replacement of both knee joints Type 2 diabetes mellitus without complication, without long-term current use of insulin- Primary Essential (primary) hypertension (CMS/HCC) Unspecified essential hypertension Type 2 diabetes mellitus with diabetic polyneuropathy, 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/HCC) MDD (major depressive disorder), recurrent episode, mild (HCC) (CMS/HCC) Chronic knee pain after total replacement of both knee joints Class 1 obesity due to excess calories with serious comorbidity and body mass index (BMI) of 31.0 to 31.9 in adult Type 2 diabetes mellitus with moderate nonproliferative diabetic retinopathy without macular edema, left eye (CMS/HCC) Type 2 diabetes mellitus with moderate nonproliferative diabetic retinopathy with macular edema, right eye (CMS/HCC) Essential (primary) hypertension (CMS/HCC) Unspecified essential hypertension Hypothyroidism, unspecified Type 2 diabetes mellitus without complications Type 2 diabetes mellitus with diabetic polyneuropathy, 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/HCC) documented in this encounter [facility] HealthcareEvaluation note* Diagnosis Type 2 diabetes mellitus with diabetic polyneuropathy, without long-term current use of insulin (HCC)- Primary Primary hypertension Unspecified essential hypertension Other hyperlipidemia Hypothyroidism, unspecified type Encounter for Medicare annual wellness exam Chronic knee pain after total replacement of both knee joints Chronic allergic rhinitis Recurrent major depressive disorder, 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- Primary Essential (primary) hypertension Unspecified essential hypertension Hypothyroidism, unspecified Type 2 diabetes mellitus without complications (HCC) Chronic allergic rhinitis Recurrent major depressive disorder, in full remission Other hyperlipidemia Type 2 diabetes mellitus with diabetic polyneuropathy, without long-term current use of insulin (HCC)- Primary Primary hypertension Unspecified essential hypertension Other hyperlipidemia Recurrent major depressive disorder, 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 Type 2 diabetes mellitus without complication, without long-term current use of insulin (HCC)- Primary Essential (primary) hypertension Unspecified essential hypertension Type 2 diabetes mellitus with diabetic polyneuropathy, without long-term current use of insulin (HCC) MDD (major depressive disorder), recurrent episode, mild Chronic knee pain after total replacement of both knee joints Class 1 obesity due to excess calories with serious comorbidity and body mass index (BMI) of 31.0 to 31.9 in adult Type 2 diabetes mellitus with moderate nonproliferative diabetic retinopathy without macular edema, left eye (HCC) Type 2 diabetes mellitus with moderate nonproliferative diabetic retinopathy with macular edema, right eye (HCC) Encounter for Medicare annual wellness exam- Primary 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, without long-term current use of insulin ([facility]) documented in this encounter [facility]* Diagnosis Type 2 diabetes mellitus with diabetic polyneuropathy, without long-term current use of insulin (HCC)- Primary Primary hypertension Unspecified essential hypertension Other hyperlipidemia Hypothyroidism, unspecified type Encounter for Medicare annual wellness exam Chronic knee pain after total replacement of both knee joints Chronic allergic rhinitis Recurrent major depressive disorder, 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- Primary Essential (primary) hypertension Unspecified essential hypertension Hypothyroidism, unspecified Type 2 diabetes mellitus without complications (HCC) Chronic allergic rhinitis Recurrent major depressive disorder, in full remission Other hyperlipidemia Type 2 diabetes mellitus with diabetic polyneuropathy, without long-term current use of insulin (HCC)- Primary Primary hypertension Unspecified essential hypertension Other hyperlipidemia Recurrent major depressive disorder, 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 Type 2 diabetes mellitus without complication, without long-term current use of insulin (HCC)- Primary Essential (primary) hypertension Unspecified essential hypertension Type 2 diabetes mellitus with diabetic polyneuropathy, without long-term current use of insulin (HCC) MDD (major depressive disorder), recurrent episode, mild Chronic knee pain after total replacement of both knee joints Class 1 obesity due to excess calories with serious comorbidity and body mass index (BMI) of 31.0 to 31.9 in adult Type 2 diabetes mellitus with moderate nonproliferative diabetic retinopathy without macular edema, left eye (HCC) Type 2 diabetes mellitus with moderate nonproliferative diabetic retinopathy with macular edema, right eye (HCC) Encounter for Medicare annual wellness exam- Primary 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 documented in this encounter [facility] Discharge instructions No data available for this section [facility] Summary Purpose Family History No Family History Records FoundNo Family History Records FoundNo Family History Records FoundNo Family History Records Found Advance Directives No Advanced Directives Records FoundNo Advanced Directives Records FoundNo Advanced Directives Records FoundNo Advanced Directives Records Found Additional Source Comments INFORMATION SOURCE (unrecogn ized section and content) DATE CREATED AUTHOR 12/28/2021 Andrea Lopes [facility] DATE CREATED AUTHOR AUTHOR'S ORGANIZ ATION [facility]/10/2022 [facility] DATE CREATED AUTHOR AUTHOR'S ORGANIZ ATION 06/10/2024 [facility] DATE CREATED AUTHOR AUTHOR'S ORGANIZ ATION 12/19/2024 [facility] EPIC Care Teams (unrecognized sec tion and content) Resident Hall Director Relationship Specialty Start Date End Date Kanwal Bo MD [address] [place] [address] PCP - Devoted 07/24/22 Unallocated, Yojana Hernandez MD [address] [place] [address] PCP - General Family Medicine 05/08/24 Ruthie Narvaez NP [address] [place] [address] Nurse Practitioner Family Medicine 03/04/24 Resident Hall Director Relationship Specialty Start Date End Date Kanwal Bo MD [address] [facility] [place] [address] PCP - Devoted 07/24/22 Unallocated, [place] [address] [place] [id number] PCP - General Family Medicine 05/08/24 Ruthie Narvaez NP [address] [place] [address] Nurse Practitioner Family Medicine 03/04/24 Resident Hall Director Relationship Specialty Start Date End Date Kanwal Bo MD [address] [facility] [place] [address] PCP - Devoted 07/24/22 Vickey Li MD [address] [place] [address] PCP - General Family Medicine 05/23/24 Ruthie Narvaez NP [address] [place] [phone] Nurse Practitioner Family Medicine 03/04/24 Resident Hall Director Relationship Specialty Start Date End Date Kanwal Bo MD [address] [place] [address] PCP - Devoted 07/24/22 Vickey Li MD [address] [place] [phone] PCP - General Family Medicine 05/23/24 Ruthie Narvaez NP [address] [place] [phone] Nurse Practitioner Family Medicine 03/04/24 Resident Hall Director Relationship Specialty Start Date End Date Kanwal Bo MD [address] [place], [place] [phone] PCP - Devoted 07/24/22 Vickey Li MD [address] [place] [phone] PCP - General Family Medicine 03/04/24 Ruthie Narvaez NP [address] [place] [phone] Nurse Practitioner Family Medicine 03/04/24 Resident Hall Director Relationship Specialty Start Date End Date Kanwal Bo MD [address] [place], [place] [phone] PCP - Devoted 07/24/22 Vickey Li MD [address] [place] [phone] PCP - General Family Medicine 03/04/24 Ruthie Narvaez NP [address] [place] [address] Nurse Practitioner Family Medicine 03/04/24 Resident Hall Director Relationship Specialty Start Date End Date Kanwal Bo MD [address] [place], [place] [phone] PCP - Devoted 07/24/22 Vickey Li MD [address] [place] [phone] PCP - General Family Medicine 03/04/24 Ruthie Narvaez NP [address] [place] [phone] Nurse Practitioner Family Medicine 03/04/24 Resident Hall Director Relationship Specialty Start Date End Date Kanwal Bo MD [address] [place] [address] PCP - Devoted 07/24/22 Vickey Li MD [address] [place] [phone] PCP - General Family Medicine 05/23/24 Ruthie Narvaez NP [address] [place] [phone] Nurse Practitioner Family Medicine 03/04/24 Resident Hall Director Relationship Specialty Start Date End Date Kanwal Bo MD [address] [facility] [place] [address] PCP - Devoted 07/24/22 Vickey Li MD [address] [place] [phone] PCP - General Family Medicine 05/23/24 Ruthie Narvaez NP [address] [place] [phone] Nurse Practitioner Family Medicine 03/04/24 Resident Hall Director Relationship Specialty Start Date End Date Kanwal Bo MD [address] [place] [address] PCP - Devoted 07/24/22 Vickey Li MD [address] [place] [phone] PCP - General Family Medicine 05/23/24 Ruthie Narvaez NP [address] [place] [phone] Nurse Practitioner Family Medicine 03/04/24 Resident Hall Director Relationship Specialty Start Date End Date Kanwal Bo MD [address] [facility] [place], [place] [phone] PCP - Devoted 07/24/22 Vickey Li MD [address] [place] [phone] PCP - General Family Medicine 05/23/24 Ruthie Narvaez NP [address] [place] [address] Nurse Practitioner Family Medicine 03/04/24 Resident Hall Director Relationship Specialty Start Date End Date Kanwal Bo MD [address] [place] [address] PCP - Devoted 07/24/22 Vickey Li MD [address] [place] [phone] PCP - General Family Medicine 05/23/24 Ruthie Narvaez NP [address] [place] [address] Nurse Practitioner Family Medicine 03/04/24 Resident Hall Director Relationship Specialty Start Date End Date Kanwal Bo MD [address] [place] [address] PCP - Devoted 07/24/22 Vickey Li MD [address] [place] [phone] PCP - General Family Medicine 05/23/24 Ruthie Narvaez NP [address] [place] [address] Nurse Practitioner Family Medicine 03/04/24 Resident Hall Director Relationship Specialty Start Date End Date Kanwal Bo MD [address] [place] [address] PCP - Devoted 07/24/22 Vickey Li MD [address] [place] [phone] PCP - General Family Medicine 05/23/24 Ruthie Narvaez NP [address] [place] [address] Nurse Practitioner Family Medicine 03/04/24 Resident Hall Director Relationship Specialty Start Date End Date Kanwal Bo MD [address] [facility] [place] [address] PCP - Devoted 07/24/22 Vickey Li MD [address] [place] [phone] PCP - General [facility] Medicine 05/23/24 Resident Hall Director Relationship Specialty Start Date End Date Kanwal Bo MD [address] [place] [address] PCP - Devoted 07/24/22 Vickey Li MD [address] [place] [phone] PCP - General Family Medicine 05/23/24 Reason for Visit (unrecogniz ed section and content) Reason Comments Ear Problem Tube check last seen 2021. BMT 01/19/22. Reason Onset Date Comments Med Refill 05/27/2024 Reason Comments Otitis Media S/p lt tube TBH 05/24 11/14 Reason Onset Date Comments Med Refill 07/12/2024 Reason Onset Date Comments Med Refill 08/19/2024 Reason Onset Date Comments Med Refill 09/06/2024 Reason Comments Follow-up 6 m Reason Onset Date Comments Med Refill 10/22/2024 Reason Comments Med Refill Reason Onset Date Comments Med Refill 01/30/2025 FOR RECORDS PERTAINING TO PATIENTS WHO ARE [...] BE BASED ON THE PRIMARY CLINICAL RECORDS. [facility]. provides no warranty or guarantee of the accuracy or completeness of information in this document.
== END 2025-04-08 09:10 | disposition home or self-care (01) ==
LOC: LAB 09:11
PROVIDERS: PCP Family Medicine; Visit Provider Family Medicine
DX: E11.9 Type 2 diabetes mellitus without complications (principal)
CPT/HCPCS: 36415; 83036